=== PATIENT | female | born 1935 | race Caucasian/White ===

== ENCOUNTER 2019-12-19 12:15 | Inpatient (IN) | payer OTHER ==
[2019-12-19 13:22] LABS: Absolute Lymphocytes (CBC) 2.1 K/uL (0.7-4.9); Basophils % 5.4 % (0-1.3); Hematocrit 37.8 % (36.0-45.0); Lymphocytes % 11.9 % (15.3-44.8); MPV 9.2 fL (7.6-11.3); RBC Red Blood Cell Count 3.99 M/uL (3.86-4.86)
[2019-12-19 13:37] LABS: Protime INR 1.03
[2019-12-19 13:48] LABS: Albumin 3.8 g/dL (3.4-5.0); Bilirubin Direct 0.1 mg/dL (0-0.2); Bilirubin Total 0.4 mg/dL (0.2-1.0); Magnesium 1.8 mg/dL (1.8-2.4); Potassium 3.6 mmol/L (3.5-5.1); Protein, Total 7.7 g/dL (6.4-8.2); Troponin (Emerg Dept Use Only) 0.14 ng/mL (0.0-0.045)
--- NOTE | 2019-12-19 14:02 | EDPHYS ---
Physician Documentation [facility] Name: Monique German Age: 84 yrs Sex: Female : 1935 Arrival Date: 12/19/2019 Time: 12:35 Bed 19 Private MD: ED Physician Darryl Apodaca HPI: 12/18 13:29 This 84 yrs old Female presents to ER via EMS with complaints of Chest Pain. jr8 13:29 The patient or guardian reports chest pain that is located primarily in the substernal jr8 area. Onset: acutely, today. The pain does not radiate. Associated signs and symptoms: Pertinent positives: None. The chest pain is described as a heaviness, a pressure. Duration: The patient or guardian reports a single episode, that lasted 15 minute(s). Modifying factors: The symptoms are alleviated by nothing. the symptoms are aggravated by nothing. Severity of pain: At its worst the pain was moderate in the emergency department the pain has resolved and did so just prior to arrival. The patient has not experienced similar symptoms in the past. The patient has not recently seen a physician. Patient stated that she was outside [employer]. Came in to rest. Started to have heavy chest tightness that lasted about 15 minutes. Denied radiation of pain. Stated that she feels fine now. Denies having this in past. No heart history that she is aware of . Historical: - Allergies: 12:55 Demerol; jl7 - Home Meds: 12:55 simvastatin 20 mg Oral tab 1 tab once daily [Active]; Zanaflex 4 mg Oral tab 1 tab jl7 daily [Active]; torsemide 20 mg Oral tab 1 tab once daily [Active]; Detrol LA 4 mg Oral cp24 1 cap once daily [Active]; levothyroxine 100 mcg tab 1 tab once daily [Active]; metformin 500 mg Oral tr24 2 tabs [Active]; Lotrel 5-10 mg Oral cap 1 cap once daily [Active]; PreserVision AREDS oral oral [Active]; Potassium Chloride Oral [Active]; - PMHx: 12:55 Hyperlipidemia; Hypertension; Hypothyroidism; Pulmonary Embolism; jl7 - Immunization history:: Adult Immunizations up to date. - Social history:: Smoking status: Patient denies any tobacco usage or history of. ROS: 13:29 Eyes: Negative for injury, pain, redness, and discharge, ENT: Negative for injury, jr8 pain, and discharge, Neck: Negative for injury, pain, and swelling, Respiratory: Negative for shortness of breath, cough, wheezing, and pleuritic chest pain, Abdomen/GI: Negative for abdominal pain, nausea, vomiting, diarrhea, and constipation, Back: Negative for injury and pain, MS/Extremity: Negative for injury and deformity, Skin: Negative for injury, rash, and discoloration, Neuro: Negative for headache, weakness, numbness, tingling, and seizure. 13:29 Cardiovascular: Positive for chest pain, Negative for edema, orthopnea, palpitations, paroxysmal nocturnal dyspnea. Exam: 13:29 Eyes: Pupils equal round and reactive to light, extra-ocular motions intact. Lids and jr8 lashes normal. Conjunctiva and sclera are non-icteric and not injected. Cornea within normal limits. Periorbital areas with no swelling, redness, or edema. ENT: Nares patent. No nasal discharge, no septal abnormalities noted. Tympanic membranes are normal and external auditory canals are clear. Oropharynx with no redness, swelling, or masses, exudates, or evidence of obstruction, uvula midline. Mucous membranes moist. Neck: Trachea midline, no thyromegaly or masses palpated, and no cervical lymphadenopathy. Supple, full range of motion without nuchal rigidity, or vertebral point tenderness. No Meningismus. Chest/axilla: Normal chest wall appearance and motion. Nontender with no deformity. No lesions are appreciated. Cardiovascular: Regular rate and rhythm with a normal S1 and S2. No gallops, murmurs, or rubs. Normal PMI, no JVD. No pulse deficits. Respiratory: Lungs have equal breath sounds bilaterally, clear to auscultation and percussion. No rales, rhonchi or wheezes noted. No increased work of breathing, no retractions or nasal flaring. Abdomen/GI: Soft, non-tender, with normal bowel sounds. No distension or tympany. No guarding or rebound. No evidence of tenderness throughout. Back: No spinal tenderness. No costovertebral tenderness. Full range of motion. Skin: Warm, dry with normal turgor. Normal color with no rashes, no lesions, and no evidence of cellulitis. MS/ Extremity: Pulses equal, no cyanosis. Neurovascular intact. Full, normal range of motion. Neuro: Awake and alert, GCS 15, oriented to person, place, time, and situation. Cranial nerves II-XII grossly intact. Motor strength 5/5 in all extremities. Sensory grossly intact. Cerebellar exam normal. Normal gait. 13:31 ECG was reviewed by the Attending Physician. jr8 Vital Signs: 12:35 BP 131 / 75; Pulse 103; Resp 17 S; Temp 97.6(O); Pulse Ox 100% on R/A; Weight 65.77 kg jl7 (R); Height 5 ft. 2 in. (157.48 cm) (R); Pain 0/10; 12:35 Body Mass Index 26.52 (65.77 kg, 157.48 cm) jl7 MDM: 12:56 Patient medically screened. jr8 13:53 The patient was not given aspirin in the Emergency Department. Administered by EMS. jr8 Data reviewed: vital signs, nurses notes, lab test result(s), EKG, radiologic studies, plain films. Data interpreted: Pulse oximetry: on room air is 100 %. Interpretation: normal. Counseling: I had a detailed discussion with the patient and/or guardian regarding: the historical points, exam findings, and any diagnostic results supporting the discharge/admit diagnosis, lab results, radiology results, the need for further work-up and treatment in the hospital. 12/18 12:56 Order name: Basic Metabolic Panel; Complete Time: 13:51 12/18 12:56 Order name: CBC with Diff 12/18 12:56 Order name: LFT's; Complete Time: 13:51 12/18 12:56 Order name: Magnesium; Complete Time: 13:51 12/18 12:56 Order name: NT PRO-BNP; Complete Time: 13:51 12/18 12:56 Order name: PT-INR; Complete Time: 13:42 12/18 12:56 Order name: Troponin (emerg Dept Use Only); Complete Time: 13:51 12/18 12:56 Order name: XRAY Chest (1 view); Complete Time: 14:20 12/18 12:56 Order name: EKG; Complete Time: 12:57 12/18 12:56 Order name: Cardiac monitoring; Complete Time: 14:39 12/18 12:56 Order name: EKG - Nurse/Tech; Complete Time: 14:39 jr8 12/18 12:56 Order name: IV Saline Lock; Complete Time: 14:39 jr8 12/18 12:56 Order name: Labs collected and sent; Complete Time: 14:39 jr8 12/18 12:56 Order name: O2 Per Protocol; Complete Time: 14:39 jr8 12/18 12:56 Order name: O2 Sat Monitoring; Complete Time: 14:39 jr8 EC:31 Rate is 88 beats/min. Rhythm is regular, Sinus Rhythm. QRS [place] is Normal. PA interval jr8 is normal at 186 msec. QRS interval is normal at 90 msec. QT interval is normal at 372 msec. Q waves are Present in leads III, aVF. T waves are Inverted in lead III. No ST changes noted. Clinical impression: Inferior WA - age indeterminate. Interpreted by me. Reviewed by me. Administered Medications: 14:00 Drug: Lovenox 1 mg/kg Route: Sub-Q; Site: abdomen; [facility] 14:39 Follow up: Response: No adverse reaction jl7 Disposition: 12/19 08:21 Co-signature as Attending Physician, Darryl Apodaca MD I agree with the assessment and [facility] plan of care. Disposition: 12/19/19 14:02 Hospitalization ordered by Ramesh Martell for Observation. Preliminary diagnosis is Non-ST elevation (NSTEMI) myocardial infarction. - Bed requested for Telemetry/MedSurg (Inpatient). - Status is Observation. jl7 - Condition is Stable. - Problem is new. - Symptoms have improved. Signatures: Dispatcher [employer] [facility] Darryl Apodaca MD MD cha Roszak, Josh, PA PA jr8 Lawrence Arellano RN RN jl7 Kesha Lowery Corrections: (The following items were deleted from the chart) 12/18 14:48 14:02 Hospitalization Ordered by Ramesh Martell DO for Observation. Preliminary eb diagnosis is Non-ST elevation (NSTEMI) myocardial infarction. Bed requested for Telemetry/MedSurg (Inpatient). Status is Observation. Condition is Stable. Problem is new. Symptoms have improved. jr8 14:54 14:48 12/19/2019 14:02 Hospitalization Ordered by Ramesh Martell DO for Observation. eb Preliminary diagnosis is Non-ST elevation (NSTEMI) myocardial infarction. Bed requested for Telemetry/MedSurg (Inpatient). Status is Observation. Condition is Stable. Problem is new. Symptoms have improved. eb 15:49 14:54 12/19/2019 14:02 Hospitalization Ordered by Ramesh Martell DO for Observation. jl7 Preliminary diagnosis is Non-ST elevation (NSTEMI) myocardial infarction. Bed requested for Telemetry/MedSurg (Inpatient). Status is Observation. Condition is Stable. Problem is new. Symptoms have improved. eb
--- NOTE | 2019-12-19 14:02 | ER ---
Nurse's Notes [facility] Name: Monique German Age: 84 yrs Sex: Female : 1935 Arrival Date: 12/19/2019 Time: 12:35 Bed 19 Private MD: Diagnosis: Non-ST elevation (NSTEMI) myocardial infarction Presentation: 12/18 12:35 Chief complaint: EMS states: CP while working in the yard, last 15 minutes, resolved jl7 now. Pt reports CP was severe, felt like an elephant on her chest. Coronavirus screen: Client denies travel out of the [place] in the last 14 days. At this time, the client does not indicate any symptoms associated with coronavirus-19. Ebola Screen: No symptoms or risks identified at this time. Initial Sepsis Screen: Does the patient meet any 2 criteria? No. Patient's initial sepsis screen is negative. Does the patient have a suspected source of infection? No. Patient's initial sepsis screen is negative. Risk Assessment: Do you want to hurt yourself or someone else? Patient reports no desire to harm self or others. Onset of symptoms was December 19, 2019 at 11:30. Care prior to arrival: IV initiated. 20 GA, in the right forearm. Transition of care: patient was not received from another setting of care. 12:35 Method Of Arrival: EMS: [facility] jl7 12:35 Acuity: NBA 2 jl7 Triage Assessment: 12:55 General: Appears in no apparent distress. uncomfortable, Behavior is calm, cooperative, jl7 appropriate for age. Pain: Complains of pain in anterior aspect of left upper chest Pain does not radiate. Pain currently is 0 out of 10 on a pain scale. at worst was 10 out of 10 on a pain scale. Quality of pain is described as pressure, Pain began 1 hour ago. Is lasting a few minutes. Neuro: Level of Consciousness is awake, alert, obeys commands, Oriented to person, place, time, situation. Cardiovascular: Patient's skin is warm and dry. Respiratory: Airway is patent Respiratory effort is even, unlabored, Respiratory pattern is regular, symmetrical. Derm: Skin is pink, warm \T\ dry. Historical: - Allergies: 12:55 Demerol; jl7 - Home Meds: 12:55 simvastatin 20 mg Oral tab 1 tab once daily [Active]; Zanaflex 4 mg Oral tab 1 tab jl7 daily [Active]; torsemide 20 mg Oral tab 1 tab once daily [Active]; Detrol LA 4 mg Oral cp24 1 cap once daily [Active]; levothyroxine 100 mcg tab 1 tab once daily [Active]; metformin 500 mg Oral tr24 2 tabs [Active]; Lotrel 5-10 mg Oral cap 1 cap once daily [Active]; PreserVision AREDS oral oral [Active]; Potassium Chloride Oral [Active]; - PMHx: 12:55 Hyperlipidemia; Hypertension; Hypothyroidism; Pulmonary Embolism; jl7 - Immunization history:: Adult Immunizations up to date. - Social history:: Smoking status: Patient denies any tobacco usage or history of. Screenin:57 Abuse screen: Denies threats or abuse. Denies injuries from another. Nutritional jl7 screening: No deficits noted. Tuberculosis screening: No symptoms or risk factors identified. Fall Risk IV access (20 points). Total [place] Fall Scale indicates No Risk (0-24 pts). Assessment: 12:57 General: See triage assessment. jl7 Vital Signs: 12:35 BP 131 / 75; Pulse 103; Resp 17 S; Temp 97.6(O); Pulse Ox 100% on R/A; Weight 65.77 kg jl7 (R); Height 5 ft. 2 in. (157.48 cm) (R); Pain 0/10; 12:35 Body Mass Index 26.52 (65.77 kg, 157.48 cm) jl7 ED Course: 12:35 Patient arrived in ED. jl7 12:52 Triage completed. jl7 12:55 Zack Villa PA is PHCP. jr8 12:55 Darryl Apodaca MD is Attending Physician. jr8 12:55 Arm band placed on right wrist. EKG completed in triage. Results shown to . jl7 12:57 Patient has correct armband on for positive identification. Placed in gown. Bed in low jl7 position. Call light in reach. Side rails up X 1. ekg monitor tech on. Pulse ox on. NIBP on. Warm blanket given. 12:57 Initial lab(s) drawn, by me, sent to lab. Maintain EMS IV. Dressing intact. Good blood jl7 return noted. Site clean \T\ dry. Gauge \T\ site: 20 right FA. Patient maintains SpO2 saturation greater than 95% on room air. 13:53 XRAY Chest (1 view) In Process Unspecified. EDMS 13:55 Lawrence Arellano, RN is Primary Nurse. jl7 14:01 Ramesh Martell DO is Hospitalizing Provider. jr8 15:35 No provider procedures requiring assistance completed. Patient admitted, IV remains in jl7 place. intact, No redness/swelling at site. Administered Medications: 14:00 Drug: Lovenox 1 mg/kg Route: Sub-Q; Site: abdomen; jl7 14:39 Follow up: Response: No adverse reaction jl7 Outcome: 14:02 Decision to Hospitalize by Provider. jr8 15:35 Admitted to Tele accompanied by tech, via wheelchair, room 402, with chart, Report jl7 called to HYACINTH Ahuja 15:35 Condition: stable 15:35 Discharge instructions given to patient, Instructed on the need for admit, Demonstrated understanding of instructions. 15:49 Patient left the ED. jl7 Signatures: Dispatcher [employer] EDMS Zack Villa PA PA jr8 Lawrence Arellano, RN RN jl7
--- NOTE | 2019-12-19 14:08 | RAD REPORT ---
EXAM DESCRIPTION: RAD - Chest Single View - 12/19/2019 1:53 pm CLINICAL HISTORY: CHEST PAIN COMPARISON: Two view chest September 2017 TECHNIQUE: AP portable chest image was obtained 12/19/2019 1:53 pm . FINDINGS: Lung volumes are reduced compared to the prior study. This accentuates the baseline inters titial pattern. No significant change evident. No failure or volume overload suspected. Heart and vas culature are normal. No measurable pleural effusion and no pneumothorax. No acute bony abnormality se en. No acute aortic findings suspected. IMPRESSION: No acute cardiopulmonary process. No significant change from comparison study.
[2019-12-19] MEDS ORDERED: ENOXAPARIN 60 MG/0.6 ML SQ ONE (14:27)
--- NOTE | 2019-12-19 14:29 | P.HP ---
Certification for Inpatient Patient admitted to: Observation With expected LOS: <2 Midnights Patient will require the following post-hospital care: None Practitioner: I am a practitioner with admitting privileges, knowledge of patient current condition, hospital course, and medical plan of care. Services: Services provided to patient in accordance with Admission requirements found in Title 42 Section 412.3 of the Code of Federal Regulations Patient History Date of Service: 12/19/19 Primary Care Provider: Dr. Bailon Reason for admission: Chest pain History of Present Illness: 84-year-old female with history of diabetes mellitus type 2 non- insulin dependent, hypertension, hyperlipidemia, hypothyroidism, and chronic renal disease. Patient reports chest pain today. It was substernal in area. The pain was persistent for about 15-30 min. She denied any fever, chills, shortness of breath, nausea vomiting. Due to her risk factor she was brought in by EMS. In the ER patient was evaluated. Vital signs stable. EKG shows no significant ST changes. White count 17.8, hemoglobin 12. Sodium 139, potassium 3.6. BUN of 19, creatinine 1.38 with a GFR 36. Glucose 162. Troponin 0.14. Chest x-ray unremarkable. Patient admitted for further observation. When I saw the patient ER, she was without any chest pain. She reported chest pain occurred while she was picking up pecans. Allergies meperidine [From Demerol] Allergy (Unverified 07/14/16 16:35) Unknown Home medications list reviewed: Yes - Past Medical/Surgical History Diabetic: Yes -: Diabetes mellitus type 2 [id number] -: Hypertension -: Hyperlipidemia -: Chronic renal disease stage III -: Hypothyroidism -: Urinary incontinence -: Bilateral knee replacement -: Bilateral shoulder repair -: Appendectomy -: Hysterectomy Psychosocial/ Personal History: Patient lives at home. Takes care of . - Family History Father -: Heart disease Mother -: Heart disease - Social History Smoking Status: Never smoker Alcohol use: No CD- Drugs: No Caffeine use: Yes Place of Residence: Home Review of Systems General: Unremarkable Eyes: Unremarkable ENT: Unremarkable Respiratory: Unremarkable Cardiovascular: Chest Pain, As per HPI Gastrointestinal: Unremarkable Genitourinary: Unremarkable Musculoskeletal: Unremarkable Integumentary: Unremarkable Neurological: Unremarkable Lymphatics: Unremarkable Physical Examination - Physical Exam General: Alert, In no apparent distress, Oriented x3, Cooperative HEENT: Atraumatic, Normocephalic, PERRLA, Mucous membr. moist/pink Neck: Supple Respiratory: Clear to auscultation bilaterally, Normal air movement Cardiovascular: Normal pulses, Regular rate/rhythm Gastrointestinal: Normal bowel sounds, Soft and benign, Non-distended, No tenderness, No masses, No rebound, No guarding Musculoskeletal: No erythema, No tenderness, No warmth Integumentary: No tenderness/swelling, No erythema, No warmth, No cyanosis Neurological: Normal speech, Normal strength at 5/5 x4 extr, Normal tone, Normal affect - Studies Laboratory Data (last 24 hrs) 12/19/19 12:57: PT 12.2, INR 1.03 12/19/19 12:57: WBC 17.9 H, Hgb 12.4, Hct 37.8, Plt Count 319 12/19/19 12:57: Sodium 139, Potassium 3.6, BUN 19 H, Creatinine 1.38 H, Glucose 162 H, Magnesium 1.8, Total Bilirubin 0.4, AST 15, ALT 20, Alkaline Phosphatase 37 L Assessment and Plan - Plan Impression: Chest pain, atypical Hypertension Hyperlipidemia Acute on chronic renal disease stage III Diabetes mellitus type 2 [id number] Hypothyroidism Urinary continence Plan: Chest pain, atypical: Patient will be admitted for further evaluation and observation. Will consult cardiology for further recommendation. Will obtain echocardiogram. Will monitor telemetry and cardiac enzymes. Will provide DVT prophylaxis-Lovenox. Continue aspirin, blood pressure medication and statin medication. Will obtain lab to further evaluate. Await further recommendations from cardiology. Anticipate likely discharge if workup unremarkable. Hypertension: Continue with home medication of Norvasc, benazepril. Hyperlipidemia: Continue with Zocor. Recheck fasting lipid panel in the morning. Acute on chronic renal disease stage III: Will provide IV fluids up to 1 L. may need to make adjustments to her medication. Will benefit with nephrology evaluation as an outpatient. Diabetes mellitus type 2 ear-njphtmc-qgfugkpfn: Will monitor Accu-Cheks. Provide sliding scale. Hold metformin. Will check A1c Hypothyroidism: Will check tsh and free T4. Continue medication. Urinary continence: Provide medication. Discharge Plan: Home Plan to discharge in: 24 Hours - Advance Directives Does patient have a Living Will: No Does patient have a Durable POA for Healthcare: No - Code Status/Comfort Care Code Status Assessed: Yes (Patient is full code) Time Spent Managing Pts Care (In Minutes): 55
[2019-12-19] MEDS ORDERED: TIZANIDINE 4 MG TABLET PO PRN (15:33)
[2019-12-19] MEDS ORDERED: ONDANSETRON 4 MG/2 ML VIAL IV PRN (15:33)
[2019-12-19 15:54] VITALS: BMI 26.5
[2019-12-19] MEDS ORDERED: ENOXAPARIN 40 MG/0.4 ML SQ SCH (16:00)
[2019-12-19] MEDS ORDERED: POTASSIUM CL SA 10 MEQ TAB PO ONE (16:00)
[2019-12-19] MEDS ORDERED: MAGNESIUM SULFATE 1 gm IVPB 1 GM/100 ML BAG IV ONE (16:00)
[2019-12-19] MEDS: NA CHLORIDE 0.9% 1,000 ML IV SCH (16:28)
[2019-12-19] MEDS: INSULIN -REGULAR HUMAN 50 UNIT/0.5 ML ML SQ SCH ×2 (16:30→19:53)
[2019-12-19 18:02] LABS: Urine Appearance CLEAR; Urine Bilirubin NEGATIVE (NEG); Urine Blood NEGATIVE (NEG); Urine Color YELLOW; Urine Glucose NEGATIVE (NEG); Urine Protein NEGATIVE (NEG); Urine Specific Gravity <=1.005 (1.005-1.030); Urine Urobilinogen 0.2 mg/dL (0.2-1.0)
[2019-12-19 18:03] LABS: Urine Microscopic Reflex NO UMIC
[2019-12-19] MEDS: ATORVASTATIN 10 MG TAB PO SCH (19:52)
[2019-12-19 20:09] LABS: CKMB Creatine Kinase MB 2.4 ng/mL (0.3-3.6)
[2019-12-19 20:13] LABS: Troponin I 0.7 ng/mL (0.0-0.045)
[2019-12-19] MEDS ORDERED: TOLTERODINE LA 4 MG CAP PO SCH (21:00)
[2019-12-19] MEDS ORDERED: ENOXAPARIN 80 MG/0.8 ML SQ SCH (21:00)
[2019-12-19 22:00] LABS: Blood Morphology Comment NOT SEEN (NOT SEEN); Platelet Estimate ADEQ
[2019-12-20] MEDS: ACETAMINOPHEN 500 MG TAB PO PRN (00:07)
[2019-12-20 03:37] LABS: Absolute Lymphocytes (CBC) 3.2 K/uL (0.7-4.9); Basophils % 0.5 % (0-1.3); Hematocrit 37.4 % (36.0-45.0); Lymphocytes % 18.2 % (15.3-44.8); MPV 8.8 fL (7.6-11.3); RBC Red Blood Cell Count 3.99 M/uL (3.86-4.86)
[2019-12-20 03:57] LABS: Magnesium 2.2 mg/dL (1.8-2.4); Potassium 4.1 mmol/L (3.5-5.1); Thyroid Stimulating Hormone 0.236 uIU/mL (0.360-3.740)
[2019-12-20 03:58] LABS: CKMB Creatine Kinase MB 3.1 ng/mL (0.3-3.6)
[2019-12-20 03:59] LABS: Troponin I 0.76 ng/mL (0.0-0.045)
[2019-12-20] MEDS: INSULIN -REGULAR HUMAN 50 UNIT/0.5 ML ML SQ SCH ×4 (07:30→20:35)
[2019-12-20] MEDS: ASPIRIN EC 81 MG TAB PO SCH (08:21)
[2019-12-20] MEDS: CYANOCOBALAMIN 1,000 MCG TAB PO SCH (08:21)
[2019-12-20] MEDS: AMLODIPINE 5 MG TAB PO SCH (08:21)
[2019-12-20] MEDS: TORSEMIDE 20 MG TAB PO SCH (08:22)
[2019-12-20] MEDS: TOLTERODINE LA 4 MG CAP PO SCH (08:22)
[2019-12-20] MEDS ORDERED: ENOXAPARIN 40 MG/0.4 ML SQ SCH (09:00)
[2019-12-20] MEDS ORDERED: BENAZEPRIL 10 MG TAB PO SCH (09:00)
--- NOTE | 2019-12-20 09:57 | P.PN ---
Subjective Date of Service: 12/20/19 Primary Care Provider: Dr. Bailon Chief Complaint: Chest pain Subjective: Other (Patient without chest pain or shortness of breath pre) Physical Examination - Vital Signs Temperature: 97.5 F Blood Pressure: 153/71 Pulse: 78 Respirations: 16 Pulse Ox (%): 95 - Physical Exam General: Alert, In no apparent distress, Oriented x3, Cooperative HEENT: Atraumatic Neck: Supple Respiratory: Clear to auscultation bilaterally, Normal air movement Cardiovascular: Normal pulses, Regular rate/rhythm Gastrointestinal: Normal bowel sounds, Soft and benign, Non-distended, No masses, No rebound, No guarding Neurological: Normal speech, Normal strength at 5/5 x4 extr, Normal tone, Normal affect - Studies Laboratory Data (last 24 hrs) 12/19/19 12:57: PT 12.2, INR 1.03 12/19/19 12:57: WBC 17.9 H, Hgb 12.4, Hct 37.8, Plt Count 319 12/19/19 12:57: Sodium 139, Potassium 3.6, BUN 19 H, Creatinine 1.38 H, Glucose 162 H, Magnesium 1.8, Total Bilirubin 0.4, AST 15, ALT 20, Alkaline Phosphatase 37 L Medications List Reviewed: Yes Assessment & Plan Discharge Plan: Home Plan to discharge in: 48 Hours Physician Review Additional Text: Impression: Chest pain, with noted elevation in troponin secondary to NSTEMI Hypertension Hyperlipidemia Acute on chronic renal disease stage III Diabetes mellitus type 2 [id number]-poddsztri Hypothyroidism Urinary continence Plan: Chest pain, with noted elevation in troponin secondary to NSTEMI: Lovenox was increased to 1 milligram/kilograms subcu twice daily. Patient without chest pain at this time. Continue aspirin, blood pressure medication and statin. Await recommendations by Cardiology. Anticipate need for heart catheterization. Will discuss further with cardiology. Hypertension: Continue with home medication of Norvasc, benazepril. Will monitor and adjust appropriately. Hyperlipidemia: Continue with Zocor. LDL 65 Acute on chronic renal disease stage III: Continue with IV fluids up to 1 L. may need to make adjustments to her medication. Will benefit with nephrology evaluation as an outpatient. Diabetes mellitus type 2 [id number]-dvzwkxpcg: A1c 6.0. Continue sliding scale. Hold metformin in anticipation for possible need for heart catheterization. Hypothyroidism: Continue medication. Urinary continence: Continue medication. Time Spent Managing Pts Care (In Minutes): 55
[2019-12-20] MEDS: NA CHLORIDE 0.9% 1,000 ML IV SCH (11:33)
[2019-12-20] MEDS: ENOXAPARIN 80 MG/0.8 ML SQ SCH (13:31)
[2019-12-20] MEDS: METOPROLOL TAR 25 MG TAB PO SCH (17:08)
--- NOTE | 2019-12-20 19:33 | CON ---
Date of Consultation: 12/20/2019 History Of Present Illness: [id number]-[id number] myocardial infarction. History Of Present Illness: Ms. German is an 84-year-old woman, who has a history of hypertension, d iabetes, dyslipidemia, but no coronary artery disease that is known. She has had negative cardiac wo rkup many years ago in [place] by Dr. Cardenas, all of which has been negative, but she came in with cohen bsternal chest pressure radiating to the arm with shortness of breath, nausea, and diaphoresis, and w as found to have a troponin of 0.76. EKG showed nonspecific changes. Her chest x-ray was negative. Her creatinine is 1.03. She had a triglyceride of 386 and a TSH of 0.2. She continues to have inte rmittent chest pain with minimal exertion. She denied PND, orthopnea, pedal edema, palpitation, or s yncope. She denied any fever or chills. Past Medical History: As stated above. Allergies: SHE IS ALLERGIC TO DEMEROL. Review of Systems: Negative. Social History: Negative. Family History: Positive for heart disease. Medications: At home include aspirin, Lipitor, benazepril, Lasix, metformin, and Synthroid. Physical Examination: Vital Signs: Stable. She is afebrile. HEENT: Negative. Neck: Supple with no bruit. Chest: Clear to auscultation and percussion. Cardiac: Regular rhythm and rate. No murmurs, gallops, or rubs. Abdomen: Benign. Extremities: No clubbing, cyanosis, or edema. Skin: Dry and intact. Extremities: Her pulses were present in the femoral and distal areas. Neurologic: She was nonfocal. Impression And Plan: Bwc-MC-rfjhntroo myocardial infarction. She is presently on aspirin, Lipitor, and Lasix as well as benazepril, metformin, and Synthroid. I think she is also on Lovenox, which we will hold after tomorrow's dose. We will add metoprolol 25 mg b.i.d. We will plan a heart catheteri zation on Sunday next week. She may require TriCor. She may need her thyroid dose adjusted. Her bl ood pressure, diabetes, and dyslipidemia are fairly stable at this point except for the triglyceride. We will continue to follow her. NB/MODL Voice ID: [id number] Report ID: [id number]
[2019-12-20] MEDS ORDERED: NITROGLYCERIN 0.4 MG/TAB SL PRN (20:17)
[2019-12-20] MEDS: BENAZEPRIL 10 MG TAB PO SCH (20:34)
[2019-12-20] MEDS: ATORVASTATIN 10 MG TAB PO SCH (20:34)
[2019-12-20] MEDS ORDERED: NITROGLYCERIN 0.4 MG/TAB SL ONE (20:36)
[2019-12-21] MEDS: METOPROLOL TAR 25 MG TAB PO SCH ×2 (06:09→18:07)
[2019-12-21] MEDS: LEVOTHYROXINE SOD 0.1 MG TAB PO SCH (06:09)
[2019-12-21] MEDS: INSULIN -REGULAR HUMAN 50 UNIT/0.5 ML ML SQ SCH ×4 (07:30→20:56)
--- NOTE | 2019-12-21 07:46 | EKG ---
Test Date: 2019-12-19 Test Time: 12:42:57 Folder And Notcher: KATHLEEN MEASUREMENT RESULTS: Intervals: Rate: 88 VT: 186 QRSD: 90 QT: 372 QTc: 450 [place]: P: 27 VT: 186 QRS: 2 T: 19 INTERPRETIVE STATEMENTS: Normal sinus rhythm with sinus arrhythmia Inferior infarct, age undetermined Anterior infarct, age undetermined Abnormal ECG Compared to ECG 09/22/2009 12:23:32 Myocardial infarct finding now present Electronically Signed On 12-21-19 07:41:18 DIRECTOR OF DEVELOPMENT AND MARKETING by Gregory Jarrett
[2019-12-21] MEDS: TOLTERODINE LA 4 MG CAP PO SCH (08:58)
[2019-12-21] MEDS: BENAZEPRIL 10 MG TAB PO SCH (08:58)
[2019-12-21] MEDS: TORSEMIDE 20 MG TAB PO SCH (08:58)
[2019-12-21] MEDS: ASPIRIN EC 81 MG TAB PO SCH (08:58)
[2019-12-21] MEDS: OCUVITE (VIT A,C & E/LUTEIN/MINERAL) TABLET PO SCH (08:58)
[2019-12-21] MEDS: AMLODIPINE 5 MG TAB PO SCH (08:59)
[2019-12-21] MEDS: CYANOCOBALAMIN 1,000 MCG TAB PO SCH ×2 (08:59→09:00)
[2019-12-21] MEDS: NA CHLORIDE 0.9% 1,000 ML IV SCH (09:00)
--- NOTE | 2019-12-21 10:01 | P.PN ---
Subjective Date of Service: 12/21/19 Primary Care Provider: Dr. Bailon Chief Complaint: Chest pain Subjective: Doing well Physical Examination - Vital Signs Temperature: 97.6 F Blood Pressure: 125/68 Pulse: 68 Respirations: 18 Pulse Ox (%): 94 - Physical Exam General: Alert, In no apparent distress, Oriented x3, Cooperative HEENT: Atraumatic Neck: Supple Respiratory: Clear to auscultation bilaterally, Normal air movement Cardiovascular: Normal pulses, Regular rate/rhythm Gastrointestinal: Normal bowel sounds, Soft and benign, Non-distended, No tenderness, No masses, No rebound, No guarding Musculoskeletal: No tenderness, No warmth Neurological: Normal speech, Normal strength at 5/5 x4 extr, Normal tone, Normal affect - Studies Microbiology Data (last 24 hrs): 12/19/19 16:25 Nasopharnyx Coronavirus COVID-19 PCR - Final Medications List Reviewed: Yes Assessment & Plan Discharge Plan: Home Plan to discharge in: 48 Hours Physician Review Additional Text: Impression: Chest pain, with noted elevation in troponin secondary to NSTEMI Hypertension Hyperlipidemia Acute on chronic renal disease stage III Diabetes mellitus type 2 [id number] Hypothyroidism Urinary continence Plan: Chest pain, with noted elevation in troponin secondary to NSTEMI: Continue current medication. Patient on aspirin, BP meds, beta lesley, statin medication and Lovenox. Case discussed with cardiology. Patient will have heart catheterization tomorrow. Await findings. Anticipate improvement over the next 24-48 hr with possible discharge pending heart catheterization results. I will turn the service over to Dr. Bailon tomorrow. I will go over plan of care with him. Hypertension: Continue with home medication of Norvasc, benazepril, metoprolol. Will monitor and adjust appropriately. Hyperlipidemia: Continue with Zocor, fish oil. LDL 65, TG 386 Acute on chronic renal disease stage III: Will benefit with nephrology evaluation as an outpatient. Diabetes mellitus type 2 [id number]: A1c 6.0. Continue sliding scale. Hold metformin in anticipation for possible need for heart catheterization. Hypothyroidism: Continue medication. Urinary continence: Continue medication. Time Spent Managing Pts Care (In Minutes): 55
[2019-12-21] MEDS: MORPHINE 2 MG/ML SYR IV PRN (13:57)
[2019-12-21] MEDS: ENOXAPARIN 80 MG/0.8 ML SQ SCH (14:03)
[2019-12-21] MEDS: ATORVASTATIN 10 MG TAB PO SCH (20:56)
[2019-12-21] MEDS: DOCOSAHEXANOIC AC/EPA 1000 MG PO SCH (20:56)
[2019-12-21] MEDS ORDERED: NITROGLYCERIN 0.4 MG/TAB SL ONE (20:57)
[2019-12-22] MEDS: METOPROLOL TAR 25 MG TAB PO SCH ×2 (06:09→17:43)
[2019-12-22] MEDS: LEVOTHYROXINE SOD 0.1 MG TAB PO SCH (06:09)
[2019-12-22] MEDS ORDERED: NA CHLORIDE 0.9% 1,000 ML ONE (06:21)
[2019-12-22] MEDS: INSULIN -REGULAR HUMAN 50 UNIT/0.5 ML ML SQ SCH ×4 (07:30→19:55)
[2019-12-22] MEDS: ASPIRIN EC 81 MG TAB PO SCH (08:29)
[2019-12-22] MEDS: AMLODIPINE 5 MG TAB PO SCH (08:29)
[2019-12-22] MEDS: CYANOCOBALAMIN 1,000 MCG TAB PO SCH ×2 (08:30→12:46)
[2019-12-22] MEDS: DOCOSAHEXANOIC AC/EPA 1000 MG PO SCH ×2 (08:42→19:48)
--- NOTE | 2019-12-22 09:23 | PN ---
Date of Progress Note: 12/21/2019 Ms. German has came in with non-ST elevation myocardial infarction. Continues to have intermittent c hest pressure. Yesterday, she had 1 episode that was resolved with 1 nitroglycerin and 2 mg of morph ine IV. She did not have any further chest pain since. Her troponin peaked at 0.76. Her vital sign s remained stable. She is afebrile. She is in sinus rhythm. Her exam did not reveal any congestive heart failure. There were no rales or edema. The plan is to continue her present regimen including aspirin, Lipitor, benazepril, Lasix, metformin, Synthroid, metoprolol. We will hold Lovenox the day before the catheterization. Catheterization is planned for 12/22/2019. ZEHRA Voice ID: [id number] Report ID: [id number]
[2019-12-22] MEDS ORDERED: HEPA 1000U/500MLS 1,000 UNIT/500 ML BAG IV ONE ×2 (10:29→11:41)
[2019-12-22] MEDS ORDERED: LIDOCAINE 1% 20 ML MDV ONE (10:29)
[2019-12-22] MEDS ORDERED: HEPARIN 5000 UNIT/ML 1 ML VIAL ONE (10:30)
[2019-12-22] MEDS ORDERED: MIDAZOLAM HCL 2 MG/2 ML INJ ONE (10:30)
[2019-12-22] MEDS ORDERED: ATROPINE SULF 1 MG/10 ML SYR IV ONE (10:30)
[2019-12-22] MEDS ORDERED: FENTANYL CITR 100 MCG/2 ML ONE (10:30)
[2019-12-22] MEDS ORDERED: VERAPAMIL HCL 10 MG/4 ML VIAL IV ONE (10:30)
[2019-12-22] MEDS ORDERED: TICAGRELOR 90 MG TABLET PO ONE (11:44)
[2019-12-22] MEDS: OCUVITE (VIT A,C & E/LUTEIN/MINERAL) TABLET PO SCH (12:46)
[2019-12-22] MEDS: TORSEMIDE 20 MG TAB PO SCH (12:47)
[2019-12-22] MEDS: TOLTERODINE LA 4 MG CAP PO SCH (12:51)
[2019-12-22] MEDS: ENOXAPARIN 80 MG/0.8 ML SQ SCH (13:32)
[2019-12-22] MEDS: ATORVASTATIN 10 MG TAB PO SCH (19:48)
[2019-12-23] MEDS: MORPHINE 2 MG/ML SYR IV PRN (00:36)
--- NOTE | 2019-12-23 01:33 | OP ---
Date of Procedure: 12/22/2019 Surgeon: PHYLLIS LAROSE Procedure Performed: 1.Selective coronary angiogram. 2.Percutaneous coronary intervention of the mid left anterior descending, 99% stenosis. This is the culprit for the acute myocardial infarction. Indication: Acute non-ST elevation myocardial infarction. Access: Right radial artery 6-Maldivian closed with TR band. Complications: None. Anesthesia: Total sedation time was 55 minutes. Description Of Procedure: After risks, benefits, and alternatives were explained, the patient agreed to the procedure and signed informed consent. The patient was brought into the cardiac catheterizat ion laboratory and prepped and draped in the usual sterile fashion. We accessed the right radial art autumn using pediatric micropuncture kit after achieving adequate moderate sedation using fentanyl and V ersed. Then, we put a 6-Maldivian slender sheath and took a 5-Maldivian Excello catheter into the aortic nicolette t, engaged left main and right coronary artery, and took standard views, and then decided to proceed with the intervention. Intervention Details: We gave heparin to assure ACT level above 250 throughout the procedure and the n we loaded the patient with 180 mg of Brilinta and we took a 6-Maldivian EBU 3.5 guide into the aortic root, engaged the left main, and then we took a short Runthrough wire into the left main and LAD acro ss the stenotic area and then we used a 2.5 x 50 mm NC balloon. Lesion was not expanded fully. Then , we used a 3.5 x 50 mm NC balloon and did the IVUS and the affected luminal area was 3.2 sq mm and t here was a large burden of calcium. We tried to get a Emelle balloon, however, due to the calcium burden could not pass it through, but using a 3.5 x 50 mm NC balloon, the lesion opened and dilated very well. Then, we took a 3.0 x 60 mm Synergy drug-eluting stent across the stenosis successfully. The stent was deployed with 0% residual restenosis. Then, we removed all catheters and wires, and p laced TR band after removal of the sheath with good hemostasis. Findings: 1.Left main distal has 60% stenosis and the proximal LAD has about 60% stenosis. 2.LAD proximal 60% stenosis and mid LAD 99% stenosis status post successful PCI as above, which is a culprit for the AL. 3.Left circumflex is moderate sized with OM. First OM has 90% stenosis in the midportion long lesio n. 4.RCA is large, dominant, with no significant coronary artery disease, has in the midportion at 10% to 20% with this large vessel. Impression: Severe multivessel coronary artery disease involving the distal left main and proximal L AD and mid LAD as well as the mid OM. Plan: Status post successful PCI of the very tight lesion of the mid LAD. It was 99%. I had discus cassie with the patient before sedation and she absolutely refuses an open-heart surgeries at this poin t. We will continue Brilinta, aspirin, and high dose statin, and we will plan on intervention of the first OM and distal left main and proximal LAD is to be done at a higher level of care facility and will probably need some form of atherectomy prior to undergoing a stent. Discussed this with the finesse linton. She agreed to the plan. At this point, she is hemodynamically stable. She will be observed o vernight. If no complications, the patient can be released and will arrange for PCI distal left main and proximal LAD as well as OM at a later time with the use of atherectomy. SR/MODL Voice ID: [id number] Report ID: [id number]
[2019-12-23] MEDS: METOPROLOL TAR 25 MG TAB PO SCH (05:10)
[2019-12-23] MEDS: LEVOTHYROXINE SOD 0.1 MG TAB PO SCH (05:10)
--- NOTE | 2019-12-23 07:28 | ECHO ---
HEIGHT: 5 ft 2 in WEIGHT: 145 lb 0 oz DATE OF STUDY: 12/22/[address]: Ramesh Martell DO 2-DIMENSIONAL: YES M.MODE: YES DOPPLER: YES COLOR FLOW: YES TDS: PORTABLE: DEFINITY: BUBBLE STUDY: DIAGNOSIS: CHEST PAIN CARDIAC HISTORY: CATHERIZATION: NO SURGERY: NO PROSTHETIC VALVE: NO PACEMAKER: NO MEASUREMENTS (cm) DIASTOLIC (NORMALS) SYSTOLIC (NORMALS) IVSd 1.0 (0.6-1.2) LA Diam 2.7 (1.9-4.0) LVEF 63% LVIDd 3.5 (3.5-5.7) LVIDs 2.3 (2.0-3.5) %FS 33% LVPWd 1.0 (0.6-1.2) Ao Diam 3.1 (2.0-3.7) 2 DIMENSIONAL ASSESSMENT: RIGHT ATRIUM: NORMAL LEFT ATRIUM: NORMAL RIGHT VENTRICLE: NORMAL LEFT VENTRICLE: NORMAL TRICUSPID VALVE: NORMAL MITRAL VALVE: MILD MITRAL REGURGITATION PULMONIC VALVE: NORMAL AORTIC VALVE: MILD AORTIC INSUFFIENCY PERICARDIAL EFFUSION: NONE AORTIC ROOT: NORMAL LEFT VENTRICULAR WALL MOTION: NORMAL DOPPLER/COLOR FLOW: SEE BELOW COMMENTS: NORMAL LEFT VENTRICULAR EJECTION FRACTION 55-60% WITH NORMAL WALL MOTION. MILD MITRAL REGURGITATION, TRICUSPID REGURGITATION, MILD AORTIC INSUFFIENCY. TECHNOLOGIST: DORCAS SAHRAF
[2019-12-23] MEDS: INSULIN -REGULAR HUMAN 50 UNIT/0.5 ML ML SQ SCH ×2 (07:30→11:30)
[2019-12-23] MEDS: CYANOCOBALAMIN 1,000 MCG TAB PO SCH ×2 (09:00→09:05)
[2019-12-23] MEDS: TORSEMIDE 20 MG TAB PO SCH (09:00)
--- NOTE | 2019-12-23 09:00 | PN ---
Date of Progress Note: 12/23/2019 Ms. German had come in with non-ST elevation myocardial infarction. Heart catheterization yesterday revealed distal left main disease, severe LAD disease, severe circumflex disease, normal RCA. Appare ntly at the time of the catheterization, the patient had refused to have a coronary artery bypass ashutosh natalio. Dr. Davidson performed a stent on the LAD, which was the tightest lesion she had. There is a pl an for staged left main and circumflex stent. Overnight, she continues to have some chest pain, reli eved with nitroglycerin and aspirin. I will bring up the issue again with the patient and Dr. Abdi huff and see if she is willing to still go to bypass surgery if possible, which is really the best cours e of therapy. If she continues to refuse, we will continue the plan as far as the left main stent an d the OM stent. We will continue her present regimen. We could certainly go up on her with beta blo cker dose and maybe put her on Imdur 30 mg daily. Also, we should resume Lovenox. CODI/PRINCESS Voice ID: [id number] Report ID: [id number]
[2019-12-23] MEDS: DOCOSAHEXANOIC AC/EPA 1000 MG PO SCH (09:04)
[2019-12-23 09:05] VITALS: O2SAT 98
[2019-12-23] MEDS: OCUVITE (VIT A,C & E/LUTEIN/MINERAL) TABLET PO SCH (09:06)
[2019-12-23] MEDS: ASPIRIN EC 81 MG TAB PO SCH (09:06)
[2019-12-23] MEDS: TOLTERODINE LA 4 MG CAP PO SCH (09:06)
[2019-12-23] MEDS: AMLODIPINE 5 MG TAB PO SCH (09:06)
[2019-12-23] MEDS: ACETAMINOPHEN 500 MG TAB PO PRN (10:47)
[2019-12-23 12:58] VITALS: BP 141/68; TEMP 97
--- NOTE | 2019-12-24 07:19 | EKG ---
Test Date: 2019-12-23 Test Time: 00:54:02 [employer]ician [employer]: BOGDAN MEASUREMENT RESULTS: Intervals: Rate: 88 ID: [id number] QRSD: 80 QT: 344 QTc: 416 [place]: P: 80 ID: [id number] QRS: 8 T: 39 INTERPRETIVE STATEMENTS: Normal sinus rhythm Normal ECG Compared to ECG 12/21/2019 21:17:06 Sinus arrhythmia no longer present Myocardial infarct finding no longer present Electronically Signed On 12-24-19 07:17:47 TETRYL [employer]ING T[employer] OPERATOR by Gregory Jarrett
--- NOTE | 2019-12-25 11:35 | PN ---
Date of Progress Note: 12/23/2019 Subjective: The patient had 1 episode of chest pain during the night, relieved by morphine. She is presently asymptomatic, awaiting transfer to [place] for stent placement of the LAD. When bed availa ble, we will transfer. HR/MODL Voice ID: [id number] Report ID: [id number]
== END 2019-12-23 15:21 | disposition short-term general hospital (02) | DRG 247 ==
LOC: ER 12:15 → ERHOLD 14:13 → 4TH 15:34 → OBSVTOIN 12-20 10:45 → 2ND 12-22 15:23
PROVIDERS: ADMIT Family Medicine; ATTEND Family Medicine
PROC: 027034Z Dilation of Coronary Artery, One Artery with Drug-eluting Intraluminal Device, Percutaneous Approach (ICD-10-PCS; principal; 2019-12-22)
PROC: 4A023N7 Measurement of Cardiac Sampling and Pressure, Left Heart, Percutaneous Approach (ICD-10-PCS; 2019-12-22)
PROC: B2111ZZ Fluoroscopy of Multiple Coronary Arteries using Low Osmolar Contrast (ICD-10-PCS; 2019-12-22)
DX: I21.4 Non-ST elevation (NSTEMI) myocardial infarction (principal); E03.9 Hypothyroidism, unspecified; I25.10 Atherosclerotic heart disease of native coronary artery without angina pectoris; E78.5 Hyperlipidemia, unspecified; I12.9 Hypertensive chronic kidney disease with stage 1 through stage 4 chronic kidney disease, or unspecified chronic kidney disease; N18.30 Chronic kidney disease, stage 3 unspecified; E11.22 Type 2 diabetes mellitus with diabetic chronic kidney disease; N28.9 Disorder of kidney and ureter, unspecified; Z88.5 Allergy status to narcotic agent; Z79.899 Other long term (current) drug therapy; Z86.711 Personal history of pulmonary embolism; Z79.890 Hormone replacement therapy; Z96.653 Presence of artificial knee joint, bilateral; Z90.49 Acquired absence of other specified parts of digestive tract; Z90.710 Acquired absence of both cervix and uterus; Z79.82 Long term (current) use of aspirin; Z79.84 Long term (current) use of oral hypoglycemic drugs; Z53.29 Procedure and treatment not carried out because of patient's decision for other reasons; Z20.828 Contact with and (suspected) exposure to other viral communicable diseases
CPT/HCPCS: 36415; 71045; 80048; 80061; 80076; 81003; 82550; 82553; 82947; 83036; 83735; 83880; 84439; 84443; 84484; 85025; 85347; 85610; 92978; 93005; 93306; 93458; 96372; 99285; C1725; C1893; C9600; J1644; J1650; J2250; J2270; J3010; J3475; J7030; U0002

== ENCOUNTER 2019-12-28 21:46 | Emergency (ER) | payer OTHER ==
--- OUTSIDE RECORDS SUMMARY | 2019-12-28 21:49 | XMS REPORT | Clinical Summary ---
:1935 Author Organization [facility] Address [address] [place] [address] Care Team Providers Name Role Phone Unavailable Primary Care Provider Unavailable Allergies Active Allergy Reactions Severity Noted Date Comments Meperidine (Pf) 12/23/2019 Medications Medication Sig Dispensed Refills Start End Date Status Date tiZANidine Take 4 mg by 0 Active (ZANAFLEX) 4 MG mouth daily. tablet torsemide Take 20 mg by 0 Active (DEMADEX) 20 MG mouth daily. tablet tolterodine Take 1 mg by 0 Activ e (DETROL) 1 MG mouth 2 (two) tablet times daily. tolterodine Take 4 mg by 0 Activ e (DETROL LA) 4 MG mouth daily. 24 hr capsule levothyroxine Take 10 mcg by 0 A ctive (SYNTHROID, mouth Every LEVOTHROID) 100 morning on an MCG tablet empty stomach. vit Take by mouth 0 Active C/E/Zn/coppr/lutei daily. n/zeaxan (PRESERVISION AREDS-2 ORAL) cyanocobalamin, Take 1,000 mcg 0 Active vitamin B-12, by mouth daily. (vitamin B-12) 1000 MCG tablet potassium chloride Take 10 mEq by 0 Active SA mouth daily. (K-DUR,KLOR-CON) 10 MEQ tablet atorvastatin Take 4 tablets 30 tablet 2 12/27/19 Ac tive (LIPITOR) 10 MG (40 mg total) 0 21 tablet by mouth nightly. aspirin 81 MG EC Take 1 tablet 30 tablet 2 12/28/19 Active tablet (81 mg total) 0 21 by mouth daily. clopidogreL Take 1 tablet 30 tablet 2 12/28/19 Acti ve (PLAVIX) 75 mg (75 mg total) 0 21 tablet by mouth daily. docusate sodium Take 1 capsule 10 capsule 0 01/06/20 Active (COLACE) 100 MG (100 mg total) 0 20 capsule by mouth 2 (two) times daily for 10 days. metoprolol Take 0.5 60 tablet 2 12/27/19 Active tartrate tablets (12.5 0 21 (LOPRESSOR) 25 MG mg total) by tablet mouth 2 (two) times daily. nitroglycerin Put 1 pill 20 tablet 0 12/27/19 Activ e (NITROSTAT) 0.4 MG under tongue 0 21 SL tablet every 5min as needed for chest pain.No more than 3 doses in 15min.Call 911 if pain unrelieved 5min after 1st dose. simvastatin Take 20 mg by 0 12/27/19 Disc ontinued (ZOCOR) 20 MG mouth nightly. 20 ( Stop Taking at tablet Discharge) amLODIPine-benazep Take 1 capsule 0 Discontinued ril (LOTREL 5-10) by mouth daily. 20 (Stop Taking at 5-10 mg per Discharg e) capsule metFORMIN Take 500 mg by 0 12/27/19 Disco ntinued (GLUCOPHAGE) 500 mouth 2 (two) 20 (Stop Taking at MG tablet times daily Discharg e) with breakfast and dinner. Active Problems Problem Noted Date CAD (coronary artery disease) 12/23/2019 Encounters Date Type Specialty Care Team Description 12/26/2019 Surgery Nga Ozuna PCI, MD 12/24/2019 Surgery Nga Ozuna L CATH & PRASHANTH Fowler MD 12/23/2019 - Hospital Encounter Shavonne Lopze, Coron jocelyn artery disease involving diomede coronary artery of diomede heart without angina pectoris; 12/27/2019 Lou Alan MD Essential hypertension; Agustina, [place] Hyperlipidemia , unspecified hyperlipidemia type; MD Jaylyn Hypothyroidism, unspecified type Kait Bonilla MD 12/23/2019 Travel 12/23/2019 Documentation Internal Medicine Shavonne Lopez, Lou Alan MD after 12/27/2018 Social History Tobacco Use Types Packs/Day Years Used Date Never Assessed Sex Assigned at Date Recorded Not on file COVID-19 Exposure Response Date Recorded In the last month, have you been in contact with No / Unsure 12/23/2019 5:49 PM MENTAL HEALTH CASE MANAGER someone who was confirmed or suspected to have Coronavirus / COVID-19? Last Filed Vital Signs Vital Sign Reading Time Taken Comments Blood Pressure 147/65 12/27/2019 3:30 PM MENTAL HEALTH CASE MANAGER Pulse 94 12/27/2019 3:30 PM MENTAL HEALTH CASE MANAGER Temperature 36.3 C (97.3 F) 12/27/2019 3:30 PM MENTAL HEALTH CASE MANAGER Respiratory Rate 18 12/27/2019 3:30 PM MENTAL HEALTH CASE MANAGER Oxygen Saturation 98% 12/27/2019 3:30 PM MENTAL HEALTH CASE MANAGER Inhaled Oxygen Concentration - - Weight 64.4 kg (141 lb 15.6 oz) 12/26/2019 4:00 AM MENTAL HEALTH CASE MANAGER Height 157.5 cm (5' 2") 12/23/2019 5:00 PM MENTAL HEALTH CASE MANAGER Body Mass Index 25.97 12/23/2019 5:00 PM MENTAL HEALTH CASE MANAGER Plan of Treatment Health Maintenance Due Date Last Done Comments PNEUMOCOCCAL 65+ YRS (1 of 1 - [id number]) 12/01/2000 MEDICARE ANNUAL WELLNESS (YEAR 2 or FIRST YEAR if no 11/06/2001 IPPE) INFLUENZA VACCINE (#1) 2019 Implants Implanted Type Area Snag Grinder Device Identifier Shelf Model / Expiration Serial / Date Lot Stent Synergy Mr [id number] - [id number] IMPLANTS [employer] [id number] 02/11/2021 [id number] / Implanted: Qty: 1 on 12/24/2019 by Nga Ceballos MD at [facility] SCI:INTERV / CARDIOLOGY [id number] Stent Synergy Mr [id number] - [id number] IMPLANT[employer] [id number] 04/07/2020 [id number] / Implanted: Qty: 1 on 12/26/2019 by Nga Ceballos MD at [facility] SCI:INTERV / CARDIOLOGY [id number] Description:Lt main [id number] [employer] [id number] / Implanted: Qty: 1 on 12/24/2019 by Nga Ceballos MD at [facility] / [id number] [employer] [id number] / Implanted: Qty: 1 on 12/26/2019 by Nga Ceballos MD at [facility] / Procedures Procedure Name Priority Date/Time Associated Diagnosis Comme nts POCT-GLUCOSE METER Routine 12/27/2019 11:32 Resul ts for this AM MENTAL HEALTH CASE MANAGER procedure are i n the results section. POCT-GLUCOSE METER Routine 12/27/2019 7:32 Resul ts for this AM MENTAL HEALTH CASE MANAGER procedure are i n the results section. CBC (HEMOGRAM ONLY) Routine 12/27/2019 5:25 Resu lts for this AM MENTAL HEALTH CASE MANAGER procedure are i n the results section. BASIC METABOLIC PANEL Routine 12/27/2019 5:25 Re sults for this (7) AM MENTAL HEALTH CASE MANAGER procedure are i n the results section. POCT-GLUCOSE METER Routine 12/26/2019 8:49 Resul ts for this PM MENTAL HEALTH CASE MANAGER procedure are i n the results section. POCT-ACT Routine 12/26/2019 2:38 Results for this PM MENTAL HEALTH CASE MANAGER procedure are i n the results section. POCT-ACT Routine 12/26/2019 1:51 Results for this PM MENTAL HEALTH CASE MANAGER procedure are i n the results section. POCT-ACT Routine 12/26/2019 9:01 Results for this AM MENTAL HEALTH CASE MANAGER procedure are i n the results section. POCT-ACT Routine 12/26/2019 8:50 Results for this AM MENTAL HEALTH CASE MANAGER procedure are i n the results section. POCT-ACT Routine 12/26/2019 8:10 Results for this AM MENTAL HEALTH CASE MANAGER procedure are i n the results section. POCT-ACT Routine 12/26/2019 7:57 Results for this AM MENTAL HEALTH CASE MANAGER procedure are i n the results section. (CELLAVISION MANUAL Routine 12/26/2019 3:53 Resu lts for this DIFF) AM MENTAL HEALTH CASE MANAGER procedure are i n the results section. CBC W/PLT COUNT & Routine 12/26/2019 3:53 Result s for this AUTO DIFFERENTIAL AM MENTAL HEALTH CASE MANAGER procedure are in the results section. CBC W/PLT COUNT & Routine 12/26/2019 3:53 Result s for this AUTO DIFFERENTIAL AM MENTAL HEALTH CASE MANAGER procedure are in the results section. MAGNESIUM Routine 12/26/2019 3:53 Results for this AM MENTAL HEALTH CASE MANAGER procedure are i n the results section. BASIC METABOLIC PANEL Routine 12/26/2019 3:53 Re sults for this (7) AM MENTAL HEALTH CASE MANAGER procedure are i n the results section. ECG 12-LEAD Routine 12/25/2019 11:45 Results for this PM MENTAL HEALTH CASE MANAGER procedure are i n the results section. POCT-GLUCOSE METER Routine 12/25/2019 10:03 Resul ts for this PM MENTAL HEALTH CASE MANAGER procedure are i n the results section. SARS-COV2/RT-PCR Routine 12/25/2019 4:46 Results for this ([facility] & REF LABS) PM MENTAL HEALTH CASE MANAGER procedure are in the results section. POCT-GLUCOSE METER Routine 12/25/2019 3:53 Resul ts for this PM MENTAL HEALTH CASE MANAGER procedure are i n the results section. POCT-GLUCOSE METER Routine 12/25/2019 10:53 Resul ts for this AM MENTAL HEALTH CASE MANAGER procedure are i n the results section. POCT-GLUCOSE METER Routine 12/25/2019 7:13 Resul ts for this AM MENTAL HEALTH CASE MANAGER procedure are i n the results section. CBC (HEMOGRAM ONLY) Routine 12/25/2019 5:31 Resu lts for this AM MENTAL HEALTH CASE MANAGER procedure are i n the results section. BASIC METABOLIC PANEL Routine 12/25/2019 5:31 Re sults for this (7) AM MENTAL HEALTH CASE MANAGER procedure are i n the results section. POCT-GLUCOSE METER Routine 12/25/2019 12:30 Resul ts for this AM MENTAL HEALTH CASE MANAGER procedure are i n the results section. POCT-GLUCOSE METER Routine 12/24/2019 5:30 Resul ts for this PM MENTAL HEALTH CASE MANAGER procedure are i n the results section. POCT-GLUCOSE METER Routine 12/24/2019 4:37 Resul ts for this PM MENTAL HEALTH CASE MANAGER procedure are i n the results section. POCT-GLUCOSE METER Routine 12/24/2019 1:49 Resul ts for this PM MENTAL HEALTH CASE MANAGER procedure are i n the results section. POCT-ACT Routine 12/24/2019 12:30 Results for this PM MENTAL HEALTH CASE MANAGER procedure are i n the results section. POCT-ACT Routine 12/24/2019 11:38 Results for this AM MENTAL HEALTH CASE MANAGER procedure are i n the results section. POCT-ACT Routine 12/24/2019 11:09 Results for this AM MENTAL HEALTH CASE MANAGER procedure are i n the results section. POCT-ACT Routine 12/24/2019 10:36 Results for this AM MENTAL HEALTH CASE MANAGER procedure are i n the results section. POCT-ACT Routine 12/24/2019 10:07 Results for this AM MENTAL HEALTH CASE MANAGER procedure are i n the results section. L CATH & PCI 12/24/2019 9:10 Coronary artery AM MENTAL HEALTH CASE MANAGER disease with angina pectoris, unspecified vessel or lesion type, unspecified whether diomede or transplanted heart (HCC) POCT-GLUCOSE METER Routine 12/24/2019 7:12 Resul ts for this AM MENTAL HEALTH CASE MANAGER procedure are i n the results section. PHOSPHORUS Routine 12/24/2019 6:07 Results for this AM MENTAL HEALTH CASE MANAGER procedure are i n the results section. MAGNESIUM Routine 12/24/2019 6:07 Results for this AM MENTAL HEALTH CASE MANAGER procedure are i n the results section. BASIC METABOLIC PANEL Routine 12/24/2019 6:07 Re sults for this (7) AM MENTAL HEALTH CASE MANAGER procedure are i n the results section. POCT-GLUCOSE METER Routine 12/23/2019 5:30 Resul ts for this PM MENTAL HEALTH CASE MANAGER procedure are i n the results section. VASCULAR DIAGRAM 12/23/2019 Results for this -SCAN procedure are i n the results section. after 12/27/2018 Results POC-Glucose meter (12/27/2019 11:32 AM MENTAL HEALTH CASE MANAGER)Only the most recent of13 results within the time period is included. POC-Glucose Meter 135 (H) 70 - 110 [facility] Comment: mg/dL [facility] : TESTED AT [address] CENTER : Workers' Compensation Magistrate/Machinist 2Nd Shift ID = [id number] for NICHELLE MCDOWELL Specimen Blood Performing Organization Address City/State/[place] [address] CENTER CBC (Hemogram only) (12/27/2019 5:25 AM MENTAL HEALTH CASE MANAGER)Only the most recent of2 results within the time period is included. Pathologist Sig nature WBC 18.5 (H) 3.5 - 10.5 K/L [facility] RBC 3.00 (L) 3.93 - 5.22 M/L [facility] Hemoglobin 9.6 (L) 11.2 - 15.7 GM/DL [facility] Hematocrit 28.6 (L) 34.1 - 44.9 % [facility] MCV 95.3 (H) 79.4 - 94.8 fL [facility] MCH 32.0 25.6 - 32.2 pg [facility] MCHC 33.6 32.2 - 35.5 GM/DL [facility] RDW 14.2 11.7 - 14.4 % [facility] Platelets 276 150 - 450 K/CU MM [facility] MPV 10.5 9.4 - 12.3 fL [facility] nRBC 0 0 - 0 /100 WBC [facility] Specimen Blood - Entire right upper arm (body str ucture) Performing Organization Address City/[facility]/Zipcode Phone Number [facility] [address] [place] [address] CENTER Basic metabolic panel (12/27/2019 5:25 AM MENTAL HEALTH CASE MANAGER)Only the most recent of4 results within the time period is included. Sodium 136 136 - 145 meq/L [facility] Potassium 4.3 3.5 - 5.1 meq/L [facility] Chloride 103 98 - 107 meq/L [facility] CO2 23 22 - 29 meq/L [facility] BUN 14 7 - 21 mg/dL [facility] Creatinine 0.85 0.57 - 1.25 [facility] mg/dL [facility] Glucose 130 (H) 70 - 105 mg/dL [facility] Calcium 9.3 8.4 - 10.2 [facility] mg/dL [facility] EGFR 64Comment: ESTIMATED mL/min/1.73 sq [facility] GFR IS NOT [facility] ACCURATE [facility] CREATININE CLEARANCE IN PREDICTING GLOMERULAR FILTRATION RATE. ESTIMATED GFR IS NOT APPLICABLE FOR DIALYSIS PATIENTS. Specimen Blood - Entire right upper arm (body str ucture) Narrative Performed At Workers' Compensation Magistrate ID - TERESA M [facility] Performing Organization Address City/[facility]/Zipcode Phone Number [facility] [address] [place] [phone] [facility] POC ACTIVATED CLOTTING TIME (12/26/2019 2:38 PM MENTAL HEALTH CASE MANAGER)Only the most recent of11 resultswithin the time period is included. Activated Clotting [address] [facility] Comment: [facility] : 74-137 seconds, Baseline CENTER : TESTED AT [address], [id number] : Workers' Compensation Magistrate/Machinist 2Nd Shift ID = [id number] for CALVIN SAUCEDO LDA Specimen Blood Performing Organization Address City/State/Zipcode Phone Number [address] [address] [facility] Manual Differential (12/26/2019 3:53 AM MENTAL HEALTH CASE MANAGER) % Neutros 71 % [facility] % Lymphs 19 % [facility] % Monos 1 % [facility] % Eos 2 % [facility] % Baso 5 % [facility] % Metamyelo 1 (H) 0 - 0 % [facility] # Neutros 15.19 (H) 1.56 - 6.13 [facility] # Lymphs 4.07 (H) 1.18 - 3.74 [facility] # Monos 0.21 (L) 0.24 - 0.36 [facility] # Eos 0.43 (H) 0.04 - 0.36 [facility] # Baso 1.07 (H) 0.01 - 0.08 [facility] # Metamyelo 0.21 (H) 0.00 - 0.00 [facility] Total Counted 100 [facility] nRBC (manual) 1 (H) 0 - 0 /100 WBC [facility] RBC Morphology Normal [facility] Large Platelet Present [facility] Hypersegmented Present [facility] Artifact Present [facility] Platelet Conc Adequate [facility] Specimen Blood Narrative Performed At Workers' Compensation Magistrate ID - Shy [facility] User comments: Slide comments: Performing Organization Address City/[facility]/Zipcode Phone Number [address] [address] CENTER CBC with platelet count + automated diff (12/26/2019 3:53 AM MENTAL HEALTH CASE MANAGER) Pathologist Sig nature WBC 21.4 (H) 3.5 - 10.5 K/L [facility] RBC 3.25 (L) 3.93 - 5.22 M/L [facility] Hemoglobin 10.4 (L) 11.2 - 15.7 GM/DL [facility] Hematocrit 31.4 (L) 34.1 - 44.9 % [facility] MCV 96.6 (H) 79.4 - 94.8 fL [facility] MCH 32.0 25.6 - 32.2 pg [facility] MCHC 33.1 32.2 - 35.5 GM/DL [facility] RDW 14.1 11.7 - 14.4 % [facility] Platelets 281 150 - 450 K/CU MM [facility] MPV 10.7 9.4 - 12.3 fL [facility] nRBC 0 0 - 0 /100 WBC [facility] Specimen Blood Performing Organization Address City/[facility]/Zipcode Phone Number [facility] [address] [place] [address] CENTER Magnesium (12/26/2019 3:53 AM MENTAL HEALTH CASE MANAGER)Only the most recent of2 resultswithin the time period is included. Pathologist Sig nature Magnesium 2.0 1.6 - 2.6 mg/dL [facility] Specimen Blood Narrative Performed At Workers' Compensation Magistrate ID - ALEXANDERSIRI [facility] Performing Organization Address City/[facility]/Zipcode Phone Number [facility] [address] [place] [address] CENTER ECG 12 lead (12/25/2019 11:45 PM MENTAL HEALTH CASE MANAGER) Specimen Narrative Performed At Ventricular Rate 81 BPM GE MUSE Atrial Rate 81 BPM P-R Interval 188 ms QRS Duration 78 ms Q-T Interval 354 ms QTC Calculation(Bazett) 411 ms P [place] 35 degrees R [place] 2 degrees T [place] 23 degrees Normal sinus rhythm Possible Anterior infarct , age undeterm ined Abnormal ECG No previous ECGs available Confirmed by MD SANCHEZ JOSEPH P ([id number]) on 12/26/19 2:02:09 PM Procedure Note Interface, External Ris In - 12/26/2019 2:02 PM MENTAL HEALTH CASE MANAGER Ventricular Rate 81 BPM Atrial Rate 81 BPM P-R Interval 188 ms QRS Duration 78 ms Q-T Interval 354 ms QTC Calculation(Bazett) 411 ms P [place] 35 degrees R [place] 2 degrees T [place] 23 degrees Normal sinus rhythm Possible Anterior infarct , age undeterm ined Abnormal ECG No previous ECGs available Confirmed by MD SANCHEZ JOSEPH P ([id number]) on 12/26/2019 2:02:09 PM Performing Organization Address City/[facility] Phone Number JODIE MUSE SARS-CoV2/RT-PCR (Asymptomatic ONLY) (12/25/2019 4:46 PM MENTAL HEALTH CASE MANAGER) SARS-COV2/RT-PCR Negative Not Detected, [facility] Negative, [facility] external report CENTER for linked test SARS-COV-2 [facility] PERFORMING LAB [facility] Specimen Other - Nasopharyngeal wall structure (b feliberto structure) Narrative Performed At Negative result for this test determines that [facility] SARS-CoV-2 RNA was not present in the specimen above the Limit of Detection (LOD). However, Negative results do not preclude SARS-CoV-2 infection and should not be used as the sole basis for treatment or patient management decisions. Negative results must be combined with clinical observations, patient history, and epidemiological information. A false negative result may occur if a specimen is improperly collected, transported or handled. A false negative result should be considered if patient's recent exposures or clinical presentation indicate that COVID-19 (SARS-CoV-2) is likely and diagnostic tests for other causes of illness are negative. Re-testing should be considered in cases of suspected false negatives. The limit of detection for this assay is 100 copies/mL. This SARS CoV-2 test is a real-time RT-PCR test intended for the qualitative detection of nucleic acid from SARS-CoV-2 in a nasopharyngeal swab specimen collected from individuals suspected of COVID-19 by their healthcare provider. This test has not been Food and Drug Administration (FDA) cleared or approved. This is a modified version of an approved Emergency Use Authorization (EUA) and is in the process of review by the FDA. Once authorized by the FDA, the issued EUA will be effective until the declaration that circumstances exist justifying the authorization of the emergency use of in vitro diagnostic tests for detection and/or diagnosis of COVID-19 is terminated under Section 564(b)(2) of the Act or the EUA is revoked under Section 564(g) of the Act. Testing was performed using the [employer] SARS-CoV-2 assay. Fact Sheet for Healthcare Providers: https://www.molecular.navarro/akosua/OD_AMCZ-EmS-1 _HCP_Fact_Sheet_51-345856.pdf Fact Sheet for Healthcare Patients: https://www.molecular.navarro/akosua/OL_LLET-DxB-2 _Patient_Fact_Sheet_EN_51-967992U5.pdf Performing Laboratory: [address] [place] [address] Performing Organization Address City/[facility] [place] [address] CENTER Phosphorus (12/24/2019 6:07 AM MENTAL HEALTH CASE MANAGER) Pathologist Sig nature Phosphorus 4.0 2.3 - 4.7 mg/dL [facility] Specimen Blood Narrative Performed At Workers' Compensation Magistrate USMAN Jaramillo [facility] Performing Organization Address City/State/Zipcode Phone Number [facility] [address] [place] [address] CENTER VASCULAR DIAGRAM -SCAN (12/23/2019) Narrative Performed At This result has an attachment that is no t available. Ordered by an unspecified provider. after 12/27/2018 Insurance Payer Benefit Plan / Subscriber ID Effective Dates Phone Addre ss Type Group MEDICARE MEDICARE A B [id number] 2000-Presen Medicare t AETNA - MGD CARE AETNA PPO OPEN [id number] 2013-Present PPO [facility] NAP Advance Directives For more information, please contact: [phone] Code Status Date Activated Date Inactivated Comments Full Code 12/23/2019 5:06 PM 12/27/2019 7:04 PM This code status was determined by: Patient
--- OUTSIDE RECORDS SUMMARY | 2019-12-28 21:50 | XMS REPORT | Continuity of Care Document ---
:1935 Author Organization [facility] t Address [facility] [place] [address] Care Team Providers Name Role Phone Waqas Wright MD Attending Clinician [phone] Jaylyn Berrios MD Attending Clinician Frederick Bonilla MD Attending Clinician Malcolm Ozuna MD Attending Clinician WAQAS WRIGHT Attending Clinician Unavailable JAYLYN BERRIOS Admitting Clinician Unavailable Payers Payer Name Policy Type Policy Effective Date Expiration Date Sour ce Number MEDICAREMEDICARE A [id number] MARICARMEN Cardenas [id number] 2000- 00:00:00 - Medical PresentMedicare Center AETNA - MGD CAREAETNA [id number] 2013 MARICARMEN Duggan PPO OPEN [facility] 00:00:00 - Medical [id number] 2013-P Ce nter resentPPO Problems Condition Condition Condition Status Onset Resolution Last Treating Co mments Source Name Details Category Date Date Treatment Clinician Date CAD CAD Disease Active 2019-[address] (coronary (coronary 02-21livan s - artery artery 00:00: Medical disease) disease) 00 Center Allergies, Adverse Reactions, Alerts Allergy Allergy Status Severity Reaction(s) Onset Inactive Treating Comm ents Source Name Type Date Date Clinician Meperidi Propensi Active 2019-[address] ne (Pf) ty to 02-21 [facility] - adverse 00:00: Medical reaction 00 Center s Social History Social Habit Start Date Stop Date Quantity Comments Source Sex Assigned At [facility] Exposure to SARS-CoV-[address] [facility] - Medical (event) Center Medications Ordered Filled Start Stop Current Ordering Indication Dosage Frequency Signature Comments Components Source Medication Medication Date Date Medication? Clinician (SIG) Name Name aspirin 81 2019-02- Yes 81mg QD Take [address] [facility] [address] MG EC 02-26 tablet (81 [facility] - tablet 00:00: 23:59 mg total) Medic al 00 :00 by mouth Center daily. clopidogreL 2019-02- Yes 75mg QD Take [address] [facility] [address] (PLAVIX) 75 02-26- tablet (75 L ukes - mg tablet 00:00: 23:59 mg total) Me dical 00 :00 by mouth Center daily. tiZANidine 2019-02 Yes 4mg QD Take [address] (ZANAFLEX) -21 by mouth [facility] - 4 MG tablet 17:04: daily. [facility] 55 [place] torsemide 2019-02 Yes 20mg QD Take [address] (DEMADEX) -21 by mouth [facility] - 20 MG 17:04: daily. Medical tablet 55 [place] tolterodine 2019-02 Yes 1mg Q.5D Take [address] (DETROL) 1 1-21 by mouth 2 Dre es - MG tablet 17:04: (two) Medical 55 times Center daily. tolterodine 2019-02 Yes 4mg QD Take [address] (DETROL LA) -21 by mouth Luke s - 4 MG 24 hr 17:04: daily. Medic al capsule 55 [place] levothyroxi 2019-02 Yes 10ug Take [address] ne 1-21 mcg by [facility]ukes - (SYNTHROID, 17:04: mouth Medic al LEVOTHROID) 55 Every Center 100 MCG morning on tablet an empty stomach. vit 2019-02 Yes QD Take by [facility] C/E/Zn/kamaljit 1-21 mouth [facility] - r/lutein/ze 17:04: daily. [facility] axan 55 Center (PRESERVISI ON AREDS-2 ORAL) cyanocobala 2019-02 Yes 1000ug QD Take 1,[address] min, 1-21 mcg by [facility]ukes - vitamin 17:04: mouth Medical B-12, 55 daily. Sach[place] (vitamin B-12) 1000 MCG tablet potassium 2019-02 Yes 10meq QD Take [address] chloride SA 02-25 mEq by Ronald - (K-DUR,KLOR 17:04: mouth Medic al -CON) 10 55 daily. [place] MEQ tablet simvastatin 2019-02- No 20mg QD Take [address] (ZOCOR) 20 02-25 by mouth Luke s - MG tablet 13:48: 00:00 nightly. Med ical 48 :00 [place] amLODIPine- 2019-02- No 1{capsu QD Take [address] benazepril 02-25 le} capsule by Maria Teresa stoll - (LOTREL 13:48: 00:00 mouth Medical 5-10) 5-10 48 :00 daily. Sach[place] mg per capsule metFORMIN 2019-02- No 500mg Take [address] (GLUCOPHAGE 02-25 mg by Ronald - ) 500 MG 13:48: 00:00 mouth 2 Medic al tablet 48 :00 (two) Center times daily with breakfast and dinner. atorvastati 2019-02- Yes 40mg QD Take [address] n (LIPITOR) 02-25 tablets Luke s - 10 MG 00:00: 23:59 (40 mg Medical tablet 00 :00 total) by Center mouth nightly. metoprolol 2019-02- Yes 12.5mg Q.5D Take 0.[address] tartrate 02-25 tablets [facility]ukes - (LOPRESSOR) 00:00: 23:59 (12.5 mg M edical 25 MG 00 :00 total) by Center tablet mouth 2 (two) times daily. nitroglycer 2019-02- Yes Put [address] in 02-25 under Lukes - (NITROSTAT) 00:00: 23:59 tongue Med ical 0.4 MG SL 00 :00 every 5min Cent er tablet as needed for chest pain.No more than 3 doses in 15min.Call 911 if pain unrelieved 5min after 1st dose. docusate 2019-02- Yes 100mg Q.5D Take 1 [facility] t sodium 02-25 capsule [facility]ukes - (COLACE) 00:00: 23:59 (100 mg Medic al 100 MG 00 :00 total) by Center capsule mouth 2 (two) times daily for 10 days. Vital Signs Vital Name Observation Time Observation Value Comments Source Systolic blood 2019-12-27 15:30:00 147 mm[Hg] [facility] Diastolic blood 2019-12-27 15:30:00 65 mm[Hg] [facility] Heart rate 2019-12-27 15:30:00 94 /min [facility] Body temperature 2019-12-27 15:30:00 36.28 Lorena [facility] Respiratory rate 2019-12-27 15:30:00 18 /min [facility] Oxygen saturation in 2019-12-27 15:30:00 98 /min [facility] Arterial blood by Medical Ce nter Pulse oximetry Body weight 2019-12-26 04:00:00 64.4 kg [facility] BMI 2019-12-26 04:00:00 25.97 kg/m2 [facility] Body height 2019-12-23 17:00:00 157.5 cm [facility] Procedures Procedure Date / Time Performed Performing Clinician [facility] e POCT-GLUCOSE METER 2019-12-27 11:[facility] 2019-12-27 07:32:00 Chad [facility] BASIC METABOLIC PANEL 2019-12-27 05:25:00 Juanjo Ashford [facility] ([address] [place] [address] CBC (HEMOGRAM ONLY) 2019-12-27 05:25:00 Juanjo Ashford [facility] POCT-GLUCOSE METER 2019-12-26 20:49:00 Chad [facility] POCT-ACT 2019-12-26 14:38:[facility] 2019-12-26 13:51:00 Chad [facility] POCT-ACT 2019-12-26 09:01:[facility] 2019-12-26 08:50:00 [facility] 2019-12-26 08:10:00 Chad [facility] POCT-ACT 2019-12-26 07:57:00 Chad [facility] BASIC METABOLIC PANEL 2019-12-26 03:53:[address] [facility] - (7) [facility] MAGNESIUM 2019-12-26 03:53:[address] [facility] CBC W/PLT COUNT & AUTO 2019-12-26 03:53:00 Radha Dean [facility] - DIFFERENTIAL [facility] (CELLAVISION MANUAL 2019-12-26 03:53:00 Radha Dean [facility] - DIFF) [facility] ECG 12-LEAD 2019-12-25 23:45:11 Unknown, Hl7 Doctor [facility] POCT-GLUCOSE METER 2019-12-25 22:03:00 Chad [facility] SARS-COV2/RT-PCR ([facility] & 2019-12-25 16:46:00 Juanjo [facility]ford [facility] PO[facility]SE METER 2019-12-25 15:53:00 Agustina [facility] POCT-GLUCOSE METER 2019-12-25 10:53:00 Agustina, [facility] POCT-GLUCOSE METER 2019-12-25 07:13:00 Agustina, [facility] BASIC METABOLIC PANEL 2019-12-25 05:31:00 Nga Ozuna [facility] CBC (HEMOGRAM ONLY) 2019-12-25 05:31:00 Nga Ozuna [facility] POCT-GLUCOSE METER 2019-12-25 00:30:00 Agustina, [facility] POCT-GLUCOSE METER 2019-12-24 17:30:00 Agustina, [facility] POCT-GLUCOSE METER 2019-12-24 16:37:00 Agustina, [facility] POCT-GLUCOSE METER 2019-12-24 13:49:00 Agustina, [facility] POCT-ACT 2019-12-24 12:30:00 Agustina, [facility] 2019-12-24 11:38:00 Agustina, [facility] POCT-ACT 2019-12-24 11:09:00 Agustina, [facility] POCT-ACT 2019-12-24 10:36:00 Agustina, [facility] POCT-ACT 2019-12-24 10:07:00 Agustina, [facility] L CATH & PCI 2019-12-24 09:10:00 Nga Ozuna [facility] POCT-GLUCOSE METER 2019-12-24 07:12:00 Agustina, [facility] BASIC METABOLIC PANEL 2019-12-24 06:07:00 Agustina, [facility] ([address] [place] [address] MAGNESIUM 2019-12-24 06:07:00 Agustina, [facility] PHOSPHORUS 2019-12-24 06:07:00 Agustina, [facility] POCT-GLUCOSE METER 2019-12-23 17:30:00 Lou Wright [facility] VASCULAR DIAGRAM -SCAN 2019-12-23 00:00:00 Provider, Timothy [facility] Plan of Care Planned Activity Planned Date Details Comments Source Future Scheduled 2019-10-07 INFLUENZA VACCINE (#1) [facility] Test 00:00:00 [code = INFLUENZA Medical Ce nter VACCINE (#1)] Future Scheduled 2001-11-[address] [facility] - Test 00:00:00 WELLNESS (YEAR 2 or Medical Center FIRST YEAR if no IPPE) [code = MEDICARE ANNUAL WELLNESS (YEAR 2 or FIRST YEAR if no IPPE)] Future Scheduled 2000-12-01 PNEUMOCOCCAL 65+ YRS [facility] (1 of 1 - Medical Center [id number] PCV13) [code = PNEUMOCOCCAL 65+ YRS (1 of 1 - [id number] PCV13)] Results Test Description Test Time Test Comments Results Result Comments Source POC-Glucose meter 2019-12-27 11:44:00 Test Item Value Reference Range Interpretation Comme [facility] POC-Glucose Meter (test code = 135 mg/dL 70-110 H : TESTED AT [facility] [address]) [place], [address]: Wire Drawing Machine Tender/Techni guadalupe ID = [id number] for NIHCELLE MCDOWELL Lab Interpretation (test code = Abnormal 96203-6) [facility] [id number] 11:44:00 Test Item Value Reference Range Interpretation Comments POC-GLUCOSE METER 135 mg/dL 70-110 H : TESTED A T [facility] [address] (BEAKER) ([place], [address]: code = 1538) Wire Drawing Machine Tender/Techni guadalupe ID = [id number] for AMINATA MAJANO IN POCT-GLUCOSE [id number] 07:43:00 Test Item Value Reference Range Interpretation Comments POC-GLUCOSE METER 113 mg/dL 70-110 H : TESTED A T [facility] [address] (BEAKER) (test [address] [facility] [place], [address]: code = 1538) Wire Drawing Machine Tender/Techni guadalupe ID = [id number] for AMINATA MAJANO IN Basic metabolic [id number] 05:55:00 Test Item Value Reference Range Interpretation Comments Sodium (test code = 136 meq/L 782-656 2765-2) Potassium (test code = 4.3 meq/L 3.5-5.1 2823-3) Chloride (test code = 103 meq/L 98-107 2075-0) CO2 (test code = 23 meq/L 22-29 2028-9) BUN (test code = 14 mg/dL 7- 3094-0) Creatinine (test code 0.85 mg/dL 0.57-1.25 = 2160-0) Glucose (test code = 130 mg/dL 70-105 H 2345-7) Calcium (test code = 9.3 mg/dL 8.4-10.2 95298-5) EGFR (test code = 64 mL/min/1.73 [place] [address]-5) NOT ACCURATE CREATININE CLEARANCE IN PREDICTING GLOMERULAR FILTRATION RATE . ESTIMATED GFR I S NOT APPLICABLE FOR DIALYSIS PATIENTS. ZARA (test code = ZARA) Wire Drawing Machine Tender USMAN Jaramillo Lab Interpretation Abnormal (test code = 66885-0) [facility] METABOLIC [id number] 05:55:00 Test Item Value Reference Range Interpretation Comments SODIUM (BEAKER) 136 meq/L 136-145 (test code = 381) POTASSIUM (BEAKER) 4.3 meq/L 3.5-5.1 (test code = 379) CHLORIDE (BEAKER) 103 meq/L 98-107 (test code = 382) CO2 (BEAKER) (test 23 meq/L - code = 355) BLOOD UREA NITROGEN 14 mg/dL - (BEAKER) (test code = 354) CREATININE (BEAKER) 0.85 mg/dL 0.57-1.25 (test code = 358) GLUCOSE RANDOM 130 mg/dL 70-105 H (BEAKER) (test code = 652) CALCIUM (BEAKER) 9.3 mg/dL 8.4-10.2 (test code = 697) EGFR (BEAKER) (test 64 mL/min/1.73 ESTIMA JANETTE GFR IS code = 1092) sq m NOT ACCURATE CREATININE CLEARANCE IN PREDICTING GLOMERULAR FILTRATION RATE . ESTIMATED GFR I S NOT APPLICABLE FOR DIALYSIS PATIEN TS. Wire Drawing Machine Tender USMAN - TERESA [facility] (Hemogram only)2019-12-27 05:38:00 Test Item Value Reference Range Interpretation Comments WBC (test code = 6690-2) 18.5 3.5- 10.5 K/L H RBC (test code = 789-8) 3.00 3.93- 5.22 M/L L MCHC (test code = 786-4) 33.6 32.2- 35.5 GM/DL L Hematocrit (test code = 4544-3) 28.6 % 34.1-44.9 L MCV (test code = 787-2) 95.3 fL 79.4-94.8 H MCH (test code = 785-6) 32.0 pg 25.6-32.2 RDW (test code = 788-0) 14.2 % 11.7-14.4 Platelets (test code = 777-3) 276 150- 450 K/CU MM MPV (test code = 93234-0) 10.5 fL 9.4-12.3 nRBC (test code = 413) 0 0- 0 /100 WBC Lab Interpretation (test code = Abnormal 12829-1) [facility] (HEMOGRAM ONLY)2019-12-27 05:38:00 Test Item Value Reference Range Interpretation Comments WHITE BLOOD CELL COUNT (BEAKER) 18.5 K/ L 3.5-10.5 H (test code = 775) RED BLOOD CELL COUNT (BEAKER) 3.00 M/ L 3.93-5.22 L (test code = 761) HEMOGLOBIN (BEAKER) (test code = 9.6 GM/DL 11.2-15.7 L 410) HEMATOCRIT (BEAKER) (test code = 28.6 % 34.1-44.9 L 411) MEAN CORPUSCULAR VOLUME (BEAKER) 95.3 fL 79.4-94.8 H (test code = 753) MEAN CORPUSCULAR HEMOGLOBIN 32.0 pg 25.6-32.2 (BEAKER) (test code = 751) MEAN CORPUSCULAR HEMOGLOBIN CONC 33.6 GM/DL 32.2-35.5 (BEAKER) (test code = 752) RED CELL DISTRIBUTION WIDTH 14.2 % 11.7-14.4 (BEAKER) (test code = 412) PLATELET COUNT (BEAKER) (test 276 K/CU MM 150-450 code = 756) MEAN PLATELET VOLUME (BEAKER) 10.5 fL 9.4-12.3 (test code = 754) NUCLEATED RED BLOOD CELLS 0 /100 WBC 0-0 (BEAKER) (test code = 413) POCT-GLUCOSE [id number] 21:02:00 Test Item Value Reference Range Interpretation Comments POC-GLUCOSE METER 206 mg/dL 70-110 H : Notified RN/MD: (ZOYA) (test code = TESTED AT [place] [address]) [facility], [address]: Wire Drawing Machine Tender/Techni guadalupe ID = [id number] for ALICE FAM POC ACTIVATED CLOTTING [id number] 14:59:00 Test Item Value Reference Range Interpretation Comments Activated Clotting Time 147 sec : 74 -137 seconds, (test code = 441) Baseline: TESTED AT [address], [address]: Wire Drawing Machine Tender/Techni guadalupe ID = [id number] for AGA COLLAZO, MIK [facility][id number] 14:59:00 Test Item Value Reference Range Interpretation Comments ACTIVATED CLOTTING TIME 147 sec : 74 -137 seconds, (TREYMAI) (test code = Baseli ne: TESTED AT 441) [address], [address]: Wire Drawing Machine Tender/Techni guadalupe ID = [id number] for MAXIMILIANO SOLOMONALEZ, MIK [id number] 14:12:00 Test Item Value Reference Range Interpretation Comments ACTIVATED CLOTTING TIME 158 sec : 74 -137 seconds, (ZOYA) (test code = Baseli ne: TESTED AT 441) [address], [address]: Wire Drawing Machine Tender/Techni guadalupe ID = [id number] for MAXIMILIANO NZALEZ, MIK ECG 12 [id number] 14:02:10Interface, External Ris In - 12/26/2019 2:02 PM CSTVentricular Rate 81 BPMAtrial Rate 81 BPMP-R Interval 188 msQRS Duration 78 msQ-T Interval 354 msQTC Calculation(Bazett) 411 msP [place] 35 degreesR [place] 2 degreesT [place] 23 degreesNormal sinus rhythmPossible Anterior infarct , age undeterminedAbnormal ECGNo previous ECGs availableConfirmed by MD LAURA, RICK Weinberg ([id number]) on 12/26/2019 2:02:09 [facility] -[id number] 11:20:13Ordered by an unspecified provider.[facility][id number] 09:18:00 Test Item Value Reference Range Interpretation Comments ACTIVATED CLOTTING TIME 362 sec : 74 -137 seconds, (BEAKER) (test code = Baseli ne: TESTED AT 441) [facility] [address] [facility], [address]: Wire Drawing Machine Tender/Techni guadalupe ID = [id number] for CO NDE, KASSY [id number] 09:18:00 Test Item Value Reference Range Interpretation Comments ACTIVATED CLOTTING TIME 246 sec : 74 -137 seconds, (BEAKER) (test code = Baseli ne: TESTED AT 441) [facility] [address] [facility], [address]: Wire Drawing Machine Tender/Techni guadalupe ID = [id number] for CO NDE, KASSY SARS-CoV2/RT-PCR (Asymptomatic ONLY)2019-12-26 08:30:00 Test Item Value Reference Range Interpretation Comments SARS-COV2/RT-PCR Negative Not Detected, (test code = Negative, See 97572-0) external report for linked test SARS-COV-2 [facility] PERFORMING LAB (test code = 72942-9) ZARA (test code = Negative result for this ZARA) test determines that SARS-CoV-2 RNA was not present in the [...] the Act. Testing was performed using the [employer] SARS-CoV-2 assay. Fact Sheet for Healthcare Providers:https://www.[employer]/akosua/RT_SA NS-RgE-7_VEN_Cdnl_Bgfmk_ 51-645371.pdf Fact Sheet for Healthcare Patients:https://www.Walk-in Appointment Scheduler/akosua/RT_SAR B-EvU-4_Zdwtcnv_Uqnc_Uci et_EN_51-906449M8.pdf Performing Laboratory:[facility] [place], [place] [address], [place] [address] [place], [place] [address]ARS-COV2/RT-PCR ([facility] & REF LABS)2019-12-26 08:30:00 Test Item Value Reference Range Interpretation Comments SARS-COV2/RT-PCR (test Negative Not Detected, Negative, code = 2670521) See external report for linked test SARS-COV-2 PERFORMING LAB [facility] (test code = 0018625) Negative result for this test determines that SARS-CoV-2 RNA was not present in the specimen above the Limit of Detection (LOD). However, Negative results do not preclude SARS-CoV-2 infection and should not be used as the sole basis for treatment or patient management decisions. Negative results mustbe combined with clinical observations, patient history, and epidemiological information. A false negative result may occur if a specimen is improperly collected, transported or handled. A false negative result should be considered if patient's recent exposures or clinical presentation indicate that COVID-19 (SARS-CoV-2) is likely and diagnostic tests for other causes of illness are negative. Re-testing should be considered in cases of suspected false negatives.The limit of detection for this assay is 100 copies/mL.This SARS CoV-2 test is a real-time RT-PCR test intended for the qualitative detection of nucleic acid from SARS-CoV-2 in a nasopharyngeal swab specimen collected from individuals susp ected of COVID-19 by their healthcare provider.This test has not been Food and Drug [...] is revoked under Section 564(g) of the Act.Testing was performed using the [employer]k SARS-CoV-2 assay.Fact Sheet for Healthcare Providers:https://www.[employer].virk/akosua/ IX_DTJW-KrU-3_WAO_Ryjk_Wxlai_45-408069.pdfFact Sheet for Healthcare Patients:https://www.[employer] tanmay/akosua/OY_KTAX-LwI-2_Brjfzwj_Aykb_Lnbjf_SF_15-801151F6.pdfPerforming Laboratory:[address] [address] [id number] 08:27:00 Test Item Value Reference Range Interpretation Comments ACTIVATED CLOTTING TIME 312 sec : 74 -137 seconds, (BEAKER) (test code = Baseli ne: TESTED AT 441) [place] [address]: Wire Drawing Machine Tender/Techni guadalupe ID = [id number] for CO NDE, KASSY [id number] 08:26:00 Test Item Value Reference Range Interpretation Comments ACTIVATED CLOTTING TIME 235 sec : 74 -137 seconds, (BEAKER) (test code = Baseli ne: TESTED AT 441) [place] [address]: Wire Drawing Machine Tender/Techni guadalupe ID = [id number] for CO NDE, KASSY CBC with platelet count + automated [id number] 05:54:00 Test Item Value Reference Range Interpretation Comments WBC (test code = 6690-2) 21.4 3.5- 10.5 K/L H RBC (test code = 789-8) 3.25 3.93- 5.22 M/L L MCHC (test code = 786-4) 33.1 32.2- 35.5 GM/DL L Hematocrit (test code = 4544-3) 31.4 % 34.1-44.9 L MCV (test code = 787-2) 96.6 fL 79.4-94.8 H MCH (test code = 785-6) 32.0 pg 25.6-32.2 RDW (test code = 788-0) 14.1 % 11.7-14.4 Platelets (test code = 777-3) 281 150- 450 K/CU MM MPV (test code = 99832-2) 10.7 fL 9.4-12.3 nRBC (test code = 413) 0 0- 0 /100 WBC Lab Interpretation (test code = Abnormal 20823-0) [facility] Center[facility]ual [id number] 05:54:00 Test Item Value Reference Range Interpretation Comments % Neutros (test code = 71 % 2816) % Lymphs (test code = 19 % 2817) % Monos (test code = 2818) 1 % % Eos (test code = 2819) 2 % % Baso (test code = 2820) 5 % % Metamyelo (test code = 1 % 0-0 H 2821) # Neutros (test code = 15.19 K/ul 1.56-6.13 H 2830) # Lymphs (test code = 4.07 K/ul 1.18-3.74 H 2831) # Monos (test code = 2832) 0.21 K/uL 0.24-0.36 L # Eos (test code = 2834) 0.43 K/uL 0.04-0.36 H # Baso (test code = 2835) 1.07 K/uL 0.01-0.08 H # Metamyelo (test code = 0.21 K/uL 0-0 H 2836) Total Counted (test code = 100 1351) nRBC (manual) (test code = 1 0- 0 /100 WBC H 1353) RBC Morphology (test code Normal = 762) Large Platelet (test code Present = 2156) Hypersegmented Neutrophils Present (test code = 3445) Artifact (test code = Present 3432) Platelet Conc (test code = Adequate 3438) ZARA (test code = ZARA) Wire Drawing Machine Tender ID - AstoniUser comments: Slide comments: Lab Interpretation (test Abnormal code = 07415-2) [facility] W/PLT COUNT & AUTO [id number] 05:54:00 Test Item Value Reference Range Interpretation Comments WHITE BLOOD CELL COUNT (BEAKER) 21.4 K/ L 3.5-10.5 H (test code = 775) RED BLOOD CELL COUNT (BEAKER) 3.25 M/ L 3.93-5.22 L (test code = 761) HEMOGLOBIN (BEAKER) (test code = 10.4 GM/DL 11.2-15.7 L 410) HEMATOCRIT (BEAKER) (test code = 31.4 % 34.1-44.9 L 411) MEAN CORPUSCULAR VOLUME (BEAKER) 96.6 fL 79.4-94.8 H (test code = 753) MEAN CORPUSCULAR HEMOGLOBIN 32.0 pg 25.6-32.2 (BEAKER) (test code = 751) MEAN CORPUSCULAR HEMOGLOBIN CONC 33.1 GM/DL 32.2-35.5 (BEAKER) (test code = 752) RED CELL DISTRIBUTION WIDTH 14.1 % 11.7-14.4 (BEAKER) (test code = 412) PLATELET COUNT (BEAKER) (test 281 K/CU MM 150-450 code = 756) MEAN PLATELET VOLUME (BEAKER) 10.7 fL 9.4-12.3 (test code = 754) NUCLEATED RED BLOOD CELLS 0 /100 WBC 0-0 (BEAKER) (test code = 413) (CELLAVISION MANUAL DIFF)2019-12-26 05:54:00 Test Item Value Reference Range Interpretation Comments NEUTROPHILS - REL 71 % (CELLAVISION)(BEAKER) (test code = 2816) LYMPHOCYTES - REL 19 % (CELLAVISION)(BEAKER) (test code = 2817) MONOCYTES - REL 1 % (CELLAVISION)(BEAKER) (test code = 2818) EOSINOPHILS - REL 2 % (CELLAVISION)(BEAKER) (test code = 2819) BASOPHILS - REL 5 % (CELLAVISION)(BEAKER) (test code = 2820) METAMYELOCYTES - REL 1 % 0-0 H (CELLAVISION)(BEAKER) (test code = 2821) NEUTROPHILS - ABS 15.19 K/ul 1.56-6.13 H (CELLAVISION)(BEAKER) (test code = 2830) LYMPHOCYTES - ABS 4.07 K/ul 1.18-3.74 H (CELLAVISION)(BEAKER) (test code = 2831) MONOCYTES - ABS 0.21 K/uL 0.24-0.36 L (CELLAVISION)(BEAKER) (test code = 2832) EOSINOPHILS - ABS 0.43 K/uL 0.04-0.36 H (CELLAVISION)(BEAKER) (test code = 2834) BASOPHILS - ABS 1.07 K/uL 0.01-0.08 H (CELLAVISION)(BEAKER) (test code = 2835) METAMYELOCYTES - ABS 0.21 K/uL 0.00-0.00 H (CELLAVISION)(BEAKER) (test code = 2836) TOTAL COUNTED (BEAKER) (test code 100 = 1351) MANUAL NRBC PER 100 CELLS (BEAKER) 1 /100 WBC 0-0 H (test code = 1353) RBC MORPHOLOGY (BEAKER) (test code Normal = 762) LARGE PLT(BEAKER) (test code = Present 2156) HYPERSEGMENTATION Present (CELLAVISION)(BEAKER) (test code = 3445) ARTIFACT (CELLAVISION)(BEAKER) Present (test code = 3432) PLATELET CONCENTRATION Adequate (CELLAVISION)(BEAKER) (test code = 3438) Wire Drawing Machine Tender ID - Blake comments: Slide comments:[id number] 04:52:00 Test Item Value Reference Range Interpretation Comments Magnesium (test code = 2.0 mg/dL 1.6-2.6 01185-2) ZARA (test code = ZARA) Wire Drawing Machine Tender ID - EDASI Lab Interpretation (test Normal code = 85765-0) [id number] 04:52:00 Test Item Value Reference Range Interpretation Comments SODIUM (BEAKER) 140 meq/L 136-145 (test code = 381) POTASSIUM (BEAKER) 4.4 meq/L 3.5-5.1 (test code = 379) CHLORIDE (BEAKER) 106 meq/L 98-107 (test code = 382) CO2 (BEAKER) (test 26 meq/L 22-29 code = 355) BLOOD UREA NITROGEN 16 mg/dL 7-21 (BEAKER) (test code = 354) CREATININE (BEAKER) 0.91 mg/dL 0.57-1.25 (test code = 358) GLUCOSE RANDOM 121 mg/dL 70-105 H (BEAKER) (test code = 652) CALCIUM (BEAKER) 9.4 mg/dL 8.4-10.2 (test code = 697) EGFR (BEAKER) (test 59 mL/min/1.73 ESTIMA JANETTE GFR IS code = 1092) sq m NOT ACCURATE CREATININE CLEARANCE IN PREDICTING GLOMERULAR FILTRATION RATE . ESTIMATED GFR I S NOT APPLICABLE FOR DIALYSIS PATIEN TS. Wire Drawing Machine Tender ID - [id number] 04:52:00 Test Item Value Reference Range Interpretation Comments MAGNESIUM (BEAKER) (test code = 2.0 mg/dL 1.6-2.6 627) Wire Drawing Machine Tender ID - EDASIPOCT-GLUCOSE [id number] 22:16:00 Test Item Value Reference Range Interpretation Comments POC-GLUCOSE METER 131 mg/dL 70-110 H : TESTED A T [facility] 6720 (BEAKER) (test code = [facility], 153) 84192: Wire Drawing Machine Tender/Techni guadalupe ID = [id number] for MARY ELLEN CRAIN, TEGAN POCT-GLUCOSE [id number] 16:05:00 Test Item Value Reference Range Interpretation Comments POC-GLUCOSE METER 133 mg/dL 70-110 H : TESTED A T [facility] 6720 (BEAKER) (test code = [facility], 1538) 15591: Wire Drawing Machine Tender/Techni guadalupe ID = [id number] for HE RNANDEZ, FRANCIS POCT-GLUCOSE [id number] 11:05:00 Test Item Value Reference Range Interpretation Comments POC-GLUCOSE METER 127 mg/dL 70-110 H : TESTED A T [facility] 6720 (BEAKER) (test code = [facility], 153) 02573: Wire Drawing Machine Tender/Techni guadalupe ID = [id number] for HE RNANDEZ, FRANCIS POCT-GLUCOSE [id number] 07:26:00 Test Item Value Reference Range Interpretation Comments POC-GLUCOSE METER 121 mg/dL 70-110 H : TESTED A T [facility] 6720 (BEAKER) (test code = [facility] [place], 1538) 14152: Wire Drawing Machine Tender/Techni guadalupe ID = [id number] for FRANCIS SIMMONS BASIC METABOLIC [id number] 06:38:00 Test Item Value Reference Range Interpretation Comments SODIUM (BEAKER) 136 meq/L 136-145 (test code = 381) POTASSIUM (BEAKER) 4.2 meq/L 3.5-5.1 (test code = 379) CHLORIDE (BEAKER) 104 meq/L 98-107 (test code = 382) CO2 (BEAKER) (test 24 meq/L 22-29 code = 355) BLOOD UREA NITROGEN 16 mg/dL 7-21 (BEAKER) (test code = 354) CREATININE (BEAKER) 0.84 mg/dL 0.57-1.25 (test code = 358) GLUCOSE RANDOM 127 mg/dL 70-105 H (BEAKER) (test code = 652) CALCIUM (BEAKER) 9.1 mg/dL 8.4-10.2 (test code = 697) EGFR (BEAKER) (test 65 mL/min/1.73 ESTIMA JANETTE GFR IS code = 1092) sq m NOT ACCURATE CREATININE CLEARANCE IN PREDICTING GLOMERULAR FILTRATION RATE . ESTIMATED GFR I S NOT APPLICABLE FOR DIALYSIS PATIEN TS. Wire Drawing Machine Tender ID - PIAYA [id number] (HEMOGRAM ONLY)2019-12-25 05:51:00 Test Item Value Reference Range Interpretation Comments WHITE BLOOD CELL COUNT (BEAKER) 19.9 K/ L 3.5-10.5 H (test code = 775) RED BLOOD CELL COUNT (BEAKER) 3.49 M/ L 3.93-5.22 L (test code = 761) HEMOGLOBIN (BEAKER) (test code = 10.9 GM/DL 11.2-15.7 L 410) HEMATOCRIT (BEAKER) (test code = 33.6 % 34.1-44.9 L 411) MEAN CORPUSCULAR VOLUME (BEAKER) 96.3 fL 79.4-94.8 H (test code = 753) MEAN CORPUSCULAR HEMOGLOBIN 31.2 pg 25.6-32.2 (BEAKER) (test code = 751) MEAN CORPUSCULAR HEMOGLOBIN CONC 32.4 GM/DL 32.2-35.5 (BEAKER) (test code = 752) RED CELL DISTRIBUTION WIDTH 14.3 % 11.7-14.4 (AKER) (test code = 412) PLATELET COUNT (AKER) (test 305 K/CU MM 150-450 code = 756) MEAN PLATELET VOLUME (BEAKER) 10.4 fL 9.4-12.3 (test code = 754) NUCLEATED RED BLOOD CELLS 0 /100 WBC 0-0 (AKER) (test code = 413) POCT-GLUCOSE [id number] 00:43:00 Test Item Value Reference Range Interpretation Comments POC-GLUCOSE METER 136 mg/dL 70-110 H : TESTED A T [facility] 6720 ([facility]) (test code = [facility], 153) 23179: Wire Drawing Machine Tender/Techni guadalupe ID = [id number] for AR BREANN, TEGAN POCT-GLUCOSE [id number] 17:42:00 Test Item Value Reference Range Interpretation Comments POC-GLUCOSE METER 122 mg/dL 70-110 H : TESTED A T [facility] 6720 ([facility]) (test code = [facility], 153) 62503: Wire Drawing Machine Tender/Techni guadalupe ID = [id number] for AC COS, AKYLEY POCT-GLUCOSE [id number] 16:49:00 Test Item Value Reference Range Interpretation Comments POC-GLUCOSE METER 117 mg/dL 70-110 H : TESTED A T [facility] 6720 ([facility]) (test code = [facility], 1538) 25133: Wire Drawing Machine Tender/Techni guadalupe ID = [id number] for BA TTAD, KELSI POCT-GLUCOSE [id number] 14:00:00 Test Item Value Reference Range Interpretation Comments POC-GLUCOSE METER 122 mg/dL 70-110 H : TESTED A T [facility] 6720 (AKER) (test code = [facility], 1538) 31455: Wire Drawing Machine Tender/Techni guadalupe ID = [id number] for CI SNEROS, SHARON [id number] 12:50:00 Test Item Value Reference Range Interpretation Comments ACTIVATED CLOTTING TIME 279 sec : 74 -137 seconds, (AKER) (test code = Baseli ne: TESTED AT 441) [facility] 6720 [facility], 770 30: Wire Drawing Machine Tender/Techni guadalupe ID = [id number] for TOBI ASHBY [id number] 11:55:00 Test Item Value Reference Range Interpretation Comments ACTIVATED CLOTTING TIME 285 sec : 74 -137 seconds, (BEAKER) (test code = Baseli ne: TESTED AT 441) [address], 770 [address]: Wire Drawing Machine Tender/Techni guadalupe ID = [id number] for TOBI ASHBY [id number] 11:27:00 Test Item Value Reference Range Interpretation Comments ACTIVATED CLOTTING TIME 318 sec : 74 -137 seconds, (BEAKER) (test code = Baseli ne: TESTED AT 441) [address], [address]: Wire Drawing Machine Tender/Techni guadalupe ID = [id number] for TOBI ASHBY [id number] 10:52:00 Test Item Value Reference Range Interpretation Comments ACTIVATED CLOTTING TIME 268 sec : 74 -137 seconds, (BEAKER) (test code = Baseli ne: TESTED AT 441) [address], [address]: Wire Drawing Machine Tender/Techni guadalupe ID = [id number] for TOBI ASHBY [id number] 10:27:00 Test Item Value Reference Range Interpretation Comments ACTIVATED CLOTTING TIME 263 sec : 74 -137 seconds, (BEAKER) (test code = Baseli ne: TESTED AT 441) [address], 770 30: Wire Drawing Machine Tender/Techni guadalupe ID = [id number] for TOBI ASHBY POCT-GLUCOSE [id number] 07:33:00 Test Item Value Reference Range Interpretation Comments POC-GLUCOSE METER 101 mg/dL 70-110 : TESTED A T [place] [address] (BEAKER) (test code = [facility], 1538) 35945: Wire Drawing Machine Tender/Techni guadalupe ID = [id number] for LATKrishna NALYSHA [id number] 07:27:00 Test Item Value Reference Range Interpretation Comments Phosphorus (test code = 4.0 mg/dL 2.3-4.7 2777-1) ZARA (test code = ZARA) Wire Drawing Machine Tender ID - TERESA M Lab Interpretation (test Normal code = 95015-1) [facility] [id number] 07:27:00 Test Item Value Reference Range Interpretation Comments SODIUM (BEAKER) 138 meq/L 136-145 (test code = 381) POTASSIUM (BEAKER) 4.5 meq/L 3.5-5.1 (test code = 379) CHLORIDE (BEAKER) 102 meq/L 98-107 (test code = 382) CO2 (BEAKER) (test 28 meq/L 22-29 code = 355) BLOOD UREA NITROGEN 23 mg/dL 7-21 H (BEAKER) (test code = 354) CREATININE (BEAKER) 1.11 mg/dL 0.57-1.25 (test code = 358) GLUCOSE RANDOM 109 mg/dL 70-105 H (BEAKER) (test code = 652) CALCIUM (BEAKER) 9.6 mg/dL 8.4-10.2 (test code = 697) EGFR (BEAKER) (test 47 mL/min/1.73 ESTIMA JANETTE GFR IS code = 1092) sq m NOT ACCURATE CREATININE CLEARANCE IN PREDICTING GLOMERULAR FILTRATION RATE . ESTIMATED GFR I S NOT APPLICABLE FOR DIALYSIS PATIEN TS. Wire Drawing Machine Tender ID - TERESA [id number] 07:27:00 Test Item Value Reference Range Interpretation Comments MAGNESIUM (BEAKER) (test code = 2.0 mg/dL 1.6-2.6 627) Wire Drawing Machine Tender ID - TERESA [id number] 07:27:00 Test Item Value Reference Range Interpretation Comments PHOSPHORUS (BEAKER) (test code = 4.0 mg/dL 2.3-4.7 604) Wire Drawing Machine Tender ID - TERESA MPOCT-GLUCOSE [id number] 17:44:00 Test Item Value Reference Range Interpretation Comments POC-GLUCOSE METER 130 mg/dL 70-110 H : TESTED A T [facility] 6720 (BEAKER) (test code = [facility] [place], 1538) [address]: Wire Drawing Machine Tender/Techni guadalupe ID = [id number] for ALYSHA DUMONT
[2019-12-28 23:00] LABS: Absolute Lymphocytes (CBC) 3.2 K/uL (0.7-4.9); Basophils % 1.5 % (0-1.3); Hematocrit 27.1 % (36.0-45.0); MPV 9.3 fL (7.6-11.3); RBC Red Blood Cell Count 2.88 M/uL (3.86-4.86)
[2019-12-28 23:01] LABS: Protime INR 1.1
[2019-12-28 23:17] LABS: Albumin 3.4 g/dL (3.4-5.0); Bilirubin Direct 0.1 mg/dL (0-0.2); Bilirubin Total 0.5 mg/dL (0.2-1.0); Magnesium 2.2 mg/dL (1.8-2.4); Protein, Total 7.2 g/dL (6.4-8.2); Troponin (Emerg Dept Use Only) 0.16 ng/mL (0.0-0.045)
[2019-12-29 00:11] LABS: Blood Morphology Comment NOTED (NOT SEEN); Platelet Estimate ADEQ; Polychromasia 1+
--- NOTE | 2019-12-29 00:59 | ER ---
Nurse's Notes [facility] Name: Monique German Age: 84 yrs Sex: Female : 1935 Arrival Date: 12/28/2019 Time: 22:03 Bed 20 Private MD: Diagnosis: Chest pain, unspecified Presentation: 12/27 21:50 Chief complaint: EMS states: complaint of chest pain started around 2049 H tonight rr5 aspirin 324 mg at home. she was released yesterday in [facility] for 3 cardiac stent. BP 167/83 mmHg rechecked 136/77. 21:50 Coronavirus screen: Client denies travel out of the [place] in the last 14 days. At this rr5 time, the client does not indicate any symptoms associated with coronavirus-19. Ebola Screen: Patient negative for fever greater than or equal to 101.5 degrees Fahrenheit, and additional compatible Ebola Virus Disease symptoms Patient denies exposure to infectious person. Patient denies travel to an Ebola-affected area in the 21 days before illness onset. Initial Sepsis Screen: Does the patient meet any 2 criteria? No. Patient's initial sepsis screen is negative. Does the patient have a suspected source of infection? No. Patient's initial sepsis screen is negative. Risk Assessment: Do you want to hurt yourself or someone else? Patient reports no desire to harm self or others. Onset of symptoms was December 28, 2019. 21:50 Method Of Arrival: EMS: Accident EMS rr5 21:50 Acuity: NBA 3 rr5 Historical: - Allergies: 22:07 Demerol; rr5 - PMHx: 22:07 Hyperlipidemia; Hypertension; Hypothyroidism; Pulmonary Embolism; ADD/ADHD; rr5 - PSHx: 22:07 Heart stents; Hysterectomy; Knee surgery; shoulder surgery; Tonsillectomy; rr5 - Immunization history:: Adult Immunizations up to date. - Social history:: Smoking status: unknown. Screenin:15 Abuse screen: Denies threats or abuse. Nutritional screening: No deficits noted. jb4 Tuberculosis screening: No symptoms or risk factors identified. Fall Risk None identified. Assessment: 22:15 General: Appears in no apparent distress. comfortable, Behavior is calm, cooperative, jb4 appropriate for age. Pain: Complains of pain in anterior aspect of left upper chest Pain does not radiate. Pain currently is 0 out of 10 on a pain scale. at worst was 6 out of 10 on a pain scale. Quality of pain is described as sharp, Pain began 30 min ago. Neuro: Level of Consciousness is awake, alert, obeys commands, Oriented to person, place, time, situation. Cardiovascular: Patient's skin is warm and dry. Respiratory: Airway is patent Respiratory effort is even, unlabored, Respiratory pattern is regular, symmetrical. GI: No signs and/or symptoms were reported involving the gastrointestinal system. : No signs and/or symptoms were reported regarding the genitourinary system. EENT: No signs and/or symptoms were reported regarding the EENT system. Derm: Skin is intact, Skin is pink, warm \T\ dry. Musculoskeletal: Circulation, motion, and sensation intact. Range of motion: intact in all extremities. 23:00 Reassessment: Patient appears in no apparent distress at this time. Patient and/or jb4 family updated on plan of care and expected duration. Pain level reassessed. Patient is alert, oriented x 3, equal unlabored respirations, skin warm/dry/pink. 12/28 00:00 Reassessment: Patient appears in no apparent distress at this time. Patient and/or jb4 family updated on plan of care and expected duration. Pain level reassessed. Patient is alert, oriented x 3, equal unlabored respirations, skin warm/dry/pink. 01:10 Reassessment: Patient appears in no apparent distress at this time. Patient and/or jb4 family updated on plan of care and expected duration. Pain level reassessed. Patient is alert, oriented x 3, equal unlabored respirations, skin warm/dry/pink. Pt verbalized understanding that the physician wants to transfer them to [place], Pt refused transfer stating she wants to go home. Informed patient that symptoms could return and condition could worsen, pt verbalized understanding of instructions and signed AMA form. Vital Signs: 12/27 21:50 BP 137 / 68; Pulse 88; Resp 16; Temp 98.2; Pulse Ox 100% ; Weight 64.86 kg; Height 5 rr5 ft. 2 in. (157.48 cm); Pain 0/10; 23:00 BP 138 / 61; Pulse 73; Resp 16; Pulse Ox 100% on R/A; Pain 0/10; jb4 12/28 00:00 BP 144 / 73; Pulse 82; Resp 16; Pulse Ox 100% on R/A; jb4 00:30 BP 134 / 68; Pulse 78; Resp 16; Pulse Ox 99% on R/A; jb4 12/27 21:50 Body Mass Index 26.15 (64.86 kg, 157.48 cm) rr5 ED Course: 12/27 21:55 EKG done, by ED staff, reviewed by Chevy Cifuentes MD. rr5 22:03 Patient arrived in ED. rr5 22:06 Triage completed. rr5 22:07 Arm band placed on right wrist. rr5 22:12 Estiven Phan, RN is Primary Nurse. jb4 22:15 Patient has correct armband on for positive identification. Placed in gown. Bed in low jb4 position. Call light in reach. Side rails up X 1. Pulse ox on. NIBP on. 22:19 Paul Flores NP is PHCP. pm1 22:19 Chevy Cifuentes MD is Attending Physician. pm1 22:45 Missed attempt(s): 20 gauge in right antecubital area. Bleeding controlled, band aid jp3 applied, catheter tip intact. 22:50 Initial lab(s) drawn, by ak, sent to lab. Inserted saline lock: 22 gauge in left wrist, jp3 using aseptic technique. Blood collected. 22:55 X-ray(s) taken. jp3 22:55 Patient maintains SpO2 saturation greater than 95% on room air. jp3 22:56 XRAY Chest (1 view) In Process Unspecified. EDMS 12/28 01:31 No provider procedures requiring assistance completed. IV discontinued, intact, jb4 bleeding controlled, No redness/swelling at site. Pressure dressing applied. Administered Medications: No medications were administered Outcome: 01:30 Patient left the ED. mw2 01:30 AMA jb4 01:30 Condition: stable 01:30 Discharge instructions given to patient, Instructed on follow up and referral plans. the need for transfer, Demonstrated understanding of instructions. Signatures: Dispatcher [employer] EDVA Paul Flores, ELIAS MARBLE CUTTER OPERATOR pm1 Estiven Phan, RN RN jb4 Jo Ann Woods mw2 Wil Linares jp3 Joseph White, RN RN rr5 Corrections: (The following items were deleted from the chart) 12/27 22:08 22:07 EKG done, by ED staff, reviewed by Chevy Cifuentes MD rr5 rr5 12/28 01:32 01:31 Patient has correct armband on for positive identification. Placed in gown. Bed jb4 in low position. Call light in reach. Side rails up X 1. jb4 01:31 Pulse ox on. NIBP on. jb4 jb4
--- NOTE | 2019-12-29 00:59 | EDPHYS ---
Physician Documentation [facility] Name: Monique German Age: 84 yrs Sex: Female : 1935 Arrival Date: 12/28/2019 Time: 22:03 Bed 20 Private MD: ED Physician Chevy Cifuentes HPI: 12/27 23:06 This 84 yrs old Female presents to ER via EMS with complaints of Chest Pain. pm1 23:06 The patient or guardian reports chest pain that is located primarily in the anterior pm1 aspect of left upper chest. Onset: just prior to arrival. The pain does not radiate. Associated signs and symptoms: The patient has no apparent associated signs or symptoms. The chest pain is described as skipping sensation and pressure. Duration: The patient or guardian reports a single episode, that lasted 3 minute(s). Modifying factors: The symptoms are alleviated by nothing. the symptoms are aggravated by nothing. Severity of pain: At its worst the pain was a 3 / 10 in the emergency department the pain is actually worse. The patient has been recently seen by a physician: Patient admitted here for NSTEMI on 12/19/2019 and then transferred to [facility] for stent placement. Patient was discharged from the hospital yesterday. Patient with stent placement on Sunday. 3 total stents placed. . Historical: - Allergies: 22:07 Demerol; rr5 - PMHx: 22:07 Hyperlipidemia; Hypertension; Hypothyroidism; Pulmonary Embolism; ADD/ADHD; rr5 - PSHx: 22:07 Heart stents; Hysterectomy; Knee surgery; shoulder surgery; Tonsillectomy; rr5 - Immunization history:: Adult Immunizations up to date. - Social history:: Smoking status: unknown. ROS: 23:06 Constitutional: Negative for fever, chills, and weight loss. pm1 23:06 Respiratory: Negative for shortness of breath, cough, wheezing, and pleuritic chest pain, Abdomen/GI: Negative for abdominal pain, nausea, vomiting, diarrhea, and constipation, Back: Negative for injury and pain, MS/Extremity: Negative for injury and deformity, Skin: Negative for injury, rash, and discoloration. 23:06 Neuro: Negative for headache, weakness, numbness, tingling, and seizure. 23:06 Cardiovascular: Positive for chest pain, Negative for edema, palpitations. Exam: 23:06 ECG was reviewed by the Attending Physician. pm1 23:06 Constitutional: This is a well developed, well nourished patient who is awake, alert, pm1 and in no acute distress. Head/Face: Normocephalic, atraumatic. Chest/axilla: Normal chest wall appearance and motion. Nontender with no deformity. No lesions are appreciated. 23:06 Back: No spinal tenderness. No costovertebral tenderness. Full range of motion. Skin: Warm, dry with normal turgor. Normal color with no rashes, no lesions, and no evidence of cellulitis. MS/ Extremity: Pulses equal, no cyanosis. Neurovascular intact. Full, normal range of motion. 23:06 Cardiovascular: Exam negative for acute changes, Rate: normal, Rhythm: regular, Pulses: no pulse deficits are appreciated. 23:06 Respiratory: Exam negative for acute changes, respiratory distress, shortness of breath, Breath sounds: are clear throughout. 23:06 Abdomen/GI: Inspection: abdomen appears normal, Palpation: abdomen is soft and non-tender, in all quadrants. 23:06 Neuro: Exam negative for acute changes, Orientation: is normal, Mentation: is normal, Motor: is normal, moves all fours. Vital Signs: 21:50 BP 137 / 68; Pulse 88; Resp 16; Temp 98.2; Pulse Ox 100% ; Weight 64.86 kg; Height 5 rr5 ft. 2 in. (157.48 cm); Pain 0/10; 23:00 BP 138 / 61; Pulse 73; Resp 16; Pulse Ox 100% on R/A; Pain 0/10; jb4 12/28 00:00 BP 144 / 73; Pulse 82; Resp 16; Pulse Ox 100% on R/A; jb4 00:30 BP 134 / 68; Pulse 78; Resp 16; Pulse Ox 99% on R/A; jb4 12/27 21:50 Body Mass Index 26.15 (64.86 kg, 157.48 cm) rr5 MDM: 12/27 22:19 Patient medically screened. pm1 23:39 Data reviewed: vital signs. Data interpreted: Pulse oximetry: on room air is 100 %. pm1 Interpretation: normal. 23:42 Counseling: I had a detailed discussion with the patient and/or guardian regarding: the pm1 historical points, exam findings, and any diagnostic results supporting the discharge/admit diagnosis, lab results, radiology results, the need for further work-up and treatment in the hospital. 23:42 ED course: Patient did not want to stay in the hospital but after repeated explanations pm1 why she needed admission she agreed to stay. 23:49 Physician consultation: Mike FISHER regarding admission, patient's condition, pm1 Would like consultation with cardiology prior to admitting patient. 12/28 00:00 ED course: Software Database Architect environmental service aide paged by answering service. pm1 00:28 ED course: Cardiology paged again by answering service. pm1 00:59 Refusal of service: The patient/guardian displays adequate decision making capability pm1 and despite a detailed discussion of alternatives, benefits, risks, and consequences refuses: Admission to the hospital for further work-up and treatment, Informed patient that I would not be able to keep the patient in the hospital here because cardiology is unavailable to approve admission here. My attending recommended [facility] from our hospital for stent placement when she refused by pass surgery. The patient does not want to stay in the hospital or be transferred because she just got out the hospital yesterday. She said that she wants to follow up with cardiology on an outpatient basis because he chest pain resolved prior to arrival to the ER and she continues to be chest pain free. 12/27 22:20 Order name: Basic Metabolic Panel; Complete Time: 23:28 pm1 12/27 22:20 Order name: CBC with Diff; Complete Time: 00:16 pm1 12/27 22:20 Order name: LFT's; Complete Time: 23:28 pm1 12/27 22:20 Order name: Magnesium; Complete Time: 23:28 pm1 12/27 22:20 Order name: NT PRO-BNP; Complete Time: 23:28 pm1 12/27 22:20 Order name: PT-INR; Complete Time: 23:10 pm1 12/27 22:20 Order name: Troponin (emerg Dept Use Only); Complete Time: 23:28 pm1 12/27 22:20 Order name: XRAY Chest (1 view) pm1 12/27 22:20 Order name: EKG; Complete Time: 22:21 pm1 12/27 22:20 Order name: Cardiac monitoring; Complete Time: 22:25 pm1 12/27 21:20 Order name: EKG - Nurse/Tech; Complete Time: 22:25 pm1 12/27 21:20 Order name: IV Saline Lock; Complete Time: 22:56 pm1 12/27 21: Order name: Labs collected and sent; Complete Time: 22:56 pm1 12/27 23:03 Order name: Manual Differential; Complete Time: 00:16 EDMS 12/27 21: Order name: O2 Per Protocol; Complete Time: 22:25 pm1 12/27 21: Order name: O2 Sat Monitoring; Complete Time: 22: pm1 EC/22 23:06 Rate is 84 beats/min. Rhythm is regular, Normal Sinus Rhythm with No ectopy. No Q pm1 waves. T waves are Normal. No ST changes noted. Clinical impression: Normal ECG. Administered Medications: No medications were administered Disposition: 12/28 06:06 Co-signature as Attending Physician, Chevy Cifuentes MD. mh7 Disposition: 12/29/19 00:59 Patient has left against medical advice. Impression: Chest pain, unspecified. - Patients states they are going to Home. - Condition is Undetermined. - Discharge Instructions: Nonspecific Chest Pain. Follow up: Emergency Department; When: As needed; Reason: Worsening of condition. Follow up: Private Physician; When: Upon discharge from the Emergency Department; Reason: Recheck today's complaints, Continuance of care, Re-evaluation by your physician. - Problem is new. - Symptoms have improved. Signatures: Dispatcher [employer] EDMT Paul Flores NP BUSINESS DEVELOPMENT RECRUITER pm1 Jo Ann Woods mw2 Joseph White, RN RN rr5 Chevy Cifuentes MD MD mh7 Corrections: (The following items were deleted from the chart) 01:30 00:59 12/29/2019 00:59 Patients has left against medical advice. Impression: Chest mw2 pain, unspecified. Patient states they are going to Home. Condition is Undetermined. Follow up: Emergency Department; When: As needed; Reason: Worsening of condition. Follow up: Private Physician; When: Upon discharge from the Emergency Department; Reason: Recheck today's complaints, Continuance of care, Re-evaluation by your physician. Problem is new. Symptoms have improved. pm1
[2019-12-29 06:44] VITALS: TEMP 98.2
[2019-12-29 06:49] VITALS: BP 134/68; O2SAT 99
--- NOTE | 2019-12-29 08:56 | RAD REPORT ---
EXAM DESCRIPTION: RAD - Chest Single View - 12/28/2019 10:56 pm CLINICAL HISTORY: CHEST PAIN Chest pain. COMPARISON: Chest Single View dated 12/19/2019; Chest Pa And Lat (2 Views) dated 09/07/2017; CHEST PA AND LAT 2 VIEW dated 10/22/2013; CHEST PA AND LAT 2 VIEW dated 09/22/2009 FINDINGS: Portable technique limits examination quality. The lungs are grossly clear. The heart is normal in size. Tortuous thoracic aorta noted.Postsurgical changes right rotator cuff repair. IMPRESSION: No acute intrathoracic process suspected.
== END 2019-12-29 01:30 | disposition left against medical advice (07) ==
LOC: ER 21:46
DX: R07.9 Chest pain, unspecified (principal); I25.2 Old myocardial infarction; I10 Essential (primary) hypertension; Z95.818 Presence of other cardiac implants and grafts; Z88.5 Allergy status to narcotic agent
CPT/HCPCS: 36415; 71045; 80048; 80076; 83735; 83880; 84484; 85025; 85610; 93005; 99284

== ENCOUNTER 2020-09-22 07:02 | Day surgery (SDC) | payer OTHER ==
--- NOTE | 2020-09-13 15:26 | RAD REPORT ---
EXAM DESCRIPTION: RAD - Chest Pa And Lat (2 Views) - 09/13/2020 3:22 pm CLINICAL HISTORY: preop COMPARISON: <Comparisons> FINDINGS: No evidence of edema or pneumonia. The heart size is within normal limits.No acute osseous abnormality. No significant pleural effusions or pneumothorax. IMPRESSION: No acute cardiopulmonary disease.
[2020-09-13 15:47] LABS: Potassium 4.5 mmol/L (3.5-5.1)
[2020-09-13 17:11] LABS: Absolute Lymphocytes (CBC) 2.4 K/uL (0.7-4.9); Basophils % 7.2 % (0-1.3); Hematocrit 39.9 % (36.0-45.0); Lymphocytes % 11.5 % (15.3-44.8); MPV 9.1 fL (7.6-11.3); RBC Red Blood Cell Count 4.28 M/uL (3.86-4.86)
[2020-09-13 20:12] LABS: Platelet Estimate ADEQ
[2020-09-13 20:13] LABS: Anisocytosis 1+; Blood Morphology Comment NOTED (NOT SEEN); Poikilocytosis 2+
--- NOTE | 2020-09-14 13:05 | EKG ---
Test Date: 2020-09-13 Test Time: 14:05:34 Plant Attendant: MIGUEL A MEASUREMENT RESULTS: Intervals: Rate: 83 GA: 182 QRSD: 84 QT: 352 QTc: 413 [place]: P: 51 GA: 182 QRS: 35 T: 35 INTERPRETIVE STATEMENTS: Normal sinus rhythm Normal ECG Compared to ECG 12/28/2019 21:57:00 No significant changes Electronically Signed On 09-14-20 13:04:43 CDT by Gregory Jarrett
[2020-09-22] MEDS ORDERED: Ringers Lactate 1,000 ML IV ONE (07:53)
[2020-09-22] MEDS ORDERED: CEFAZOLIN/SWI 1gm 1 GM/10 ML SYR ONE (08:35)
[2020-09-22] MEDS ORDERED: BUPIVACAINE 0.5% PF 10 ML VIAL ONE (08:50)
[2020-09-22] MEDS ORDERED: FENTANYL CITR 100 MCG/2 ML ONE (09:05)
[2020-09-22] MEDS ORDERED: LIDOCAINE 1% MPF 5 ML VIAL ONE (09:06)
[2020-09-22] MEDS ORDERED: propofoL 200 MG/20 ML VIAL IV ONE ×2 (09:06→09:21)
--- NOTE | 2020-09-22 09:15 | P.BOP ---
Preoperative diagnosis: chest wall ulcerated mass 3x3 cm Postoperative diagnosis: basal cell carcinoma Primary procedure: Wide excision chest wall ulcerated basal cell carcinoma with frozen section Estimated blood loss: <5cc Specimen: mass Findings: basal cell carcinoma, margins free by Dr Adler Anesthesia: General Complications: None Transferred to: Recovery Room Condition: Good
[2020-09-22] MEDS ORDERED: ONDANSETRON 4 MG/2 ML VIAL ONE (09:40)
[2020-09-22] MEDS ORDERED: KETOROLAC 30 MG/ML INJ ONE (09:40)
[2020-09-22 11:07] VITALS: BP 167/77; TEMP 96.4; O2SAT 98
--- NOTE | 2020-09-22 12:51 | DS ---
Date of Discharge: 09/22/2020 Diagnosis: Chest wall ulcerated basal cell carcinoma. Procedure: Wide excision with frozen section of chest wall ulcerated basal cell carcinoma. Disposition: Home. Activity: As tolerated. No heavy lifting. Plan: Follow up in my office in 1 week. Keep area dry until she sees me again in my office. Medications: See orders. SARA/PRINCESS Voice ID: [id number] Report ID: [id number]
--- NOTE | 2020-09-22 12:57 | OP ---
Date of Procedure: 09/22/2020 Surgeon: Mik Georges MD Preoperative Diagnosis: Chest wall ulcerated mass 3 x 3 cm. Postoperative Diagnosis: Basal cell carcinoma. Procedures: Wide excision of chest wall ulcerated basal cell carcinoma. Anesthesia: Local plus general. Findings: Basal cell carcinoma, margins free of tumor by Dr. Adler. Indication: This is the case of an 84-year-old patient, comes to us with an ulcerated mass in the [facility] chest wall. The benefits, alternatives, and risks of wide excision were fully explained, which i nclude, but not limited to infection, bleeding, damage to adjacent structures, anesthesia complicatio n, recurrence, TN, and even . She also understands this may not relieve any symptoms. She migh t need more than one surgical intervention. She understood, signed a consent. Procedure In Detail: The patient was brought to the operating room and placed in supine position. A nesthesia was done without complication. The right chest wall was prepped and draped in usual steril e fashion. Marcaine 0.5% was injected for local anesthetic followed by sharp incision of the skin in a wedge fashion making sure we have at least 1-2 cm margins free. The mass was completely excised, marked for orientation, and sent to the frozen section and came back as basal cell carcinoma, margins free of tumor. Where it was closed, the area was irrigated. Hemostasis was obtained and the area w as closed with 3-0 chromic and 3-0 nylon. The patient tolerated the procedure well. The patient was sent to recovery in stable condition. SARA/PRINCESS Voice ID: [id number] Report ID: [id number]
== END 2020-09-22 11:10 | disposition home or self-care (01) ==
LOC: OR 07:02
PROVIDERS: ATTEND Surgery
PROC: 0JB60ZZ Excision of Chest Subcutaneous Tissue and Fascia, Open Approach (ICD-10-PCS; principal; 2020-09-22 08:45)
DX: C44.519 Basal cell carcinoma of skin of other part of trunk (principal); Z20.822 Contact with and (suspected) exposure to COVID-19
CPT/HCPCS: 93005; 85025; 80048; 36415; 88331; 88332; 88305; 71046; 11606; U0003; J2704 ×2; J3010; J0690; J7120; J2405

== ENCOUNTER 2021-03-17 06:26 | Day surgery (SDC) | payer OTHER ==
[2021-03-17 07:32] LABS: Absolute Lymphocytes (CBC) 2.6 K/uL (0.7-4.9); Lymphocytes % 9.9 % (15.3-44.8); MPV 8.6 fL (7.6-11.3); RBC Red Blood Cell Count 4.17 M/uL (3.86-4.86)
[2021-03-17 07:34] LABS: Protime INR 1.05
[2021-03-17] MEDS ORDERED: NA CHLORIDE 0.9% 1,000 ML ONE (07:34)
[2021-03-17] MEDS ORDERED: MIDAZOLAM HCL 2 MG/2 ML INJ ONE (07:53)
[2021-03-17] MEDS ORDERED: NALOXONE 0.4 MG/ML VIAL ONE (07:53)
[2021-03-17] MEDS ORDERED: FENTANYL CITR 100 MCG/2 ML ONE (07:54)
[2021-03-17 07:55] VITALS: BMI 27.4
[2021-03-17 10:35] LABS: Blood Morphology Comment NOT SEEN (NOT SEEN); Platelet Estimate ADEQ
[2021-03-17 11:00] VITALS: O2SAT 97
[2021-03-17 11:01] VITALS: BP 155/71; TEMP 97.3
--- NOTE | 2021-03-17 12:19 | RAD REPORT ---
EXAM DESCRIPTION: CT - Bone Biopsy Deep - 03/17/2021 9:49 am CLINICAL HISTORY: Bone Marrow Biopsy COMPARISON: No comparisons FINDINGS: Preoperative diagnosis: AML Post operative diagnosis: Same Conscious Sedation: 1 milligram Versed, 50 microgram fentanyl Patient was continuously monitored by nursing staff. Contrast used: NONE Estimated blood loss: less than 5 mL Specimens: 1 core sample, bone marrow aspirate The patient was placed prone on the table and the flank area was prepped and draped in the usual ster ile fashion. 1% lidocaine was infiltrated into the subcutaneous tissues for local anesthesia. Under c omputed tomographic guidance, a a 14 gauge bone biopsy needle was advanced into the right iliac bone. Postprocedure imaging demonstrated no complications. Samples were given to pathology for analysis. Th e patient tolerated the procedure without immediate complication and transferred to the recovery room in stable condition. IMPRESSION: Technically successful CT-guided bone marrow aspiration and core biopsy. All CT scans are performed using dose optimization technique as appropriate and may include automated exposure control or mA/KV adjustment according to patient size.
[2021-03-17 13:16] LABS: Cytogenetics, Bone Marrow SENT
== END 2021-03-17 10:45 | disposition home or self-care (01) ==
LOC: DS 06:26
PROVIDERS: ATTEND Internal Medicine Hematology & Oncology
PROC: 07DR3ZX Extraction of Iliac Bone Marrow, Percutaneous Approach, Diagnostic (ICD-10-PCS; principal; 2021-03-17)
PROC: 079T3ZX Drainage of Bone Marrow, Percutaneous Approach, Diagnostic (ICD-10-PCS; 2021-03-17)
PROC: BQ20ZZZ Computerized Tomography (CT Scan) of Right Hip (ICD-10-PCS; 2021-03-17)
DX: C92.10 Chronic myeloid leukemia, BCR/ABL-positive, not having achieved remission (principal); D47.3 Essential (hemorrhagic) thrombocythemia; D63.8 Anemia in other chronic diseases classified elsewhere; Z71.89 Other specified counseling
CPT/HCPCS: 38222; 77012; 85025; 36415; 88313; 85610; 85044; 88305; 88311; 85730; 20225; J2250; J3010; J7030; J2310

== ENCOUNTER 2022-03-25 10:57 | Emergency (ER) | payer OTHER ==
--- OUTSIDE RECORDS SUMMARY | 2022-03-25 11:01 | XMS REPORT | Clinical Summary ---
:1935 Author Organization [facility] MD Gee [facility] Center Address [address] [place] [address] Care Team Providers Name Role Phone Raulito Hankins MD Primary Care Provider Mar Oglesby MD Unavailable [phone] Allergies Active Allergy Reactions Severity Noted Date Comments Meperidine (Pf) 12/23/2019 Medications Medication Sig Dispensed Refills Start Date End Date Status atorvastatin (LIPITOR) Take 40 mg by 0 Active 10 mg tablet mouth at bedtime. clopidogrel (PLAVIX) 75 Take 75 mg by 0 Active mg tablet mouth daily. metoprolol tartrate Take 12.5 mg by 0 Active (LOPRESSOR) 25 mg tablet mouth twice daily. torsemide (DEMADEX) 20 Take 20 mg by 0 Active mg tablet mouth daily. tolterodine (DETROL LA) Take 4 mg by 0 Active 4 mg 24 hr capsule mouth daily. levothyroxine Take 100 mcg by 0 Active (SYNTHROID, LEVOTHROID) mouth daily. 100 mcg tablet aspirin 81 mg EC tablet Take 81 mg by 0 Active mouth once. cyanocobalamin (VITAMIN Take 1,000 mcg 0 Active B-12) 1000 mcg tablet by mouth daily. potassium 99 mg tab Take 99 mg by 0 Active mouth daily. vit Take 1 tablet by 0 Act keith C/E/Zn/coppr/lutein/zeax mouth daily. an (PRESERVISION AREDS-2 ORAL) multivit-min/iron/folic/ Take 1 tablet by 0 Active lutein (CENTRUM SILVER mouth daily. WOMEN ORAL) co-enzyme Q-10 30 mg Take 30 mg by 0 Active capsule mouth daily. IMATinib (Gleevec) 400 Take 1 tablet 30 tablet 5 04/14/2021 Active mg tabletIndications: (400 mg) by Chronic myeloid leukemia mouth daily. BCR/ABL-positive Additional Information Patient taking differently: 200 mg oral Daily, Reason: Other, Reported on 10/27/2021 Active Problems Patient Care Coordination Note Formatting of this note might be differe nt from the original. Gleevec 200 mg daily started 04/22/2021. Problem Noted Date Chronic myeloid leukemia BCR/ABL-positive 04/14/2021 Hyperlipidemia 04/14/2021 Hypertension 04/14/2021 Deep venous thrombosis 04/14/2021 Osteoarthritis 04/14/2021 Coronary arteriosclerosis 12/23/2019 Encounters Date Type Specialty Care Team Description 01/19/2022 Follow-Up Leukemia Sridhar Hankins MD leukemia BCR/ABL-positiv e not having achieved remission 01/19/2022 Hospital Encounter Lab Kesha Pineda Chro keith myeloid [employer] leukemia BCR/ABL-positiv e not having achieved remission 01/19/2022 Orders Only Leukemia Kesha Pineda, Chronic my eloid [employer] leukemia BCR/ABL-positiv e not having achieved remission (Prim jocelyn Dx) 01/19/2022 Travel 10/27/2021 Office Visit Sridhar Carr MD leukemia BCR/ABL-positiv e not having achieved remission 10/27/2021 Hospital Encounter Lab Sridhar Hankins m venancio Cabezas MD leukemia BCR/ABL-positiv e not having achieved remission 10/27/2021 Orders Only Kesha Bowman Chronic my eloid [employer] leukemia BCR/ABL-positiv e not having achieved remission (Prim jocelyn Dx) 10/27/2021 Travel 09/01/2021 Orders Only Leukemia Kesha Pineda APN 08/02/2021 Office Visit Sridhar Carr MD leukemia BCR/ABL-positiv e 08/02/2021 Hospital Encounter Lab Kesha Pineda Chro keith myeloid [employer] leukemia BCR/ABL-positiv e 08/02/2021 Orders Only Leukemia Kesha Pineda Chronic my eloid [employer] leukemia BCR/ABL-positiv e not having achieved remission (Prim jocelyn Dx) 08/02/2021 Orders Only Leukemia MiriamKesha APN 08/02/2021 Travel 05/10/2021 Office Visit Leukemia Nhi, Chronic myeloid leukemia BCR/ABL-positive; MD Raulito 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 05/10/2021 Hospital Encounter Lab Kesha Pineda, Adjuster keith myeloid leukemia BCR/ABL-positive; [employer] 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 05/10/2021 Orders Only Leukemia Kesha Pineda, Chronic my eloid [employer] leukemia BCR/ABL-positiv e (Primary Dx) 05/10/2021 Travel 04/28/2021 Office Visit Leukemia WilnershelbyKesha, Chronic my eloid leukemia BCR/ABL-positive; [employer] Chronic myeloid leukemia BCR/ABL-positiv e not having achieved remission Kb Goyal PA 04/28/2021 Hospital Encounter Lab Kesha Pineda, Adjuster keith myeloid leukemia BCR/ABL-positive; [employer] 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 04/28/2021 Travel 04/14/2021 Hospital Encounter Lab Kesha Pineda, Adjuster keith myeloid [employer] leukemia BCR/ABL-positiv e not having achieved remission 04/14/2021 Office Visit Leukemia Nhi, Chronic myeloid MD Raulito leukemia BCR/ABL-positiv e (Primary Dx) 04/14/2021 NPR Patient Access Jose Carlos Hankins MD 04/14/2021 Documentation Leukemia Tegannma Guanakito U 04/14/2021 Orders Only Leukemia Radha Meléndez Chronic myel oid R, PharmD leukemia BCR/ABL-positiv e (Primary Dx) 04/14/2021 Orders Only Leukemia Priscila Pinedazabeth, Chronic my eloid leukemia BCR/ABL-positive (Primary Dx); [employer] 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 04/14/2021 Travel 04/11/2021 Travel 04/05/2021 Travel after 03/25/2021 Surgical History Surgery Date Site/Laterality Comments TOTAL KNEE ARTHROPLASTY 02/05/2003 - 02/05/2004 Bilateral SHOULDER ARTHROSCOPY 02/05/2011 - 02/05/2012 Bilateral HYSTERECTOMY 02/05/1997 - 02/04/1998 Medical History Medical History Date Comments Hypertension Coronary artery disease due to calcified coronary lesion 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 in R leg Myocardial infarction 12/2019 Hyperlipidemia Skin cancer 2020 unsure of type Family History Medical History Relation Name Comments Heart disease Brother 1 Heart disease Brother 2 Gout Daughter 1 Kidney failure Daughter 1 Osteoporosis Daughter 1 Wilm's tumor Daughter 1 Heart attack Father Relation Name Status Comments Brother 1 Alive Brother 2 Alive Daughter 1 Alive Daughter 2 Alive Father Mother Alive Social History Tobacco Use Types Packs/Day Years Used Date Smoking Tobacco: Never Smokeless Tobacco: Never Alcohol Use Standard Drinks/Week Comments Never 0 (1 standard drink = 0.6 oz pure alcoho l) Alcohol Habits Answer Date Recorded How often do you have a drink containing alcohol? Never 04/14/2021 How many drinks containing alcohol do you have on a typical Not asked day when you are drinking? How often do you have six or more drinks on one occasion? No t asked Sex Assigned at Date Recorded Not on file Job Start Date Occupation Industry Not on file Not on file Not on file Obstetrics History Last Filed Vital Signs Vital Sign Reading Time Taken Comments Blood Pressure 171/70 01/19/2022 10:06 AM [employer] Pulse 72 01/19/2022 10:06 AM [employer] Temperature 36.9 C (98.4 F) 01/19/2022 10:06 AM [employer] Respiratory Rate 17 01/19/2022 10:06 AM [employer] AND [employer] Oxygen Saturation 98% 01/19/2022 10:06 AM [employer] AND [employer] Inhaled Oxygen Concentration - - Weight 72.2 kg (159 lb 2.8 oz) 01/19/2022 10:06 AM [employer] AND [employer] Height 153.5 cm (5' 0.43") 04/14/2021 8:10 AM [employer] AND [employer] Body Mass Index 30.64 04/14/2021 8:10 AM [employer] Plan of Treatment Date Type Specialty Care Team Description 07/20/2022 Appointment Lab Kesha Pineda APN [address] [place], [place] [address] (Wo rk) 07/20/2022 Follow-Up Leukemia Keron Hankins MD [address] [place], [place] [address] (Wo rk) Health Maintenance Due Date Last Done Comments COVID-19 Vaccination (#1) 06/01/1936 Procedures Procedure Name Priority Date/Time Associated Comments Diagnosis HP T(9;22) BCR/ABL1 Routine 01/19/2022 9:08 QUANTITATIVE PCR AM [employer] INTERPRETATION AND REPORT .GLOMERULAR FILTRATION Routine 01/19/2022 9:08 Chronic myeloid Results for this RATE AM [employer] leukemia procedure are i n BCR/ABL-positive the results not having section. achieved remission SERUM CREATININE Routine 01/19/2022 9:08 Chronic myeloid Resul ts for this AM [employer] leukemia procedure are i n BCR/ABL-positive the results not having section. achieved remission ASPARTATE Routine 01/19/2022 9:08 Chronic myeloid Results f or this AMINOTRANSFERASE AM [employer] leukemia procedure a re in BCR/ABL-positive the results not having section. achieved remission MAGNESIUM LEVEL Routine 01/19/2022 9:08 Chronic myeloid Result s for this AM [employer] leukemia procedure are i n BCR/ABL-positive the results not having section. achieved remission ELECTROLYTE PANEL Routine 01/19/2022 9:08 Chronic myeloid Resu lts for this AM [employer] leukemia procedure are i n BCR/ABL-positive the results not having section. achieved remission ALANINE AMINOTRANSFERASE Routine 01/19/2022 9:08 Chronic myelo id Results for this AM [employer] leukemia procedure are i n BCR/ABL-positive the results not having section. achieved remission LACTATE DEHYDROGENASE Routine 01/19/2022 9:08 Chronic myeloid Results for this AM [employer] leukemia procedure are i n BCR/ABL-positive the results not having section. achieved remission ALKALINE PHOSPHATASE Routine 01/19/2022 9:08 Chronic myeloid R esults for this AM [employer] leukemia procedure are i n BCR/ABL-positive the results not having section. achieved remission FRACTIONATED BILIRUBIN Routine 01/19/2022 9:08 Chronic myeloid Results for this AM [employer] leukemia procedure are i n BCR/ABL-positive the results not having section. achieved remission URIC ACID Routine 01/19/2022 9:08 Chronic myeloid Results f or this AM [employer] leukemia procedure are i n BCR/ABL-positive the results not having section. achieved remission SERUM CREATININE Routine 01/19/2022 9:08 Chronic myeloid AM [employer] AND [employer] leukemia BCR/ABL-positive not having achieved remission BLOOD UREA NITROGEN Routine 01/19/2022 9:08 Chronic myeloid Re sults for this AM [employer] leukemia procedure are i n BCR/ABL-positive the results not having section. achieved remission GLUCOSE, RANDOM Routine 01/19/2022 9:08 Chronic myeloid Result s for this AM [employer] leukemia procedure are i n BCR/ABL-positive the results not having section. achieved remission PHOSPHORUS LEVEL Routine 01/19/2022 9:08 Chronic myeloid Resul ts for this AM [employer] leukemia procedure are i n BCR/ABL-positive the results not having section. achieved remission CALCIUM LEVEL TOTAL Routine 01/19/2022 9:08 Chronic myeloid Re sults for this AM [employer] leukemia procedure are i n BCR/ABL-positive the results not having section. achieved remission ALBUMIN LEVEL Routine 01/19/2022 9:08 Chronic myeloid Results for this AM [employer] leukemia procedure are i n BCR/ABL-positive the results not having section. achieved remission TOTAL PROTEIN Routine 01/19/2022 9:08 Chronic myeloid Results for this AM [employer] leukemia procedure are i n BCR/ABL-positive the results not having section. achieved remission HP T(9;22) BCR/ABL1 Routine 01/19/2022 9:08 Chronic myeloid Results for this QUANTITATIVE PCR AM [employer] leukemia procedure a re in COLLECTION, BLOOD BCR/ABL-positive the re sults not having section. achieved remission HP T(9;22) BCR/ABL1 Routine 10/27/2021 8:52 QUANTITATIVE PCR AM CDT INTERPRETATION AND REPORT MANUAL DIFFERENTIAL STAT 10/27/2021 8:52 Chronic myeloid Re sults for this AM CDT leukemia procedure are i n BCR/ABL-positive the results not having section. achieved remission Results CBC STAT 10/27/2021 8:52 Chronic myeloid Results f or this AM CDT leukemia procedure are i n BCR/ABL-positive the results not having section. achieved remission .GLOMERULAR FILTRATION Routine 10/27/2021 8:52 Chronic myeloid Results for this RATE AM CDT leukemia procedure are i n BCR/ABL-positive the results not having section. achieved remission SERUM CREATININE Routine 10/27/2021 8:52 Chronic myeloid Resul ts for this AM CDT leukemia procedure are i n BCR/ABL-positive the results not having section. achieved remission COMPLETE BLOOD COUNT W/ Routine 10/27/2021 8:52 Chronic myeloi d DIFFERENTIAL AM CDT leukemia BCR/ABL-positive not having achieved remission MAGNESIUM LEVEL Routine 10/27/2021 8:52 Chronic myeloid Result s for this AM CDT leukemia procedure are i n BCR/ABL-positive the results not having section. achieved remission ELECTROLYTE PANEL Routine 10/27/2021 8:52 Chronic myeloid Resu lts for this AM CDT leukemia procedure are i n BCR/ABL-positive the results not having section. achieved remission ALANINE AMINOTRANSFERASE Routine 10/27/2021 8:52 Chronic myelo id Results for this AM CDT leukemia procedure are i n BCR/ABL-positive the results not having section. achieved remission LACTATE DEHYDROGENASE Routine 10/27/2021 8:52 Chronic myeloid Results for this AM CDT leukemia procedure are i n BCR/ABL-positive the results not having section. achieved remission ALKALINE PHOSPHATASE Routine 10/27/2021 8:52 Chronic myeloid R esults for this AM CDT leukemia procedure are i n BCR/ABL-positive the results not having section. achieved remission FRACTIONATED BILIRUBIN Routine 10/27/2021 8:52 Chronic myeloid Results for this AM CDT leukemia procedure are i n BCR/ABL-positive the results not having section. achieved remission URIC ACID Routine 10/27/2021 8:52 Chronic myeloid Results f or this AM CDT leukemia procedure are i n BCR/ABL-positive the results not having section. achieved remission SERUM CREATININE Routine 10/27/2021 8:52 Chronic myeloid AM CDT leukemia BCR/ABL-positive not having achieved remission BLOOD UREA NITROGEN Routine 10/27/2021 8:52 Chronic myeloid Re sults for this AM CDT leukemia procedure are i n BCR/ABL-positive the results not having section. achieved remission GLUCOSE, RANDOM Routine 10/27/2021 8:52 Chronic myeloid Result s for this AM CDT leukemia procedure are i n BCR/ABL-positive the results not having section. achieved remission PHOSPHORUS LEVEL Routine 10/27/2021 8:52 Chronic myeloid Resul ts for this AM CDT leukemia procedure are i n BCR/ABL-positive the results not having section. achieved remission CALCIUM LEVEL TOTAL Routine 10/27/2021 8:52 Chronic myeloid Re sults for this AM CDT leukemia procedure are i n BCR/ABL-positive the results not having section. achieved remission ALBUMIN LEVEL Routine 10/27/2021 8:52 Chronic myeloid Results for this AM CDT leukemia procedure are i n BCR/ABL-positive the results not having section. achieved remission TOTAL PROTEIN Routine 10/27/2021 8:52 Chronic myeloid Results for this AM CDT leukemia procedure are i n BCR/ABL-positive the results not having section. achieved remission HP T(9;22) BCR/ABL1 Routine 10/27/2021 8:52 Chronic myeloid Results for this QUANTITATIVE PCR AM CDT leukemia procedure a re in COLLECTION, BLOOD BCR/ABL-positive the re sults not having section. achieved remission CLOT EXPIRATION DATE Routine 08/02/2021 8:42 Resu lts for this AM CDT procedure are i n the results section. TMP INTERPRETATION Routine 08/02/2021 8:42 Result s for this ANTIBODY SCREEN NEGATIVE AM CDT pro cedure are in the results section. HP T(9;22) BCR/ABL1 Routine 08/02/2021 8:42 QUANTITATIVE PCR AM CDT INTERPRETATION AND REPORT ANTIBODY SCREEN Routine 08/02/2021 8:42 Chronic myeloid Result s for this AM CDT leukemia procedure are i n BCR/ABL-positive the results section. ABORH Routine 08/02/2021 8:42 Chronic myeloid Results f or this AM CDT leukemia procedure are i n BCR/ABL-positive the results section. MANUAL DIFFERENTIAL STAT 08/02/2021 8:42 Chronic myeloid Re sults for this AM CDT leukemia procedure are i n BCR/ABL-positive the results section. Results CBC STAT 08/02/2021 8:42 Chronic myeloid Results f or this AM CDT leukemia procedure are i n BCR/ABL-positive the results section. .GLOMERULAR FILTRATION Routine 08/02/2021 8:42 Chronic myeloid Results for this RATE AM CDT leukemia procedure are i n BCR/ABL-positive the results section. SERUM CREATININE Routine 08/02/2021 8:42 Chronic myeloid Resul ts for this AM CDT leukemia procedure are i n BCR/ABL-positive the results section. COMPLETE BLOOD COUNT W/ Routine 08/02/2021 8:42 Chronic myeloi d DIFFERENTIAL AM CDT leukemia BCR/ABL-positive TYPE AND SCREEN Routine 08/02/2021 8:42 Chronic myeloid AM CDT leukemia BCR/ABL-positive ASPARTATE Routine 08/02/2021 8:42 Chronic myeloid Results f or this AMINOTRANSFERASE AM CDT leukemia procedure a re in BCR/ABL-positive the results section. MAGNESIUM LEVEL Routine 08/02/2021 8:42 Chronic myeloid Result s for this AM CDT leukemia procedure are i n BCR/ABL-positive the results section. ELECTROLYTE PANEL Routine 08/02/2021 8:42 Chronic myeloid Resu lts for this AM CDT leukemia procedure are i n BCR/ABL-positive the results section. ALANINE AMINOTRANSFERASE Routine 08/02/2021 8:42 Chronic myelo id Results for this AM CDT leukemia procedure are i n BCR/ABL-positive the results section. LACTATE DEHYDROGENASE Routine 08/02/2021 8:42 Chronic myeloid Results for this AM CDT leukemia procedure are i n BCR/ABL-positive the results section. ALKALINE PHOSPHATASE Routine 08/02/2021 8:42 Chronic myeloid R esults for this AM CDT leukemia procedure are i n BCR/ABL-positive the results section. FRACTIONATED BILIRUBIN Routine 08/02/2021 8:42 Chronic myeloid Results for this AM CDT leukemia procedure are i n BCR/ABL-positive the results section. URIC ACID Routine 08/02/2021 8:42 Chronic myeloid Results f or this AM CDT leukemia procedure are i n BCR/ABL-positive the results section. SERUM CREATININE Routine 08/02/2021 8:42 Chronic myeloid AM CDT leukemia BCR/ABL-positive BLOOD UREA NITROGEN Routine 08/02/2021 8:42 Chronic myeloid Re sults for this AM CDT leukemia procedure are i n BCR/ABL-positive the results section. GLUCOSE, RANDOM Routine 08/02/2021 8:42 Chronic myeloid Result s for this AM CDT leukemia procedure are i n BCR/ABL-positive the results section. PHOSPHORUS LEVEL Routine 08/02/2021 8:42 Chronic myeloid Resul ts for this AM CDT leukemia procedure are i n BCR/ABL-positive the results section. CALCIUM LEVEL TOTAL Routine 08/02/2021 8:42 Chronic myeloid Re sults for this AM CDT leukemia procedure are i n BCR/ABL-positive the results section. ALBUMIN LEVEL Routine 08/02/2021 8:42 Chronic myeloid Results for this AM CDT leukemia procedure are i n BCR/ABL-positive the results section. TOTAL PROTEIN Routine 08/02/2021 8:42 Chronic myeloid Results for this AM CDT leukemia procedure are i n BCR/ABL-positive the results section. HP T(9;22) BCR/ABL1 Routine 08/02/2021 8:42 Chronic myeloid Results for this QUANTITATIVE PCR AM CDT leukemia procedure a re in COLLECTION, BLOOD BCR/ABL-positive the re sults section. MANUAL DIFFERENTIAL Routine 05/10/2021 9:12 Chronic myeloid Re sults for this AM CDT leukemia procedure are i n BCR/ABL-positive the results Chronic myeloid section. leukemia BCR/ABL-positive not having achieved remission Results CBC STAT 05/10/2021 9:12 Chronic myeloid Results f or this AM CDT leukemia procedure are i n BCR/ABL-positive the results Chronic myeloid section. leukemia BCR/ABL-positive not having achieved remission .GLOMERULAR FILTRATION Routine 05/10/2021 9:12 Chronic myeloid Results for this RATE AM CDT leukemia procedure are i n BCR/ABL-positive the results Chronic myeloid section. leukemia BCR/ABL-positive not having achieved remission SERUM CREATININE Routine 05/10/2021 9:12 Chronic myeloid Resul ts for this AM CDT leukemia procedure are i n BCR/ABL-positive the results Chronic myeloid section. leukemia BCR/ABL-positive not having achieved remission COMPLETE BLOOD COUNT W/ Routine 05/10/2021 9:12 Chronic myeloi d DIFFERENTIAL AM CDT leukemia BCR/ABL-positive 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 ASPARTATE Routine 05/10/2021 9:12 Chronic myeloid Results f or this AMINOTRANSFERASE AM CDT leukemia procedure a re in BCR/ABL-positive the results Chronic myeloid section. leukemia BCR/ABL-positive not having achieved remission MAGNESIUM LEVEL Routine 05/10/2021 9:12 Chronic myeloid Result s for this AM CDT leukemia procedure are i n BCR/ABL-positive the results Chronic myeloid section. leukemia BCR/ABL-positive not having achieved remission ELECTROLYTE PANEL Routine 05/10/2021 9:12 Chronic myeloid Resu lts for this AM CDT leukemia procedure are i n BCR/ABL-positive the results Chronic myeloid section. leukemia BCR/ABL-positive not having achieved remission ALANINE AMINOTRANSFERASE Routine 05/10/2021 9:12 Chronic myelo id Results for this AM CDT leukemia procedure are i n BCR/ABL-positive the results Chronic myeloid section. leukemia BCR/ABL-positive not having achieved remission LACTATE DEHYDROGENASE Routine 05/10/2021 9:12 Chronic myeloid Results for this AM CDT leukemia procedure are i n BCR/ABL-positive the results Chronic myeloid section. leukemia BCR/ABL-positive not having achieved remission ALKALINE PHOSPHATASE Routine 05/10/2021 9:12 Chronic myeloid R esults for this AM CDT leukemia procedure are i n BCR/ABL-positive the results Chronic myeloid section. leukemia BCR/ABL-positive not having achieved remission FRACTIONATED BILIRUBIN Routine 05/10/2021 9:12 Chronic myeloid Results for this AM CDT leukemia procedure are i n BCR/ABL-positive the results Chronic myeloid section. leukemia BCR/ABL-positive not having achieved remission URIC ACID Routine 05/10/2021 9:12 Chronic myeloid Results f or this AM CDT leukemia procedure are i n BCR/ABL-positive the results Chronic myeloid section. leukemia BCR/ABL-positive not having achieved remission SERUM CREATININE Routine 05/10/2021 9:12 Chronic myeloid AM CDT leukemia BCR/ABL-positive 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 BLOOD UREA NITROGEN Routine 05/10/2021 9:12 Chronic myeloid Re sults for this AM CDT leukemia procedure are i n BCR/ABL-positive the results Chronic myeloid section. leukemia BCR/ABL-positive not having achieved remission GLUCOSE, RANDOM Routine 05/10/2021 9:12 Chronic myeloid Result s for this AM CDT leukemia procedure are i n BCR/ABL-positive the results Chronic myeloid section. leukemia BCR/ABL-positive not having achieved remission PHOSPHORUS LEVEL Routine 05/10/2021 9:12 Chronic myeloid Resul ts for this AM CDT leukemia procedure are i n BCR/ABL-positive the results Chronic myeloid section. leukemia BCR/ABL-positive not having achieved remission CALCIUM LEVEL TOTAL Routine 05/10/2021 9:12 Chronic myeloid Re sults for this AM CDT leukemia procedure are i n BCR/ABL-positive the results Chronic myeloid section. leukemia BCR/ABL-positive not having achieved remission ALBUMIN LEVEL Routine 05/10/2021 9:12 Chronic myeloid Results for this AM CDT leukemia procedure are i n BCR/ABL-positive the results Chronic myeloid section. leukemia BCR/ABL-positive not having achieved remission TOTAL PROTEIN Routine 05/10/2021 9:12 Chronic myeloid Results for this AM CDT leukemia procedure are i n BCR/ABL-positive the results Chronic myeloid section. leukemia BCR/ABL-positive not having achieved remission TMP INTERPRETATION Routine 04/28/2021 8:45 Result s for this ANTIBODY SCREEN NEGATIVE AM CDT pro cedure are in the results section. CLOT EXPIRATION DATE Routine 04/28/2021 8:45 Resu lts for this AM CDT procedure are i n the results section. .GLOMERULAR FILTRATION Routine 04/28/2021 8:45 Chronic myeloid Results for this RATE AM CDT leukemia procedure are i n BCR/ABL-positive the results Chronic myeloid section. leukemia BCR/ABL-positive not having achieved remission SERUM CREATININE Routine 04/28/2021 8:45 Chronic myeloid Resul ts for this AM CDT leukemia procedure are i n BCR/ABL-positive the results Chronic myeloid section. leukemia BCR/ABL-positive not having achieved remission MANUAL DIFFERENTIAL STAT 04/28/2021 8:45 Chronic myeloid Re sults for this AM CDT leukemia procedure are i n BCR/ABL-positive the results Chronic myeloid section. leukemia BCR/ABL-positive not having achieved remission Results CBC STAT 04/28/2021 8:45 Chronic myeloid Results f or this AM CDT leukemia procedure are i n BCR/ABL-positive the results Chronic myeloid section. leukemia BCR/ABL-positive not having achieved remission ANTIBODY SCREEN Routine 04/28/2021 8:45 Chronic myeloid Result s for this AM CDT leukemia procedure are i n BCR/ABL-positive the results Chronic myeloid section. leukemia BCR/ABL-positive not having achieved remission ABORH Routine 04/28/2021 8:45 Chronic myeloid Results f or this AM CDT leukemia procedure are i n BCR/ABL-positive the results Chronic myeloid section. 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 HP T(9;22) BCR/ABL1 Routine 04/14/2021 10:04 QUANTITATIVE PCR AM REPAIRER AND CHECKER INTERPRETATION AND REPORT CLOT EXPIRATION DATE Routine 04/14/2021 10:04 Res ults for this AM REPAIRER AND CHECKER procedure are i n the results section. TMP INTERPRETATION Routine 04/14/2021 10:04 Resul ts for this ANTIBODY SCREEN NEGATIVE AM REPAIRER AND CHECKER pro cedure are in the results section. HEPATITIS B SURFACE AG Routine 04/14/2021 10:04 R esults for this W/CONFIRM AM REPAIRER AND CHECKER procedure are i n the results section. HEPATITIS B CORE TOTAL Routine 04/14/2021 10:04 R esults for this ANTIBODY AM REPAIRER AND CHECKER procedure are i n the results section. ANTIBODY SCREEN Routine 04/14/2021 10:04 Chronic myeloid Resul ts for this AM REPAIRER AND CHECKER leukemia procedure are i n BCR/ABL-positive the results not having section. achieved remission MANUAL DIFFERENTIAL Routine 04/14/2021 10:04 Chronic myeloid R esults for this AM REPAIRER AND CHECKER leukemia procedure are i n BCR/ABL-positive the results not having section. achieved remission Results CBC STAT 04/14/2021 10:04 Chronic myeloid Results for this AM REPAIRER AND CHECKER leukemia procedure are i n BCR/ABL-positive the results not having section. achieved remission ABORH Routine 04/14/2021 10:04 Chronic myeloid Results for this AM REPAIRER AND CHECKER leukemia procedure are i n BCR/ABL-positive the results not having section. achieved remission .GLOMERULAR FILTRATION Routine 04/14/2021 10:04 Chronic myeloi d Results for this RATE AM REPAIRER AND CHECKER leukemia procedure are i n BCR/ABL-positive the results not having section. achieved remission SERUM CREATININE Routine 04/14/2021 10:04 Chronic myeloid Resu lts for this AM REPAIRER AND CHECKER leukemia procedure are i n BCR/ABL-positive the results not having section. achieved remission HEPATITIS B CORE Routine 04/14/2021 10:04 Chronic myeloid Resu lts for this ANTIBODY AM REPAIRER AND CHECKER leukemia procedure are i n BCR/ABL-positive the results not having section. achieved remission RESEARCH PROTOCOL Routine 04/14/2021 10:04 Chronic myeloid Res ults for this [id number] AM REPAIRER AND CHECKER leukemia procedure are i n BCR/ABL-positive the results not having section. achieved remission COMPLETE BLOOD COUNT W/ Routine 04/14/2021 10:04 Chronic myelo id DIFFERENTIAL AM REPAIRER AND CHECKER leukemia BCR/ABL-positive not having achieved remission HEPATITIS C VIRUS Routine 04/14/2021 10:04 Chronic myeloid Res ults for this ANTIBODY AM REPAIRER AND CHECKER leukemia procedure are i n BCR/ABL-positive the results not having section. achieved remission HEPATITIS B SURFACE Routine 04/14/2021 10:04 Chronic myeloid R esults for this ANTIGEN, SERUM AM REPAIRER AND CHECKER leukemia procedure are in BCR/ABL-positive the results not having section. achieved remission TYPE AND SCREEN Routine 04/14/2021 10:04 Chronic myeloid AM REPAIRER AND CHECKER leukemia BCR/ABL-positive not having achieved remission FIBRINOGEN ACTIVITY Routine 04/14/2021 10:04 Chronic myeloid R esults for this AM REPAIRER AND CHECKER leukemia procedure are i n BCR/ABL-positive the results not having section. achieved remission BHCG Routine 04/14/2021 10:04 Chronic myeloid Result s for this AM REPAIRER AND CHECKER leukemia procedure are i n BCR/ABL-positive the results not having section. achieved remission IMMUNOGLOBULIN G SERUM Routine 04/14/2021 10:04 Chronic myeloi d Results for this AM REPAIRER AND CHECKER leukemia procedure are i n BCR/ABL-positive the results not having section. achieved remission IMMUNOGLOBULIN M SERUM Routine 04/14/2021 10:04 Chronic myeloi d Results for this AM REPAIRER AND CHECKER leukemia procedure are i n BCR/ABL-positive the results not having section. achieved remission IMMUNOGLOBULIN A SERUM Routine 04/14/2021 10:04 Chronic myeloi d Results for this AM REPAIRER AND CHECKER leukemia procedure are i n BCR/ABL-positive the results not having section. achieved remission ASPARTATE Routine 04/14/2021 10:04 Chronic myeloid Results for this AMINOTRANSFERASE AM REPAIRER AND CHECKER leukemia procedure a re in BCR/ABL-positive the results not having section. achieved remission MAGNESIUM LEVEL Routine 04/14/2021 10:04 Chronic myeloid Resul ts for this AM REPAIRER AND CHECKER leukemia procedure are i n BCR/ABL-positive the results not having section. achieved remission ELECTROLYTE PANEL Routine 04/14/2021 10:04 Chronic myeloid Res ults for this AM REPAIRER AND CHECKER leukemia procedure are i n BCR/ABL-positive the results not having section. achieved remission ALANINE AMINOTRANSFERASE Routine 04/14/2021 10:04 Chronic myel oid Results for this AM REPAIRER AND CHECKER leukemia procedure are i n BCR/ABL-positive the results not having section. achieved remission LACTATE DEHYDROGENASE Routine 04/14/2021 10:04 Chronic myeloid Results for this AM REPAIRER AND CHECKER leukemia procedure are i n BCR/ABL-positive the results not having section. achieved remission ALKALINE PHOSPHATASE Routine 04/14/2021 10:04 Chronic myeloid Results for this AM REPAIRER AND CHECKER leukemia procedure are i n BCR/ABL-positive the results not having section. achieved remission FRACTIONATED BILIRUBIN Routine 04/14/2021 10:04 Chronic myeloi d Results for this AM REPAIRER AND CHECKER leukemia procedure are i n BCR/ABL-positive the results not having section. achieved remission URIC ACID Routine 04/14/2021 10:04 Chronic myeloid Results for this AM REPAIRER AND CHECKER leukemia procedure are i n BCR/ABL-positive the results not having section. achieved remission SERUM CREATININE Routine 04/14/2021 10:04 Chronic myeloid AM REPAIRER AND CHECKER leukemia BCR/ABL-positive not having achieved remission BLOOD UREA NITROGEN Routine 04/14/2021 10:04 Chronic myeloid R esults for this AM REPAIRER AND CHECKER leukemia procedure are i n BCR/ABL-positive the results not having section. achieved remission GLUCOSE, RANDOM Routine 04/14/2021 10:04 Chronic myeloid Resul ts for this AM REPAIRER AND CHECKER leukemia procedure are i n BCR/ABL-positive the results not having section. achieved remission PHOSPHORUS LEVEL Routine 04/14/2021 10:04 Chronic myeloid Resu lts for this AM REPAIRER AND CHECKER leukemia procedure are i n BCR/ABL-positive the results not having section. achieved remission CALCIUM LEVEL TOTAL Routine 04/14/2021 10:04 Chronic myeloid R esults for this AM REPAIRER AND CHECKER leukemia procedure are i n BCR/ABL-positive the results not having section. achieved remission ALBUMIN LEVEL Routine 04/14/2021 10:04 Chronic myeloid Results for this AM REPAIRER AND CHECKER leukemia procedure are i n BCR/ABL-positive the results not having section. achieved remission TOTAL PROTEIN Routine 04/14/2021 10:04 Chronic myeloid Results for this AM REPAIRER AND CHECKER leukemia procedure are i n BCR/ABL-positive the results not having section. achieved remission HP MD T(9;22) BCR/ABL1 Routine 04/14/2021 10:04 Chronic myeloi d Results for this QUANTITATIVE PCR AM REPAIRER AND CHECKER leukemia procedure a re in COLLECTION, BLOOD BCR/ABL-positive the re sults not having section. achieved remission CONFIRM ABORH TYPE Routine 04/14/2021 9:40 Result s for this AM REPAIRER AND CHECKER procedure are i n the results section. after 03/25/2021 Results t(9;22) BCR/ABL1 Quantitative PCR Collection, Blood (01/19/2022 9:08 AM REPAIRER AND CHECKER) Only the most recent of4 resultswithin the time period is included. athologist [facility] Molecular Yes [facility] Diagnostics CANCER CENTER (Received) Specimen Anatomical Collection Method Collection Time Receive d Time (Source) Location / / Volume Laterality Blood 01/19/2022 9:08 AM 2 REPAIRER AND CHECKER 10:40 AM REPAIRER AND CHECKER Kesha Pineda APN [facility] MD BLOOD COLLECTIONS Performing Organization Address City/[facility] Phon e Number [facility] CANCER Unless otherwise noted, [place] [address] [place] all lab tests performed by: Division of Pathology and Laboratory Medicine [facility]5 SensibleSelfd Glucose, Random (01/19/2022 9:08 AM REPAIRER AND CHECKER)Only the most recent of6 resultswithin the time period is included. athologist [facility] Glucose Random 148 70 - 199 [facility] mg/dL DIAGNOSTIC CENTER Comment: Effective 09/01/15, the glucose reference intervals have been updated based on [place] [employer] guidelines (Standards of Medical Care in Diabetes 2016. Diabetes Care 2016; 39: S13-S22). Fasting blood glucose: Normal: 70-99 mg/dL Impaired fasting glucose (increased risk for diabetes or pre-diabetes): 100- 125 mg/dL Diabetes mellitus: >/=126 mg/dL Random blood glucose: Normal: 70-199 mg/dL Note: Random glucose >100 mg/dL is assoc iated with increased risk for diabetes Specimen Anatomical Collection Method Collection Time Receive d Time (Source) Location / / Volume Laterality Blood 01/19/2022 9:08 AM 2 REPAIRER AND CHECKER 10:00 AM REPAIRER AND CHECKER Kesha Pineda APN LAB BLOOD ORDERABLES Performing Organization Address City/[facility] Phon e Number [facility] DIAGNOSTIC Unless otherwise noted, [place], [place] [address] CENTER all lab tests performed by: Division of Pathology and Laboratory Medicine [address] (ABNORMAL) .Serum Creatinine (01/19/2022 9:08 AM REPAIRER AND CHECKER)Only the most recent of6 resultswithin the time period is included. athologist Signature Creatinine 1.15 (H) 0.51 - [facility] 0.95 mg/dL DIAGNOSTIC CENTER Specimen Anatomical Collection Method Collection Time Receive d Time (Source) Location / / Volume Laterality Blood 01/19/2022 9:08 AM 2 REPAIRER AND CHECKER 10:00 AM REPAIRER AND CHECKER Kesha Miriam JEROME LAB BLOOD ORDERABLES Performing Organization Address City/[facility] Phon e Number [facility] DIAGNOSTIC Unless otherwise noted, [address] all lab tests performed by: Division of Pathology and Laboratory Medicine [address] (ABNORMAL) Glomerular Filtration Rate (01/19/2022 9:08 AM REPAIRER AND CHECKER)Only the most recent of6 resultswithin the time period is included. athologist Signature eGFR 46 (L) >=60 [facility] mL/min/1.73 DIAGNOSTIC sq. m CENTER Comment: The eGFRcr is calculated with the 2020 KD-EPI creatinine equation using creatinine, patient's age, and sex for adults 18 years of age and older. Other factors, especially muscle mass, may affect accuracy and need to be considered. According to the Kidney Disease: Improvi ng Global Outcomes (KDIGO) CKD Work Group 2012 Clinical Practice Guideline, chronic kidney disease (CKD) is defined as the abnormalities of kidney structure or function, present for more than 3 months, with implications for health. CKD should be c lassified by cause, GFR category, and albuminuria category. KDIGO guidelines provide the following GFR categories Stage Description GFR mL/min/1.73 m2 G1* Normal or high >= 90 G2* Mildly decreased 60-89 G3a Mildly to moderately decreased 45-59 G3b Moderately to severely decreased 30- 44 G4 Severely decreased 15-29 G5 Kidney failure <15 *In the absence of evidence of kidney da mage, neither G1 nor G2 fulfill criteria for CKD. Specimen Anatomical Collection Method Collection Time Receive d Time (Source) Location / / Volume Laterality Blood 01/19/2022 9:08 AM 2 REPAIRER AND CHECKER 10:00 AM REPAIRER AND CHECKER Kesha Pindea APN LAB BLOOD ORDERABLES Performing Organization Address City/[facility] Phon e Number [facility] DIAGNOSTIC Unless otherwise noted, [place], [place] [address] CENTER all lab tests performed by: Division of Pathology and Laboratory Medicine [address] Fractionated Bilirubin (01/19/2022 9:08 AM REPAIRER AND CHECKER)Only the most recent of6 results within the time period is included. athologist Signature Bili Total 0.4 <=1.2 mg/dL [facility] DIAGNOSTIC [place] Comment: Indocyanine Green (ICG) may cause falsel y elevated bilirubin results. Total and direct bilirubin must not be measured from samples containing indocyanine green. False elevation of total bilirubin can b e seen in patients with IgG concentrations above 28 g/L. Bili Direct <0.2 <=0.3 mg/dL [facility] D IAGNOSTIC CENTER Comment: Indocyanine Green (ICG) may cau se falsely elevated bilirubin results. Total and direct bilirubin must not be measure d from samples containing indocyanine green. Bili Indirect See Note 0.0 - 0.9 mg/dL [facility] Comment: Unable to calculate Indirect Bi lirubin result due to some parameters are outside reportable range Specimen Anatomical Collection Method Collection Time Receive d Time (Source) Location / / Volume Laterality Blood 01/19/2022 9:08 AM REPAIRER AND CHECKER 10:00 AM REPAIRER AND CHECKER Kesha Pineda APN LAB BLOOD ORDERABLES Performing Organization Address City/State/ZIP Code Phon e Number [facility] Unless otherwise noted, [place] [address] CENTER all lab tests performed by: Division of Pathology and Laboratory Medicine [address] MD t(9;22) BCR/ABL1 Quantitative PCR Interpretation and Report (01/19/2022 9:08 AM REPAIRER AND CHECKER)Only the most recent of4 resultswithin the time period is included. Specimen (Source) Anatomical Collection Method Collection Time Re ceived Time Location / / Volume Laterality 01/19/2022 9:08 AM REPAIRER AND CHECKER Narrative This result has an attachment that is no t available. Kesha Pineda APN [facility] ([facility]TE[facility]) Uric Acid (01/19/2022 9:08 AM REPAIRER AND CHECKER)Only the most recent of6 resultswithin the time period is included. athologist Signature Uric Acid 5.3 2.4 - 5.7 [facility] mg/dL DIAGNOSTIC CENTER Specimen Anatomical Collection Method Collection Time Receive d Time (Source) Location / / Volume Laterality Blood 01/19/2022 9:08 AM 2 REPAIRER AND CHECKER 10:00 AM REPAIRER AND CHECKER Kesha Pineda [employer] LAB BLOOD ORDERABLES Performing Organization Address City/State/ZIP Code Phon e Number [facility] DIAGNOSTIC Unless otherwise noted, [address] all lab tests performed by: Division of Pathology and Laboratory Medicine [address] BUN (01/19/2022 9:08 AM REPAIRER AND CHECKER)Only the most recent of6 resultswithin the time period is included. athologist Signature BUN 21 6 - 23 [facility] mg/dL [facility] Specimen Anatomical Collection Method Collection Time Receive d Time (Source) Location / / Volume Laterality Blood 01/19/2022 9:08 AM 2 REPAIRER AND CHECKER 10:00 AM REPAIRER AND CHECKER Kesha Pineda [employer] LAB BLOOD ORDERABLES Performing Organization Address City/[facility]/ZIP Code Phon e Number [facility] DIAGNOSTIC Unless otherwise noted, [address] all lab tests performed by: Division of Pathology and Laboratory Medicine [address] Alanine Aminotransferase (01/19/2022 9:08 AM REPAIRER AND CHECKER)Only the most recent of6 resultswithin the time period is included. P athologist Signature ALT 19 <=33 U/L [facility] Specimen Anatomical Collection Method Collection Time Receive d Time (Source) Location / / Volume Laterality Blood 01/19/2022 9:08 AM 2 REPAIRER AND CHECKER 10:00 AM REPAIRER AND CHECKER Kesha Pineda [employer] LAB BLOOD ORDERABLES Performing Organization Address City/State/ZIP Code Phon e Number [facility] DIAGNOSTIC Unless otherwise noted, [address] all lab tests performed by: Division of Pathology and Laboratory Medicine [address] Aspartate Aminotransferase (01/19/2022 9:08 AM REPAIRER AND CHECKER)Only the most recent of4 resultswithin the time period is included. athologist Signature AST 27 <=32 U/L [facility] Specimen Anatomical Collection Method Collection Time Receive d Time (Source) Location / / Volume Laterality Blood 01/19/2022 9:08 AM 2 REPAIRER AND CHECKER 10:00 AM REPAIRER AND CHECKER Kesha Pineda [employer] LAB BLOOD ORDERABLES Performing Organization Address [facility] Phon e Number [facility] DIAGNOSTIC Unless otherwise noted, [address] all lab tests performed by: Division of Pathology and Laboratory Medicine [address] Total Protein (01/19/2022 9:08 AM REPAIRER AND CHECKER)Only the most recent of6 resultswithin the time period is included. P athologist Signature Total Protein 7.2 6.4 - 8.3 [facility] g/dL DIAGNOSTIC CENTER Specimen Anatomical Collection Method Collection Time Receive d Time (Source) Location / / Volume Laterality Blood 01/19/2022 9:08 AM 2 REPAIRER AND CHECKER 10:00 AM REPAIRER AND CHECKER Kesha TheraSimshelby [employer] LAB BLOOD ORDERABLES Performing Organization Address [facility] Phon e Number [facility] DIAGNOSTIC Unless otherwise noted, [address] all lab tests performed by: Division of Pathology and Laboratory Medicine [address] Phosphorus Level (01/19/2022 9:08 AM REPAIRER AND CHECKER)Only the most recent of6 resultswithin the time period is included. P athologist Signature Phosphorus 3.5 2.5 - 4.5 [facility] mg/dL DIAGNOSTIC CENTER Specimen Anatomical Collection Method Collection Time Receive d Time (Source) Location / / Volume Laterality Blood 01/19/2022 9:08 AM 2 REPAIRER AND CHECKER 10:00 AM REPAIRER AND CHECKER Kesha Pineda [employer] LAB BLOOD ORDERABLES Performing Organization Address City/[facility] Phon e Number [facility] DIAGNOSTIC Unless otherwise noted, [address] all lab tests performed by: Division of Pathology and Laboratory Medicine [address] Alkaline Phosphatase (01/19/2022 9:08 AM REPAIRER AND CHECKER)Only the most recent of6 results within the time period is included. P athologist Signature Alk Phos 42 35 - 104 [facility] U/L DIAGNOSTIC CENTER Specimen Anatomical Collection Method Collection Time Receive d Time (Source) Location / / Volume Laterality Blood 01/19/2022 9:08 AM 2 REPAIRER AND CHECKER 10:00 AM REPAIRER AND CHECKER Kesha Pineda [employer] LAB BLOOD ORDERABLES Performing Organization Address City/[facility]/ZIP [facility] Phon e Number [facility] DIAGNOSTIC Unless otherwise noted, [address] all lab tests performed by: Division of Pathology and Laboratory Medicine [address] Magnesium Level (01/19/2022 9:08 AM REPAIRER AND CHECKER)Only the most recent of6 resultswithin the time period is included. athologist Signature Magnesium 2.2 1.6 - 2.6 [facility] mg/dL DIAGNOSTIC CENTER Specimen Anatomical Collection Method Collection Time Receive d Time (Source) Location / / Volume Laterality Blood 01/19/2022 9:08 AM 2 REPAIRER AND CHECKER 10:00 AM REPAIRER AND CHECKER Kesha TheraSimed [employer] LAB BLOOD ORDERABLES Performing Organization Address [facility] e Number [facility] DIAGNOSTIC Unless otherwise noted, [address] all lab tests performed by: Division of Pathology and Laboratory Medicine [address] (ABNORMAL) LDH (01/19/2022 9:08 AM REPAIRER AND CHECKER)Only the most recent of6 resultswithin the time period is included. athologist Signature LDH 341 (H) 135 - 214 [facility] U/L DIAGNOSTIC CENTER Comment: Specimen is hemolyzed. Results may be fa lsely elevated. Repeat test if needed. Results greater than 1651 U/L may not be reliable due to matrix effect with extended dilution as it exceeds the telemarketer's recommended limit. Caution should be exercised when interpreting such values and done in conjunction with clinical context. Specimen Anatomical Collection Method Collection Time Receive d Time (Source) Location / / Volume Laterality Blood 01/19/2022 9:08 AM 2 REPAIRER AND CHECKER 10:00 AM REPAIRER AND CHECKER Kesha TheraSimshelby PORCELAIN FINISHER LAB BLOOD ORDERABLES Performing Organization Address [facility] Phon e Number [facility] DIAGNOSTIC Unless otherwise noted, [address] all lab tests performed by: Division of Pathology and Laboratory Medicine [address] [place] Calcium Level (01/19/2022 9:08 AM REPAIRER AND CHECKER)Only the most recent of6 resultswithin the time period is included. athologist Signature Calcium Lvl 10.2 8.4 - 10.2 [facility] mg/dL DIAGNOSTIC CENTER Specimen Anatomical Collection Method Collection Time Receive d Time (Source) Location / / Volume Laterality Blood 01/19/2022 9:08 AM 2 REPAIRER AND CHECKER 10:00 AM REPAIRER AND CHECKER Kesha TheraSimshelby PORCELAIN FINISHER LAB BLOOD ORDERABLES Performing Organization Address City/[facility] Phon e Number [facility] DIAGNOSTIC Unless otherwise noted, [address] all lab tests performed by: Division of Pathology and Laboratory Medicine [address] [place] Albumin Level (01/19/2022 9:08 AM REPAIRER AND CHECKER)Only the most recent of6 resultswithin the time period is included. athologist [facility] Albumin Lvl 4.5 3.5 - 5.2 [facility] gm/dL DIAGNOSTIC CENTER Specimen Anatomical Collection Method Collection Time Receive d Time (Source) Location / / Volume Laterality Blood 01/19/2022 9:08 AM 2 REPAIRER AND CHECKER 10:00 AM REPAIRER AND CHECKER Kesha TheraSimshelby PORCELAIN FINISHER LAB BLOOD ORDERABLES Performing Organization Address [facility] Phon e Number [facility] DIAGNOSTIC Unless otherwise noted, [address] all lab tests performed by: Division of Pathology and Laboratory Medicine [address] [place] Electrolyte Panel (01/19/2022 9:08 AM REPAIRER AND CHECKER)Only the most recent of6 resultswithin the time period is included. athologist Signature Sodium Lvl 143 136 - 145 [facility] mEq/L DIAGNOSTIC CENTER Potassium Lvl 4.7 3.5 - 5.1 [facility] mEq/L DIAGNOSTIC CENTER Chloride 106 98 - 107 [facility] mEq/L DIAGNOSTIC CENTER CO2 29 22 - 29 [facility] mEq/L DIAGNOSTIC CENTER Anion Gap 8 4 - 14 [facility] mEq/L DIAGNOSTIC CENTER Specimen Anatomical Collection Method Collection Time Receive d Time (Source) Location / / Volume Laterality Blood 01/19/2022 9:08 AM 2 REPAIRER AND CHECKER 10:00 AM REPAIRER AND CHECKER Kesha TheraSimshelby PORCELAIN FINISHER LAB BLOOD ORDERABLES Performing Organization Address City/State/[facility] Phon e Number [facility] DIAGNOSTIC Unless otherwise noted, [place] [phone] [place] all lab tests performed by: Division of Pathology and Laboratory Medicine [facility] Nayeli Aguayo (ABNORMAL) .CBC (10/27/2021 8:52 AM CDT)Only the most recent of5 resultswithin the time period is included. Analysis Performed At Patho logist Time Signature WBC 7.5 4.0 - 11.0 [facility] K/uL DIAGNOSTIC CENTER RBC 3.98 (L) 4.00 - [facility] 5.50 M/uL DIAGNOSTIC CENTER Hgb 13.1 12.0 - [facility] 16.0 gm/dL DIAGNOSTIC CENTER Hct 40.1 37.0 - [facility] 47.0 % DIAGNOSTIC CENTER MCV 101 (H) 82 - 98 fL [facility] DIAGNOSTIC CENTER MCH 32.9 (H) 27.0 - [facility] 31.0 pg DIAGNOSTIC CENTER MCHC 32.7 31.0 - [facility] 36.0 gm/dL DIAGNOSTIC CENTER RDW-SD 53.4 (H) 35.1 - [facility] 46.3 NE DIAGNOSTIC CENTER RDW-CV 14.2 12.0 - [facility] 15.5 % DIAGNOSTIC CENTER Platelet count 311 140 - 440 [facility] K/uL DIAGNOSTIC CENTER MPV 10.0 4.0 - 10.[address] [facility] DIAGNOSTIC CENTER INRBC 0.0 <=0.0 % [facility] DIAGNOSTIC [place] Comment: The INRBC (instrument NRBC) value reflec ts the enumeration of nucleated red blood cells contained i n a 200uL sample of whole blood analyzed by the instrumen t. This value may differ from the NRBC value reported in a manual differential, which is based on a 100 cell differentia l. Specimen Anatomical Collection Method Collection Time Receive d Time (Source) Location / / Volume Laterality Blood 10/27/2021 8:52 AM 9:08 CDT AM CDT Raulito Hankins MD LAB BLOOD ORDERABLES Performing Organization Address City/[facility] Phon e Number [facility] DIAGNOSTIC Unless otherwise noted, [place] [phone] [place] all lab tests performed by: Division of Pathology and Laboratory Medicine [address] (ABNORMAL) Differential (10/27/2021 8:52 AM CDT)Only the most recent of5 results within the time period is included. P athologist Signature Neutrophil % 63.7 42.0 - [facility] 66.0 % DIAGNOSTIC CENTER Lymphocyte % 20.6 (L) 24.0 - [facility] 44.0 % DIAGNOSTIC CENTER Monocyte % 7.7 (H) 2.0 - 7.0 [facility] % DIAGNOSTIC CENTER Eosinophil % 6.0 (H) 1.0 - 4.0 [facility] % DIAGNOSTIC CENTER Basophil % 1.6 (H) 0.0 - 1.0 [facility] % DIAGNOSTIC CENTER IGRE % 0.4 0.0 - 0.4 [facility] % DIAGNOSTIC CENTER Comment: IGRE % count includes Metamyelo cytes, Myelocytes, and Promyelocytes. Neutrophil Abs 4.81 1.70 - 7.30 K/uL [facility] Lymphocyte Abs 1.55 1.00 - 4.80 K/uL [facility] Monocyte Abs 0.58 0.08 - 0.70 K/uL PA MD [facility] DIAGNOSTIC CENTER Eosinophil Abs 0.45 (H) 0.04 - 0.40 K/uL [facility] [place] Basophil Abs 0.12 (H) 0.00 - 0.10 K/uL PA TAL [facility] DIAGNOSTIC CENTER IG Abs 0.03 0.00 - 0.04 K/uL PA MD [facility] [place] DI[facility]IC CENTER Specimen Anatomical Collection Method Collection Time Receive d Time (Source) Location / / Volume Laterality Blood 10/27/2021 8:52 AM 9:08 CDT AM CDT Raulito Hankins MD LAB BLOOD ORDERABLES Performing Organization Address City/State/ZIP Code Phon e Number [facility] DIAGNOSTIC Unless otherwise noted, [place], [place] [address] CENTER all lab tests performed by: Division of Pathology and Laboratory Medicine [address] [place] [address] Clot Expiration Date (08/02/2021 8:42 AM CDT)Only the most recent of3 results within the time period is included. Patholo gist Method Time Signature T & S 08/05/2021 [facility] Expiration [facility] Specimen Anatomical Collection Method Collection Time Receive d Time (Source) Location / / Volume Laterality Blood 08/02/2021 8:42 AM 2 9:43 CDT AM CDT Kesha Pineda APN BLOOD BANK TEST ORDERABLES Performing Organization Address City/[facility] Phon e Number [facility] CANCER Unless otherwise noted, [address] all lab tests performed by: Division of Pathology and Laboratory Medicine [address] [place] [address] TMP Interpretation Antibody Screen Negative (08/02/2021 8:42 AM CDT)Only the most recent of3 resultswithin the time period is included. [facility] Method Time Signature TMP Auto Neg [facility] patient plasma shows no evidence of RBC alloantibodi es. Comment: MD Connie [id number] Dictated by: MD Connie CHEN Dictated Date/Time: 08.02.2021 13:44 PM CDT Transcribed Date/Time: 08.02.2021 13:44 PM CDT Electronically Signed By: MD Connie CHEN on 08.02.2021 13:44 PM Specimen Anatomical Collection Method Collection Time Receive d Time (Source) Location / / Volume Laterality Blood 08/02/2021 8:42 AM 2 9:43 CDT AM CDT Kesha Miriam JEROME BLOOD BANK TEST ORDERABLES Performing Organization Address City/[facility] Phon e Number [facility] CANCER Unless otherwise noted, [address] all lab tests performed by: Division of Pathology and Laboratory Medicine [address] [place] [address] ABORh (08/02/2021 8:42 AM CDT)Only the most recent of3 resultswithin the time period is included. P athologist Signature ABORh. B POS [facility] Specimen Anatomical Collection Method Collection Time Receive d Time (Source) Location / / Volume Laterality Blood 08/02/2021 8:42 AM 2 9:43 CDT AM CDT Kesha TheraSimshelby PORCELAIN FINISHER BLOOD BANK TEST ORDERABLES Performing Organization Address City/[facility]/ZIP Code Phon e Number [facility] CANCER Unless otherwise noted, [address] all lab tests performed by: Division of Pathology and Laboratory Medicine [address] [place] [address] [place] Antibody Screen (08/02/2021 8:42 AM CDT)Only the most recent of3 resultswithin the time period is included. P athologist Signature ABSC. Negative ABSC [facility] Specimen Anatomical Collection Method Collection Time Receive d Time (Source) Location / / Volume Laterality Blood 08/02/2021 8:42 AM 2 9:43 CDT AM CDT Kesha TheraSimshelby PORCELAIN FINISHER BLOOD BANK TEST ORDERABLES Performing Organization Address City/[facility]/ZIP Code Phon e Number [facility] Unless otherwise noted, [address] all lab tests performed by: Division of Pathology and Laboratory Medicine [address] [place] [address] Hepatitis B Core Total Antibody (04/14/2021 10:04 AM REPAIRER AND CHECKER) athologist [facility] HBc Total Negative Negative [facility] Comment: Test Performed by: [place] [id number] Issuing Operator: Lazarus Duong M.D. Ph. D.; CLIA# [id number] Specimen Anatomical Collection Method Collection Time Receive d Time (Source) Location / / Volume Laterality Blood 04/14/2021 10:04 04/14/2021 AM REPAIRER AND CHECKER 11:14 AM REPAIRER AND CHECKER Kesha TheraSimshelby PORCELAIN FINISHER LAB BLOOD ORDERABLES Performing Organization Address City/[facility]/ZIP [facility] Phon e Number [facility] CANCER Unless otherwise noted, [address] all lab tests performed by: Division of Pathology and Laboratory Medicine [facility] Nayeliindra Aguayo TMP HCV Ab Path Interp (04/14/2021 10:04 AM REPAIRER AND CHECKER) [facility] gist Method Time Signature HCV Ab Path There is NO [facility] serologic [facility] evidence of Hepatitis C virus antibody. Comment: DONNY STOREY MD - [id number] Dictated by: DONNY STOREY MD - 1200 6 Dictated Date/Time: 04.15.2021 8:[address] Transcribed Date/Time: 04.15.2021 8:06 AM REPAIRER AND CHECKER Electronically Signed By: MD Connie VELÁZQUEZ [id number] on 04.15.2021 8:06 AM C Specimen Anatomical Collection Method Collection Time Receive d Time (Source) Location / / Volume Laterality Blood 04/14/2021 10:04 04/14/2021 5:34 AM REPAIRER AND CHECKER PM REPAIRER AND CHECKER Kesha Pineda APN LAB BLOOD ORDERABLES Performing Organization Address City/State/ZIP Code Phon e Number [facility] [address] [address] Hepatitis C Virus Ab (04/14/2021 10:04 AM REPAIRER AND CHECKER) Patholo gist Method Time Signature HCVAb. Non Reactive Non Reactive [facility] [place] Comment: Antibody detection in the immunocompromi sed and immunosuppressed population may be delayed or absent entirely. Therefore serial testing, correlation with other clinical findings, and supplemental testin g (if available) should be taken into co nsideration when interpreting the results. Performed at: [facility] [address] [place] [id number] Specimen Anatomical Collection Method Collection Time Receive d Time (Source) Location / / Volume Laterality Blood 04/14/2021 10:04 04/14/2021 5:34 AM REPAIRER AND CHECKER PM REPAIRER AND CHECKER Kesha Pineda APN LAB BLOOD ORDERABLES Performing Organization Address City/State/ZIP [facility] Phon e Number [facility] [address] [address] Hepatitis B Surface Ag w/Confirm (04/14/2021 10:04 AM REPAIRER AND CHECKER) P athologist Signature Hep Bs Ag-[place] Negative Negative [facility] CANCER CENTER Comment: Test Performed by: [facility] [address] [place] [address] Issuing Operator: Lazarus Duong M.D. Ph. D.; CLIA# [id number] Specimen Anatomical Collection Method Collection Time Receive d Time (Source) Location / / Volume Laterality Blood 04/14/2021 10:04 04/14/2021 AM REPAIRER AND CHECKER 11:14 AM REPAIRER AND CHECKER Kesha TheraSimshelby PORCELAIN FINISHER LAB BLOOD ORDERABLES Performing Organization Address City/[facility]/ZIP [facility] Phon e Number [facility] Unless otherwise noted, [address] all lab tests performed by: Division of Pathology and Laboratory Medicine [address] [place] [address] [place] Hepatitis B Total Ig Core Ab (SCREENING) (anti-HBc total Ig; HBcAb total Ig) (04/14/2021 10:04 AM REPAIRER AND CHECKER) athologist [facility] HBcAb Received See Note [facility] Comment: HBcAb was sent to a reference l ab for testing. Expect results on Hepatitis B Core Total Ab within 96 hours. Specimen Anatomical Collection Method Collection Time Receive d Time (Source) Location / / Volume Laterality Blood 04/14/2021 10:04 04/14/2021 AM REPAIRER AND CHECKER 10:28 AM REPAIRER AND CHECKER Kesha TheraSimshelby PORCELAIN FINISHER LAB BLOOD ORDERABLES Performing Organization Address City/[facility] Phon e Number [facility] Unless otherwise noted, [address] all lab tests performed by: Division of Pathology and Laboratory Medicine [address] [place], [place] [address]d Research Protocol [id number] (04/14/2021 10:04 AM REPAIRER AND CHECKER) [facility] [id number] [facility] Specimen Anatomical Collection Method Collection Time Receive d Time (Source) Location / / Volume Laterality Blood 04/14/2021 10:04 04/14/2021 AM REPAIRER AND CHECKER 10:27 AM REPAIRER AND CHECKER Kesha Kalshelby PORCELAIN FINISHER RESEARCH LAB Z CODES Performing Organization Address City/[facility] Phon e Number [facility] Unless otherwise noted, [address] all lab tests performed by: Division of Pathology and Laboratory Medicine [address] [place] [address] Hepatitis B Surface Ag (04/14/2021 10:04 AM REPAIRER AND CHECKER) athologist [facility] HBsAg Received See Note [facility] Comment: HBsAg was sent to a reference l ab for testing. Expect results on Hepatitis B Surface Antigen w/ Confirm within [address] Specimen Anatomical Collection Method Collection Time Receive d Time (Source) Location / / Volume Laterality Blood 04/14/2021 10:04 04/14/2021 AM REPAIRER AND CHECKER 10:28 AM REPAIRER AND CHECKER Kesha TheraSimshelby PORCELAIN FINISHER LAB BLOOD ORDERABLES Performing Organization Address City/[facility]/ZIP Code Phon e Number [facility] CANCER Unless otherwise noted, [address] all lab tests performed by: Division of Pathology and Laboratory Medicine [address] [place] [address] Fibrinogen (04/14/2021 10:04 AM REPAIRER AND CHECKER) athologist [facility] Fibrinogen 425 214 - 503 [facility] mg/dL CANCER CENTER Specimen Anatomical Collection Method Collection Time Receive d Time (Source) Location / / Volume Laterality Blood 04/14/2021 10:04 04/14/2021 AM REPAIRER AND CHECKER 10:28 AM REPAIRER AND CHECKER Narrative [facility] - 11:06 AM REPAIRER AND CHECKER This lab cannot be scheduled at the [facility] locations due to collection/proccessing restrictions: [facility] and [facility]. Kesha TheraSimshelby PORCELAIN FINISHER LAB BLOOD ORDERABLES Performing Organization Address City/[facility] Phon e Number [facility] Unless otherwise noted, [address] all lab tests performed by: Division of Pathology and Laboratory Medicine [address] [place] [address] BHCG (04/14/2021 10:04 AM REPAIRER AND CHECKER) athologist Signature Beta HCG, 4.1 <=4.9 [facility] mIU/mL DIAGNOSTIC CENTER Comment: [facility] Reference Values: Negative: <5 mIU/mL Indeterminate: 5-25 mIU/mL Positive: >25 mIU/mL Values between 5 and 25 mIU/mL are indet erminate for . Consider confirming with repeat test in 72 hours. Values in should double every 3 days for the first 6 weeks. Specimen Anatomical Collection Method Collection Time Receive d Time (Source) Location / / Volume Laterality Blood 04/14/2021 10:04 04/14/2021 AM REPAIRER AND CHECKER 10:21 AM REPAIRER AND CHECKER Kesha TheraSimed PORCELAIN FINISHER LAB BLOOD ORDERABLES Performing Organization Address City/State/ZIP Code Phon e Number [facility] DIAGNOSTIC Unless otherwise noted, [place], [place] [address] [place] all lab tests performed by: Division of Pathology and Laboratory Medicine [address] IgA (04/14/2021 10:04 AM REPAIRER AND CHECKER) athologist Signature IgA 202 85 - 499 [facility] mg/dL CANCER CENTER Specimen Anatomical Collection Method Collection Time Receive d Time (Source) Location / / Volume Laterality Blood 04/14/2021 10:04 04/14/2021 AM REPAIRER AND CHECKER 10:41 AM REPAIRER AND CHECKER Kesha Kaled PORCELAIN FINISHER LAB BLOOD ORDERABLES Performing Organization Address City/State/ZIP Code Phon e Number [facility] CANCER Unless otherwise noted, [place] [phone] [place] all lab tests performed by: Division of Pathology and Laboratory Medicine [address] IgM (04/14/2021 10:04 AM REPAIRER AND CHECKER) athologist Signature IgM 80 35 - 242 [facility] mg/dL [facility] Specimen Anatomical Collection Method Collection Time Receive d Time (Source) Location / / Volume Laterality Blood 04/14/2021 10:04 04/14/2021 AM REPAIRER AND CHECKER 10:41 AM REPAIRER AND CHECKER Kesha Kaled PORCELAIN FINISHER LAB BLOOD ORDERABLES Performing Organization Address City/State/ZIP Code Phon e Number [facility] CANCER Unless otherwise noted, [place] [phone] [place] all lab tests performed by: Division of Pathology and Laboratory Medicine [address] IgG (04/14/2021 10:04 AM REPAIRER AND CHECKER) athologist Signature IgG 787 610 - 1,616 [facility] mg/dL [facility] Specimen Anatomical Collection Method Collection Time Receive d Time (Source) Location / / Volume Laterality Blood 04/14/2021 10:04 04/14/2021 AM REPAIRER AND CHECKER 10:41 AM REPAIRER AND CHECKER Kesha Kaled PORCELAIN FINISHER LAB BLOOD ORDERABLES Performing Organization Address City/State/ZIP Code Phon e Number [facility] CANCER Unless otherwise noted, [place] [phone] [place] all lab tests performed by: Division of Pathology and Laboratory Medicine [address] Confirm ABORh (04/14/2021 9:40 AM REPAIRER AND CHECKER) P athologist Signature ABORh Confirm. B POS [facility] CANCER CENTER Specimen Anatomical Collection Method Collection Time Receive d Time (Source) Location / / Volume Laterality Blood 04/14/2021 9:40 AM REPAIRER AND CHECKER 10:44 AM REPAIRER AND CHECKER Kesha Pineda PORCELAIN FINISHER BLOOD BANK TEST ORDERABLES Performing Organization Address City/State/ZIP Code Phon e Number [facility] CANCER Unless otherwise noted, [place] [address] [place] all lab tests performed by: Division of Pathology and Laboratory Medicine [facility] after 03/25/2021 Insurance Payer Benefit Plan / Subscriber ID Effective Dates Phone Addre ss Type Group AETNA MEDICARE AETNA MEDICARE [id number] 2021-en [address] [place] [address] Care Teams Manager Business Banking Relationship Specialty Start Date End Date Raulito Hankins MD PCP - General Leukemia 04/05/[address] [place] [id number] Mar Oglesby PCP - External Follow Up A Hematology 04/05 MD Yumiko [address] [place] [address]
--- OUTSIDE RECORDS SUMMARY | 2022-03-25 11:03 | XMS REPORT | Continuity of Care Document ---
:1935 Author Organization [facility] t Address [address] [place] [address] Care Team Providers Name Role Phone [phone] Primary Care Physician Unavailable SYSTEM, PROVIDER NOT IN Attending Clinician Unavailable GONZÁLEZ MARTINES Attending Clinician Unavailable Kesha Morton APN Attending Clinician KESHA MORTON Attending Clinician Unavailable Raulito Ventura MD Attending Clinician RAULITO VENTURA Attending Clinician Unavailable Kb Lutz Attending Clinician Guanakito Salazar Attending Clinician Unavailable Radha Meléndez PharmD Attending Clinician GONZÁLEZ MARTINES Admitting Clinician Unavailable JOSIE DOTY Admitting Clinician Unavailable Payers Payer Name Policy Type Policy Number Effective Date Expiration Date S neeru MEDICARE A B [id number] 2000 00:00:00 [employer] PPO OPEN [facility] [id number] 2013 NAP 00:00:00 Problems Condition Condition Condition Status Onset Resolution Last Treating Co mments Source Name Details Category Date Date Treatment Clinician Date 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 00:00: [place] BCR/ABL-po BCR/ABL-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 [facility] Center Hyperlipid Hyperlipid Disease Active 2021-0 U nivers emia emia 3-10 ity of 00:00: 00 [facility] Hypertensi Hypertensi Disease Active 2021-0 U nivers on on 3-10 ity of 00:00: 00 MD [facility] Center 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 3-10 [place] [facility] Osteoarthr Osteoarthr Disease Active U nivers itis itis 3-10 ity of 00:00: 00 MD [facility] Coronary Coronary Disease Active 2019-02 Unive rs arterioscl arterioscl -17 it y of erosis erosis 00:00: 00 MD [facility] Allergies, Adverse Reactions, Alerts Allergy Allergy Status Severity Reaction(s) Onset Inactive Treating Comm ents Source Name Type Date Date Clinician Meperidi Propensi Active 2019-02 Univer s ne (Pf) ty to 17 ity of adverse 00:00: [place] reaction 00 MD sonja mtz [facility] MEPERIDI DRUG Active 2019- MD RIVERS (PF) 02-21 Anderso 00:00: n 00 MEPERIDI DRUG Active 2020-1 NE (PF) 02-21 Anderso 00:00: n 00 MEPERIDI DRUG Active 2020-1 NE (PF) 02-21 Anderso 00:00: n 00 MEPERIDI DRUG Active 2020-1 NE (PF) 02-21 Anderso 00:00: n 00 MEPERIDI DRUG Active 2020-1 NE (PF) 17 Anderso 00:00: n 00 MEPERIDI DRUG Active 2020-1 NE (PF) 17 Anderso 00:00: n 00 MEPERIDI DRUG Active 2020-1 NE (PF) 02-21 Anderso 00:00: n 00 MEPERIDI DRUG Active 2020-1 NE (PF) 17 Anderso 00:00: n 00 MEPERIDI DRUG Active 2020-1 NE (PF) 17 Anderso 00:00: n 00 MEPERIDI DRUG Active 2020-1 NE (PF) 17 Anderso 00:00: n 00 MEPERIDI DRUG Active 2020-1 MD NE (PF) 02-21 Anderso 00:00: n 00 MEPERIDI DRUG Active 2020-1 MD NE (PF) 02-21 Anderso 00:00: n 00 MEPERIDI DRUG Active 2020-1 MD NE (PF) 02-21 Anderso 00:00: n 00 MEPERIDI DRUG Active 2020-1 MD NE (PF) 02-21 Anderso 00:00: n 00 MEPERIDI DRUG Active 2020-1 MD NE (PF) 02-21 Anderso 00:00: n 00 MEPERIDI DRUG Active 2020-1 MD NE (PF) 02-21 Anderso 00:00: n 00 MEPERIDI DRUG Active 2020-1 MD NE (PF) 02-21 Anderso 00:00: n 00 MEPERIDI DRUG Active 2020-1 NE (PF) 02-21 Anderso 00:00: n 00 MEPERIDI DRUG Active 2020-1 NE (PF) 02-21 Anderso 00:00: n 00 MEPERIDI DRUG Active 2020-1 MD NE (PF) 02-21 Anderso 00:00: n 00 MEPERIDI DRUG Active 2020-1 MD NE (PF) 02-21 Anderso 00:00: n 00 MEPERIDI DRUG Active 2020-1 MD NE (PF) 02-21 Anderso 00:00: n 00 MEPERIDI DRUG Active 2020-1 MD NE (PF) 02-21 Anderso 00:00: n 00 MEPERIDI DRUG Active 2020-1 MD NE (PF) 02-21 Anderso 00:00: n 00 MEPERIDI Allergy Active 2020-[address] [facility]21 [facility] Family History Family Member Diagnosis Comments Start Date Stop Date Source Natural brother Heart disease Univer [facility] MD [place] Natural daughter Gout [facility] MD [place] Natural daughter Kidney failure Univ [facility] MD [place] [facility] [facility] [place] [facility] MD [place] [facility] Natural daughter Wilm's tumor Univer [facility] MD [place] Natural father Heart attack [facility] MD [place] [facility] Natural mother [facility] Paulie Cance r [place] Social History Social Habit Start Date Stop Date Quantity Comments Source History [facility] University o f Alcohol Std [place] MD [place] [facility] History [facility] o f Alcohol Binge [place] MD Veronica londono [facility] Tobacco use and 2021-04-14 2021-04-14 Smokeless tobacco Un iversity of exposure 00:00:00 00:00:00 non-user [place] MD Gerard duque [facility] Center Alcohol intake 2021-04-14 2021-04-14 Lifetime University of 00:00:00 00:00:00 non-drinker [place] MD [place] mor[place] (finding) [facility] History SDOH 2021-04-14 2021-04-14 1 University o f Alcohol Frequency 00:00:00 00:00:00 [facility] Sex Ass[birth year] At [birth year] Universit y of 00:00:00 00:00:00 [place] MD Gerard duque [facility] Smoking Status Start Date Stop Date Source Never smoked tobacco [facility] Medications Ordered Filled Start Stop Current Ordering Indication Dosage Frequency Signature Comments Components Source Medication Medication Date Date Medication? Clinician (SIG) Name Name metoprolol 2021-02 Yes 12.5mg Take 12.5 Univers tartrate 2-15 mg by ity of (LOPRESSOR) 10:15: mouth [place] 25 mg 16 twice tablet daily. [facility] torsemide 2021-02 Yes 20mg Take 20 mg Un randy (DEMADEX) 2-15 by mouth ity of 20 mg 10:15: daily. [place] tablet 16 [facility] tolterodine 2021-02 Yes 4mg Take 4 mg U nivers (DETROL LA) 2-15 by mouth ity of 4 mg 24 hr 10:15: daily. Niki capsule 16 [facility] levothyroxi 2021-02 Yes 100ug Take 100 U nivers ne 2-15 mcg by ity of (SYNTHROID, 10:15: mouth [place] LEVOTHROID) 16 daily. 100 mcg Bravo jackson [facility] cyanocobala 2021-02 Yes 1000ug Take 1,000 Univers min 2-15 mcg by ity of (VITAMIN 10:15: mouth [place] B-12) 1000 16 daily. mcg tablet [facility] potassium 2021-02 Yes 99mg Take 99 mg Un randy 99 mg tab 2-15 by mouth ity of 10:15: daily. [place] 16 MD Bravo mtz [facility] vit 2021-02 Yes 1{tbl} Take 1 Univers C/E/Zn/kamaljit 2-15 tablet by ity of r/lutein/ze 10:15: mouth [place] axan 16 daily. (PRESERVISKrishna Cordon ON AREDS-2 n ORAL) [facility] multivit-mi 2021-02 Yes 1{tbl} Take 1 Un randy n/iron/foli 2-15 tablet by ity of c/lutein 10:15: mouth [place] (CENTRUM 16 daily. MD ROQUE Cordon WOMEN MILDRED) [facility] atorvastati 2021-02 Yes 40mg Take 40 mg Univers n (LIPITOR) 2-15 by mouth ity of 10 mg 10:13: at [place] tablet 44 bedtime. MD [facility] clopidogrel 2021-02 Yes 75mg Take 75 mg Univers (PLAVIX) 75 2-15 by mouth ity of mg tablet 10:13: daily. [place] 44 MD Bravo m[facility] aspirin 81 2021-02 Yes 81mg Take 81 mg U nivers mg EC 2-15 by mouth ity of tablet 10:13: once. [place] 44 MD Bravo [facility] co-enzyme Yes 30mg Take 30 mg Un randy Q-10 30 mg 9-22 by mouth ity o f capsule 09:44: daily. [place] 06 MD Bravo mtz [facility] IMATinib Yes Chronic 400mg Take 1 Uni vers (Gleevec) 3-10 myeloid tablet ity o f 400 mg 00:00: leukemia (400 mg) Jase as tablet 00 BCR/ABL-pos by mouth [facility] tiZAN[facility] 2019-02 Yes 4mg QD Take [address] (ZANAFLEX) 1-21 by mouth [facility] 4 MG tablet 17:04: daily. Medi jon 55 Center torsemide 2019-02 Yes 20mg QD Take [address] (DEMADEX) 1-21 by mouth [facility] 20 MG 17:04: daily. Medical tablet 55 [place] tolterodine 2019-02 Yes 1mg Q.5D Take [address] (DETROL) 1 1-21 by mouth 2 Dre es MG tablet 17:04: (two) Medical 55 times Center daily. tolterodine 2019-02 Yes 4mg QD Take [address] (DETROL LA) 1-21 by mouth Luke s 4 MG 24 hr 17:04: daily. Medic al capsule 55 Center levothyroxi 2019-02 Yes 10ug Take [address] [facility] ne 1-21 mcg by [facility] (SYNTHROID, 17:04: mouth Medic al LEVOTHROID) 55 Every Center 100 MCG morning on tablet an empty stomach. vit 2019-02 Yes QD Take by [facility] C/E/Zn/kamaljit 1-21 mouth [facility] r/lutein/ze 17:04: daily. Medi jon axan 55 Center (PRESERVISI ON AREDS-2 ORAL) cyanocobala 2019-02 Yes 1000ug QD Take 1,[address] min, 1-21 mcg by [facility] vitamin 17:04: mouth Medical B-12, 55 daily. [place] (vitamin B-12) 1000 MCG tablet potassium 2019-02 Yes 10meq QD Take [address] chloride SA 1-21 mEq by [facility] (K-DUR,KLOR 17:04: mouth Medic al -CON) 10 55 daily. Center MEQ tablet Vital Signs Vital Name Observation Time Observation Value Comments Source WEIGHT 2019-12-26 04:00:00 64.4 kg HEIGHT 2019-12-23 17:00:00 157.5 cm WEIGHT 2019-12-23 17:00:00 68.992 kg WEIGHT 2019-12-26 04:00:00 64.4 kg HEIGHT 2019-12-23 17:00:00 157.5 cm WEIGHT 2019-12-23 17:00:00 68.992 kg Systolic blood 2022-01-19 16:06:58 171 mm[Hg] Univer sity of pressure [place] [facility] Diastolic blood 2022-01-19 16:06:58 70 mm[Hg] Unive rsity of pressure Niki [facility] Heart rate 2022-01-19 16:06:47 72 /min [facility] MD [facility] Body temperature 2022-01-19 16:06:47 36.89 [place] [facility] [place] [facility] Respiratory rate 2022-01-19 16:06:47 17 /min [facility] MD [facility] Body weight 2022-01-19 16:06:47 72.2 kg [facility] MD [facility] BMI 2022-01-19 16:06:47 30.64 kg/m2 [facility] MD [facility] Oxygen saturation in 2022-01-19 16:06:47 98 /min University of Arterial blood by Niki milner Pulse oximetry Cancer Center Body height 2021-04-14 14:10:11 153.5 cm [facility] MD [facility] Procedures Procedure Date / Time Performing Clinician Source Performed HP T(9;22) BCR/ABL1 2022-01-19 15:08:00 Kesha Morton [facility] QUANTITATIVE PCR MD Paulie Gilbert [facility], BLOOD Center TOTAL PROTEIN 2022-01-19 15:08:00 Selene [facility] [place] ALBUMIN LEVEL 2022-01-19 15:08:00 Selene [facility] CALCIUM LEVEL TOTAL 2022-01-19 15:08:00 Kesha Morton [facility] PHOSPHORUS LEVEL 2022-01-19 15:08:00 Selene [facility] [place] [facility] GLUCOSE, RANDOM 2022-01-19 15:08:00 Selene [facility] [place] [facility] BLOOD UREA NITROGEN 2022-01-19 15:08:00 Kesha Morton [facility] Center SERUM CREATININE 2022-01-19 15:08:00 Selene [facility] Center URIC ACID 2022-01-19 15:08:00 Selene [facility] [place] [facility] FRACTIONATED BILIRUBIN 2022-01-19 15:08:00 [facility]OSPHATASE 2022-01-19 15:08:00 [facility] LACTATE DEHYDROGENASE 2022-01-19 15:08:00 [facility] [place] ALANINE AMINOTRANSFERASE 2022-01-19 15:08:00 [facility] ELECT[facility]OL[facility] PANEL 2022-01-19 15:08:00 Kesha Morton [facility] er [place] MAGNESIUM LEVEL 2022-01-19 15:08:00 Selene [facility] [place] [facility] ASPARTATE AMINOTRANSFERASE 2022-01-19 15:08:00 Selene [facility] [place] [facility] SERUM CREATININE 2022-01-19 15:08:00 Selene [facility] [place] [facility] .GLOMERULAR FILTRATION 2022-01-19 15:08:00 [facility] HP T(9;22) BCR/ABL1 2022-01-19 15:08:00 Selene [facility] QUANTITATIVE PCR [facility] INTERPRETATION AND REPORT Center HP MD T(9;22) BCR/ABL1 2021-10-27 13:52[facility] Can [facility] COLLECTION, BLOOD Center TOTAL PROTEIN 2021-10-27 13:52:00 Selene [facility] [place] [facility] ALBUMIN LEVEL 2021-10-27 13:52:00 Selene [facility] [place] [facility] CALCIUM LEVEL TOTAL 2021-10-27 13:52:00 Selene Kesha [facility] er Center PHOSPHORUS LEVEL 2021-10-27 13:52:00 Selene [facility] [place] [facility] GLUCOSE, RANDOM 2021-10-27 13:52:00 Selene [facility] [place] [facility] BLOOD UREA NITROGEN 2021-10-27 13:52:00 Selene Kesha [facility] SERUM CREATININE 2021-10-27 13:52:00 Selene [facility] [place] [facility] URIC ACID 2021-10-27 13:52:00 [facility] FRACTIONATED BILIRUBIN 2021-10-27 13:52:00 Kesha Morton [facility] [place] [facility] ALKALINE PHOSPHATASE 2021-10-27 13:52:00 Kesha Morton [facility] LACTATE DEHYDROGENASE 2021-10-27 13:52:00 Kesha Morton [facility] ALANINE AMINOTRANSFERASE 2021-10-27 13:52:00 [facility] ELECTROLYTE PANEL 2021-10-27 13:52:00 Dionne Mortonbeth [facility] MAGNESIUM LEVEL 2021-10-27 13:52:00 [facility] COMPLETE BLOOD COUNT W/ 2021-10-27 13:52:00 Kesha Morton [facility] DIFFERENTIAL [facility] SERUM CREATININE 2021-10-27 13:52:00 Raulito Ventura [facility] .GLOMERULAR FILTRATION 2021-10-27 13:52:00 Raulito Ventura [facility] RATE [facility] Results CBC 2021-10-27 13:52:00 Raulito Ventura [facility] MANUAL DIFFERENTIAL 2021-10-27 13:52:00 Raulito Ventura [facility] [place] [facility] HP T(9;22) BCR/ABL1 2021-10-27 13:52:00 Raulito Ventura [facility] QUANTITATIVE PCR [facility] INTERPRETATION AND REPORT Center HP T(9;22) BCR/ABL1 2021-08-02 13:42:00 Kesha Morton [facility] QUANTITATIVE PCR [facility] COLLECTION, BLOOD Center TOTAL PROTEIN 2021-08-02 13:42:00 Selene [facility] [place] [facility] ALBUMIN LEVEL 2021-08-02 13:42:00 [facility]EV[facility] TOTAL 2021-08-02 13:42:00 Kesha Morton [facility] PHOSPHORUS LEVEL 2021-08-02 13:42:00 [facility] GLUCOSE, RANDOM 2021-08-02 13:42:00 [facility]ene [facility] BLOOD UREA NITROGEN 2021-08-02 13:42:00 Kesha Morton [facility] SERUM CREATININE 2021-08-02 13:42:00 [facility] URIC ACID 2021-08-02 13:42:00 [facility] FRACTIONATED BILIRUBIN 2021-08-02 13:42:00 Kesha Morton [facility] [place] [facility] ALKALINE PHOSPHATASE 2021-08-02 13:42:00 Kesha Morton [facility] LACTATE DEHYDROGENASE 2021-08-02 13:42:00 Kesha Morton [facility] ALANINE AMINOTRANSFERASE 2021-08-02 13:42:00 [facility] ELECT[facility]OL[facility] 2021-08-02 13:42:00 Kesha Morton [facility] MAGNESIUM LEVEL 2021-08-02 13:42:00 [facility] ASPARTATE AMINOTRANSFERASE 2021-08-02 13:42:00 [facility] TYPE AND SCREEN 2021-08-02 13:42:00 [facility] COMPLETE BLOOD COUNT W/ 2021-08-02 13:42:00 Kesha Morton [facility] DIFFERENTIAL [facility] SERUM CREATININE 2021-08-02 13:42:00 Selene [facility] .GLOMERULAR FILTRATION 2021-08-02 13:42:00 Kesha Morton [facility] RATE [facility] Results CBC 2021-08-02 13:42:00 Selene [facility] MANUAL DIFFERENTIAL 2021-08-02 13:42:00 Kesha Morton [facility] ABORH 2021-08-02 13:42:00 Selene [facility] ANTIBODY SCREEN 2021-08-02 13:42:00 Selene [facility] HP MD T(9;22) BCR/ABL1 2021-08-02 13:42:00 Kesha Morton [facility] QUANTITATIVE PCR MD Paulie Gilbert [facility] INTERPRETATION AND REPORT Center TMP INTERPRETATION 2021-08-02 13:42:00 Kesha Morton [facility] ANTIBODY SCREEN NEGATIVE MD Goff [facility] CLOT EXPIRATION DATE 2021-08-02 13:42:00 Kesha Morton [facility] TOTAL PROTEIN 2021-05-10 14:12:00 Selene [facility] ALBUMIN LEVEL 2021-05-10 14:12:00 Selene [facility] CALCIUM LEVEL TOTAL 2021-05-10 14:12:00 Kesha Morton [facility] PHOSPHORUS LEVEL 2021-05-10 14:12:00 Selene [facility] [place] [facility] GLUCOSE, RANDOM 2021-05-10 14:12:00 Selene [facility] [place] [facility] BLOOD UREA NITROGEN 2021-05-10 14:12:00 Kesha Morton [facility] SERUM CREATININE 2021-05-10 14:12:00 Selene [facility] [place] [facility] URIC ACID 2021-05-10 14:12:00 Kesha Morton [facility] FRACTIONATED BILIRUBIN 2021-05-10 14:12:00 Kesha Morton [facility] ALKALINE PHOSPHATASE 2021-05-10 14:12:00 Kesha Morton [facility] LACTATE DEHYDROGENASE 2021-05-10 14:12:00 Kesha Morton [facility] ALANINE AMINOTRANSFERASE 2021-05-10 14:12:00 Kesha [facility] ELECTROLYTE PANEL 2021-05-10 14:12:00 Kesha Morton [facility] MAGNESIUM LEVEL 2021-05-10 14:12:00 [facility] ASPARTATE AMINOTRANSFERASE 2021-05-10 14:12:00 [facility] COMPLETE BLOOD COUNT W/ 2021-05-10 14:12:00 Kesha Morton [facility] DIFFERENTIAL [facility] SERUM CREATININE 2021-05-10 14:12:00 [facility] .GLOMERULAR FILTRATION 2021-05-10 14:12:00 Kesha Morton [facility] RATE [facility] Results CBC 2021-05-10 14:12:00 [facility] MANUAL DIFFERENTIAL 2021-05-10 14:12:00 Kesha Morton [facility] Center TYPE AND SCREEN 2021-04-28 13:45:00 [facility] COMPLETE BLOOD COUNT W/ 2021-04-28 13:45:[address] [facility] [place] DIFFERENTIAL [facility] TOTAL PROTEIN 2021-04-28 13:45:00 Selene [facility] ALBUMIN LEVEL 2021-04-28 13:45:00 Kesha Morton [facility] CALCIUM LEVEL TOTAL 2021-04-28 13:45:00 Kesha Morton [facility] PHOSPHORUS LEVEL 2021-04-28 13:45:00 [facility] GLUCOSE, RANDOM 2021-04-28 13:45:00 [facility] BLOOD UREA NITROGEN 2021-04-28 13:45:00 Kesha Morton [facility] SERUM CREATININE 2021-04-28 13:45:00 Selene [facility] [place] [facility] URIC ACID 2021-04-28 13:45:00 Selene [facility] [place] [facility] FRACTIONATED BILIRUBIN 2021-04-28 13:45:00 Kesha Morton [facility] [place] [facility] ALKALINE PHOSPHATASE 2021-04-28 13:45:00 Kesha Morton [facility] LACTATE DEHYDROGENASE 2021-04-28 13:45:00 Kesha Morton [facility] ALANINE AMINOTRANSFERASE 2021-04-28 13:45:00 Kesha [facility] ELECTROLYTE PANEL 2021-04-28 13:45:00 [facility] MAGNESIUM LEVEL 2021-04-28 13:45:00 [facility] ABORH 2021-04-28 13:45:00 Selene [facility] ANTIBODY SCREEN 2021-04-28 13:45:00 Selene [facility] Results CBC 2021-04-28 13:45:00 Selene [facility] [place] [facility] MANUAL DIFFERENTIAL 2021-04-28 13:45:00 [facility]ATININE 2021-04-28 13:45:00 Selene [facility] .GLOMERULAR FILTRATION 2021-04-28 13:45:00 Kesha Morton [facility] RATE [facility] CLOT EXPIRATION DATE 2021-04-28 13:45:00 Kesha Morton [facility] TMP INTERPRETATION 2021-04-28 13:45:00 Kesha Morton [facility] ANTIBODY SCREEN NEGATIVE MD Goff noemi [facility] ALANINE AMINOTRANSFERASE 2021-04-14 16:04:00 Kesha [facility] ELECTROLYTE PANEL 2021-04-14 16:04:00 Dionne Mortonbeth [facility] MAGNESIUM LEVEL 2021-04-14 16:04:00 Selene [facility] ASPARTATE AMINOTRANSFERASE 2021-04-14 16:04:00 Selene [facility] IMMUNOGLOBULIN A SERUM 2021-04-14 16:04:00 Selene [facility] IMMUNOGLOBULIN M SERUM 2021-04-14 16:04:00 Selene [facility] IMMUNOGLOBULIN G SERUM 2021-04-14 16:04:00 [facility] 2021-04-14 16:04:00 Selene [facility] FIBRINOGEN ACTIVITY 2021-04-14 16:04:00 Dionne Mortonbeth [facility] TYPE AND SCREEN 2021-04-14 16:04:00 Selene [facility] HEPATITIS B SURFACE 2021-04-14 16:04:00 Kesha Morton [facility] ANTIGEN, SERUM [facility] HEPATITIS C VIRUS ANTIBODY 2021-04-14 16:04:00 Kesha Morton [facility] COMPLETE BLOOD COUNT W/ 2021-04-14 16:04:00 Kesha [facility] DIFFERENTIAL [facility] RESEARCH PROTOCOL 2021-04-14 16:04:00 Kesha Morton [facility] [id number] [facility] HEPATITIS B CORE ANTIBODY 2021-04-14 16:04:00 [facility] SERUM CREATININE 2021-04-14 16:04:00 [facility] .GLOMERULAR FILTRATION 2021-04-14 16:04:00 Dionne Mortonbeth [facility] RATE [facility] ABORH 2021-04-14 16:04:00 Selene [facility] Results CBC 2021-04-14 16:04:00 Selene [facility] MANUAL DIFFERENTIAL 2021-04-14 16:04:00 Kesha Morton [facility] ANTIBODY SCREEN 2021-04-14 16:04:00 Selene [facility] HEPATITIS B CORE TOTAL 2021-04-14 16:04:00 [facility] HEPATITIS B SURFACE AG 2021-04-14 16:04:00 Selene [facility] W/CONFIRM [facility] TMP INTERPRETATION 2021-04-14 16:04:00 Kesha Morton [facility] ANTIBODY SCREEN NEGATIVE MD Goff [facility] CLOT EXPIRATION DATE 2021-04-14 16:04:00 Priscila Mortonzabeth [facility] HP T(9;22) BCR/ABL1 2021-04-14 16:04:00 [facility] INTERPRETATION AND REPORT Center TMP HCVAB INTERP 2021-04-14 16:04:00 Selene [facility] HP MD T(9;22) BCR/ABL1 2021-04-14 16:04:00 Selene [facility] QUANTITATIVE PCR [facility] BLOOD Center TOTAL PROTEIN 2021-04-14 16:04:00 Selene [facility] ALBUMIN LEVEL 2021-04-14 16:04:00 [facility] [facility] CALCIUM LEVEL TOTAL 2021-04-14 16:04:00 [facility] 2021-04-14 16:04:00 Selene [facility] GLUCOSE, RANDOM 2021-04-14 16:04:00 Selene [facility] BLOOD UREA NITROGEN 2021-04-14 16:04:00 Dionne [facility] SERUM CREATININE 2021-04-14 16:04:00 Selene [facility] URIC ACID 2021-04-14 16:04:00 [facility] FRACTIONATED BILIRUBIN 2021-04-14 16:04:00 Selene [facility] ALKALINE PHOSPHATASE 2021-04-14 16:04:00 Selene [facility] LACTATE DEHYDROGENASE 2021-04-14 16:04:[address] [facility] CONFIRM ABORH TYPE 2021-04-14 15:40:00 Selene Kesha [facility] Plan of Care Planned Activity Planned Date Details Comments Source Future Scheduled 2022-02-24 COVID-19 Vaccination [facility] Test 20:01:47 (#1) [code = COVID-19 MD [facility] Vaccination (#1)] Center Future Scheduled 2022-02-[address] [facility] Test 00:00:00 (12+) [code = Medical Center DEPRESSION SCREENING (12+)] Future Scheduled 2022-02-05 FALLS RISK SCREENING [facility] Test 00:00:00 [code = FALLS RISK Medical C enter SCREENING] Future Scheduled 2021-10-[address] [facility] Test 00:00:00 (#1) [code = Medical Center INFLUENZA VACCINE (#1)] Future Scheduled 2001-11-[address] [facility] Test 00:00:00 WELLNESS (YEAR 2 or Medical Center FIRST YEAR if no IPPE) [code = MEDICARE ANNUAL WELLNESS (YEAR 2 or FIRST YEAR if no IPPE)] Future Scheduled 1985-12-01 SHINGLES VACCINES ([address] [facility] Test 00:00:00 of 2) [code = Medical Center SHINGLES VACCINES (1 of 2)] Future Scheduled 1954-12-01 DTAP/TDAP/TD VACCINES [facility] Test 00:00:00 (1 - Tdap) [code = Medical C enter DTAP/TDAP/TD VACCINES (1 - Tdap)] Future Scheduled [address] [facility] Test 00:00:00 Counseling and Medical Cente r Screening (12+) [code = Tobacco Cessation Counseling and Screening (12+)] Future Scheduled 1941-12-01 PNEUMOCOCCAL 65+ YRS [facility] Test 00:00:00 (1 - PCV) [code = Medical Ce nter PNEUMOCOCCAL 65+ YRS (1 - PCV)] Future Scheduled 1936-06-01 COVID-19 VACCINE (#1) [facility] Test 00:00:00 [code = COVID-[address] VACCINE (#1)] Encounters Start End Encounter Admission Attending Care Care Encounter Source Date/Time Date/Time Type Type Clinicians Facility Department ID 2021-10-31 Outpatient SYSTEM, MARCEL ROD [id number] 15:21:51 PROVIDER Eliseo mtz 2021-04-05 Outpatient SYSTEM, MARCEL ROD [id number] 13:44:53 PROVIDER Eliseo mtz 2019-12-23 Inpatient UR [facility] SLE Cardiology [id number] [facility] 16:39:00 GONZÁLEZ FRANCIS 2022-01-19 2022-01-19 [facility] 1.2.840.1 [id number] [facility] 06:15:00 23:59:00 Encounter Kesha 76417.1.1 ity of 3.412.2.7 [place] .3.227600 MD [facility] [place] 2022-01-19 2022-01-19 Outpatient ALLY MORTON MDA [facility] [id number] [place] 06:15:00 23:59:00 KESHA Goff brennan mtz 2022-01-19 2022-01-19 Follow-Up [facility] 1.2.840.1 [id number] [facility] 12:45:00 13:00:00 Raulito 79046.1.1 ity of 3.412.2.7 [place] .3.493534 MD [facility] [place] 2022-01-19 2022-01-19 [facility] MDA [id number] [place] 08:20:56 08:20:56 RAULITO mtz 2022-01-19 2022-01-19 [facility] Selene, 1.2.840.1 [id number] [facility] 00:00:00 00:00:00 Only Kesha 82937.1.1 it y of 3.412.2.7 [place] .3.523056 MD [facility] [place] 2022-01-19 2022-01-19 Travel 1.2.840.1 1.2.825.133 [id number] [facility] 00:00:00 00:00:00 81140.1.1 350.1.13.41 ity of 3.412.2.7 [place].698 [place] .[place]14[place] 084.8 [facility] 2021-10-27 2021-10-27 [facility], 1.2.840.1 [id number] [facility] 08:00:00 23:59:00 Encounter Raulito 96302.1.1 it y of 3.412.2.7 [place] .3.249520 MD [facility] [place] 2021-10-27 2021-10-27 Outpatient EL MARCEL VENTURA MDA [id number] 08:00:00 23:59:00 RAULITO mtz 2021-10-27 2021-10-27 Office Nhi 1.2.840.1 [id number] [facility] 09:15:00 09:30:00 Visit Raulito 73591.1.1 ity of 3.412.2.7 [place] .3.337357 MD [facility] [place] 2021-10-27 2021-10-27 Outpatient MARCEL VENTURA [facility] [id number] 08:51:57 08:51:57 RAULITO mtz 2021-10-27 2021-10-27 Orders Selene, 1.2.840.1 [id number] Univers 00:00:00 00:00:00 Only Kesha 25635.1.1 it y of 3.412.2.7 [place] .3.639294 MD [facility] [place] 2021-10-27 2021-10-27 Travel 1.2.840.1 1.2.827.575 [id number] [facility] 00:00:00 00:00:00 73543.1.1 350.1.13.41 ity of 3.412.2.7 2.[place]7.3.698 [place] .3.7364[place] 084.8 MD [facility] 2021-09-01 2021-09-01 Alesia Morton 1.2.840.1 [id number] Univers 00:00:00 00:00:00 Only Kesha 54622.1.1 it y of 3.412.2.7 [place] .3.097525 MD [facility] 2021-08-02 2021-08-02 [facility] Selene, 1.2.840.1 [id number] Univers 08:00:00 23:59:00 Encounter Kesha 05377.1.1 ity of 3.412.2.7 [place] .3.994590 MD [facility] [place] 2021-08-02 2021-08-02 Outpatient ALLY MORTON MDA MDA [id number] 08:00:00 23:59:00 KESHA mtz 2021-08-02 2021-08-02 Office Nhi, 1.2.840.1 [id number] [facility] 10:00:00 10:15:00 Visit Raulito 86890.1.1 ity of 3.412.2.7 [place] .3.987651 MD [facility] [place] 2021-08-02 2021-08-02 Outpatient ALLY VENTURA MDA MDA [id number] 08:30:37 08:30:37 RAULITO mtz 2021-08-02 2021-08-02 Orders Selene, 1.2.840.1 [id number] [facility] 00:00:00 00:00:00 Only Kesha 93042.1.1 it y of 3.412.2.7 [place] .3.983260 MD [facility] [place] 2021-08-02 2021-08-02 [facility] Selene, 1.2.840.1 [id number] [facility] 00:00:00 00:00:00 Only Kesha 54801.1.1 it y of 3.412.2.7 [place] .3.453910 MD [facility] [place] 2021-08-02 2021-08-02 Travel 1.2.840.1 1.2.924.074 [id number] [facility] 00:00:00 00:00:00 09009.1.1 350.1.13.41 ity of 3.412.2.7 [place]3.698 [place] .[place].534355 084.8 MD [facility] [place] 2021-05-10 2021-05-10 Outpatient ALLY MORTON MDA MDA [id number] 08:45:00 23:59:00 KESHA mtz 2021-05-10 2021-05-10 [facility] Selene, 1.2.840.1 [id number] Univers 08:45:00 23:59:00 Encounter Kesha 00719.1.1 ity of 3.412.2.7 [place] .3.152616 MD [facility] [place] 2021-05-10 2021-05-10 Office Nhi, 1.2.840.1 [id number] Univers 10:45:00 11:00:00 Visit Raulito 59859.1.1 ity of 3.412.2.7 [place] .3.707289 MD [facility] [place] 2021-05-10 2021-05-10 Outpatient ALLY VENTURA MDA [facility] [id number] 08:58:01 08:58:01 RAULITO mtz 2021-05-10 2021-05-10 [facility] Selene 1.2.840.1 [id number] Univers 00:00:00 00:00:00 Only Kesha 96060.1.1 it y of 3.412.2.7 [place] .3.971788 MD [facility] [place] 2021-05-10 2021-05-10 Travel 1.2.840.1 1.2.687.230 [id number] Univers 00:00:00 00:00:00 58927.1.1 350.1.13.41 ity of 3.412.2.7 [place]7.3.698 [place] .3.857059 084.8 MD [facility] [place] 2021-04-28 2021-04-28 Outpatient ALLY MORTON MDA MDA [id number] 08:39:54 23:59:00 KESHA mtz 2021-04-28 2021-04-28 [facility] Selene, 1.2.840.1 [id number] [facility] 08:39:54 23:59:00 Encounter Kesha 48709.1.1 ity of 3.412.2.7 [place] .3.065788 MD [facility] [place] 2021-04-28 2021-04-28 Office Kesha Morton 1.2.840.1 [id number] [facility] 10:45:00 11:00:00 Visit Kb Goyal 32943.1.1 ity of 3.412.2.7 [place] .3.252951 MD Vasquez8 [facility] [place] 2021-04-28 2021-04-28 Outpatient ALLY MORTON [facility] MDA [id number] MT 08:40:10 08:40:10 KESHA Goff [facility] 2021-04-28 2021-04-28 [facility] 1.2.840.1 1.2.056.410 [id number] [facility] 00:00:00 00:00:00 92946.1.1 350.1.13.41 ity of 3.412.2.7 [place]7.3.698 [place] .3.1823[place] 084.8 MD Vasquez8 [facility] [place] 2021-04-14 2021-04-14 Outpatient SELENE [facility] MDA [id number] MT 09:35:10 23:59:00 KESHA mtz 2021-04-14 2021-04-14 [facility] 1.2.840.1 [id number] [facility] 09:35:10 23:59:00 Encounter Kesha 18338.1.1 ity of 3.412.2.7 [place] .3.736479 MD [facility] [place] 2021-04-14 2021-04-14 [facility] 1.2.840.1 [id number] [facility] 08:00:00 15:09:31 Visit Raulito 66617.1.1 ity of 3.412.2.7 [place] .3.187611 MD Vasquez8 [facility] [place] 2021-04-14 2021-04-14 Outpatient MARCEL VENTURA MDA [id number] 07:52:46 15:09:31 RAULITO mtz 2021-04-14 2021-04-14 Outpatient MARCEL VENTURA MDA [id number] 07:22:16 07:22:21 RAULITO mtz 2021-04-14 2021-04-14 NPR Nhi, 1.2.840.1 [id number] Univers 07:00:00 07:22:21 Raulito 04168.1.1 ity of 3.412.2.7 [place] .3.875359 MD [facility] [place] 2021-04-14 2021-04-14 Documentat Marie, 1.2.840.1 [id number] Univers 00:00:00 00:00:00 ion [place] U 20310.1.1 i ty of 3.412.2.7 [place] .3.171846 MD [facility] [place] 2021-04-14 2021-04-14 Orders Rika, 1.2.840.1 [id number] Univers 00:00:00 00:00:00 Only Radha R 60767.1.1 it y of 3.412.2.7 [place] .3.094275 MD [facility] [place] 2021-04-14 2021-04-14 Orders Wilnershelby, 1.2.840.1 [id number] Univers 00:00:00 00:00:00 Only Kesha 02003.1.1 it y of 3.412.2.7 [place] .3.613065 MD [facility] [place] 2021-04-14 2021-04-14 Travel 1.2.840.1 1.2.082.277 [id number] Univers 00:00:00 00:00:00 23755.1.1 350.1.13.41 ity of 3.412.2.7 2.[place]7.3.698 [place] .3.003381 084.8 MD [facility] [place] 2021-04-11 2021-04-11 Travel 1.2.840.1 1.2.744.203 [id number] Univers 00:00:00 00:00:00 71859.1.1 350.1.13.41 ity of 3.412.2.7 2.2[place]7.3.698 [place] .3.898109 084.8 .8 [facility] [place] 2021-04-05 2021-04-05 Travel 1.2.840.1 1.2.123.644 [id number] Univers 00:00:00 00:00:00 65859.1.1 350.1.13.41 ity of 3.412.2.7 2.2.7.3.698 [place] .3.888461 084.8 .8 [facility] [place] Results Test Description Test Time Test Comments Results Result Comments Source MD vee(9;22) BCR/ABL1 Quantitative PCR Collection, Blood 01-19 16:50:22 Test Item Value Reference Range Interpretation Comme nts Molecular Diagnostics (Received) (test code = 8400) Yes [facility] CenterFractionated Dihngppxf5927-77-13 16:24:52 Test Item Value Reference Range Interpretation Comments Bili Total (test 0.4 mg/dL <=1.2 Indocyanine Green (ICG) code = 1974-) may cause fal sely elevated biliru bin results. Total and direct bilirubin must not be measured from s amples containing indo cyanine green. False el evation of total bilirubin can be seen in patient s with IgG concentrations above 28 g/L. Bili Direct (test <=0.3 Indocyanin e Green (ICG) code = 1967-) may cause fal sely elevated biliru bin results. Total and direct bilirubin must not be measured from s amples containing indo cyanine green. Bili Indirect (test See Note 0.0-0.9 Unable t o calculate code = 1970-) Indirect Bili hubbard result due to some par ameters are outside rep ortable range [facility] CenterGlucose, Sbmqgi7524-00-62 16:24:51 Test Item Value Reference Range Interpretation Comments Glucose Random (test 148 mg/dL 70-199 Effecti ve 09/01/15, the code = 2345-7) glucose refer ence intervals have been updated based o n [place] [employer] penny delines (Standards of M edical Care in Diabete s 2016. Diabetes Care 2 016; 39: S13-S22).Fastin g blood glucose:Normal: 70-99 mg/dLImpaired f asting glucose (increa sed risk for diabetes or pre-diabetes): 100-125 mg/dLDiabetes m ellitus: >/=126 mg/dL Ra ndom blood glucose:N ormal: 70-199 mg/dLNot e: Random glucose >100 mg /dL is associated with increased risk for diabetes [facility] CenterUric Geoo4668-55-38 16:24:50 Test Item Value Reference Range Interpretation Comments Uric Acid (test code = 3084-1) 5.3 mg/dL 2.4-5.7 [facility] CenterTotal [id number] 16:24:49 Test Item Value Reference Range Interpretation Comments Total Protein (test code = 2885-2) 7.2 g/dL 6.4-8.3 [facility] CenterPhosphorus [id number] 16:24:48 Test Item Value Reference Range Interpretation Comments Phosphorus (test code = 2777-1) 3.5 mg/dL 2.5-4.5 [facility] CenterCalcium [id number] 16:24:47 Test Item Value Reference Range Interpretation Comments Calcium Lvl (test code = 85791-5) 10.2 mg/dL 8.4-10.2 [facility] CenterAlanine Waarzhwpgotgizqx0023-55-74 16:24:46 Test Item Value Reference Range Interpretation Comments ALT (test code = 1742-6) 19 U/L <=33 [facility] CenterBUN2022-12-15 16:24:45 Test Item Value Reference Range Interpretation Comments BUN (test code = 3094-0) 21 mg/dL 6-23 [facility] CenterLDH2022-12-15 16:24:09 Test Item Value Reference Range Interpretation Comments LDH (test code = 341 U/L 135-214 [place] [address]-5) hemolyzed. Resu lts may be falsely elevated. Repea t test if needed.Resul ts greater than 16 51 U/L may not be reli able due to matrix e ffect with extended dilution as it exceeds the sample taker operator's recommended sanchez it. Caution should be exercised when interpreting cohen ch values and done in conjunction wit h clinical contex t. Lab Interpretation (test Abnormal code = 77673-9) [facility] CenterElectrolyte Hbwyo1753-53-17 16:23:11 Test Item Value Reference Range Interpretation Comments Sodium Lvl (test code = 143 See_Comment [Au tomated message] The 2950-03) system which ge nerated this result tra nsmitted reference range : 136 - 145 mEq/L. The reference range was not u sed to interpret this result as normal/abnormal . Potassium Lvl (test 4.7 See_Comment [Automa cynthia message] The code = 2823-3) system which generated this result tra nsmitted reference range : 3.5 - 5.1 mEq/L. The reference range was not u sed to interpret this result as normal/abnormal . Chloride (test code = 106 See_Comment [Auto mated message] The ) system which ge nerated this result tra nsmitted reference range : 98 - 107 mEq/L. The refe rence range was not u sed to interpret this result as normal/abnormal . CO2 (test code = 29 See_Comment [Automated message] The 2027-10) system which ge nerated this result tra nsmitted reference range : 22 - 29 mEq/L. The refe rence range was not u sed to interpret this result as normal/abnormal . Anion Gap (test code = 8 See_Comment [Aut omated message] The ) system which ge nerated this result tra nsmitted reference range : 4 - 14 mEq/L. The refe rence range was not u sed to interpret this result as normal/abnormal . [facility] CenterGlomerular Filtration Rate 2022-01-19 16:23:09 Test Item Value Reference Range Interpretation Comments eGFR (test code = 46 See_Comment [place] [address]) calculated with the 2020 CKD-EPI cr eatinine equation using creatinine, pat ient's age, and sex fo r adults 18 years of age and older. Other fa ctors, especially musc le mass, may affect accu racy and need to be considered.Acco rding to the Kidney Dise ase: Improving Globa l Outcomes (KDIGO ) CKD Work Group 2012 Clinical Practi ce Guideline, control engineer keith kidney disease (CKD) is defined as the abnormalities o f kidney structure or fu nction, present for mor e than 3 months, with implications fo r health. CKD dorina uld be classified by terry hammond, GFR category, a nd albuminuria cat egory. KDIGO guideline s provide the fol lowing GFR categoriesS tage Description GFR mL/min/1.73 m2G 1* Normal or high >= 90G2* Mildly decrease d 60-89G3a Mildly to moderately decr eased 45-59G3b Modera tely to severely decrea sed 30-44G4 Severel y decreased 15-29 G5 Kidney failure <15*In the absence of evidence of kidney damag e, neither G1 nor G2 fulfill criteri a for CKD. [Automated message] The sy stem which generated this result transmit cynthia reference range : >=60 mL/min/1.73 sq. m. The reference range was not used to interpr et this result as normal/abnormal . Lab Interpretation Abnormal (test code = 13978-7) [facility] CenterMagnesium [id number] 16:23:08 Test Item Value Reference Range Interpretation Comments Magnesium (test code = 69340-6) 2.2 mg/dL 1.6-2.6 [facility] CenterAlkaline Lktwwfvqwxi5197-41-70 16:23:06 Test Item Value Reference Range Interpretation Comments Alk Phos (test code = 6768-6) 42 U/L 35-104 [facility] CenterAlbumin Rkdjo7060-02-02 16:23:05 Test Item Value Reference Range Interpretation Comments Albumin Lvl (test code 4.5 See_Comment [Aut omated message] The = 1751-7) system which ge nerated this result tra nsmitted reference range : 3.5 - 5.2 gm/dL. The refe rence range was not used to interpret this result as normal/abnormal . [facility] CenterAspartate Aminotransferase 2022-01-19 16:23:04 Test Item Value Reference Range Interpretation Comments AST (test code = 1920-8) 27 U/L <=32 [facility].Serum Gudohzxkob3437-02-40 16:23:02 Test Item Value Reference Range Interpretation Comments Creatinine (test code = 2160-0) 1.15 mg/dL 0.51-0.95 H Lab Interpretation (test code = Abnormal 63441-2) [facility] CenterDifferential2022-09-22 14:22:51 Test Item Value Reference Range Interpretation Comments Neutrophil % (test code = 63.7 % 42.0-66.0 770-8) Lymphocyte % (test code = 20.6 % 24.0-44.0 L 736-9) Monocyte % (test code = 7.7 % 2.0-7.0 H 5905-5) Eosinophil % (test code = 6.0 % 1.0-4.0 H 713-8) Basophil % (test code = 1.6 % 0.0-1.0 H 706-2) IGRE % (test code = 0.4 % 0.0-0.4 IGRE % c ount 86522-6) includes Metamyelocytes, Myelocytes, and Promyelocytes. Neutrophil Abs (test code 4.81 K/uL 1.70-7.30 = 751-8) Lymphocyte Abs (test code 1.55 K/uL 1.00-4.80 = 731-0) Monocyte Abs (test code = 0.58 K/uL 0.08-0.70 742-7) Eosinophil Abs (test code 0.45 K/uL 0.04-0.40 H = 711-2) Basophil Abs (test code = 0.12 K/uL 0.00-0.10 H 704-7) IG Abs (test code = 0.03 K/uL 0.00-0.04 34165-6) Lab Interpretation (test Abnormal code = 40123-9) [facility] [place].DVI3226-21-72 14:22:45 Test Item Value Reference Range Interpretation Comments WBC (test code = 7.5 K/uL 4.0-11.0 6690-2) RBC (test code = 789-8) 3.98 See_Comment L [Au tomated message] The system [employer] generated this result transmitted ref erence range: 4.00 - 5 .50 M/uL. The refer ence range was not u sed to interpret this result as normal/abnor mal. Hgb (test code = 718-7) 13.1 See_Comment [Au tomated message] The system [employer] generated this result transmitted ref erence range: 12.0 - 1 6.0 gm/dL. The refe rence range was not u sed to interpret this result as normal/abnor mal. Hct (test code = 40.1 % 37.0-47.0 4544-3) MCV (test code = 787-2) 101 fL 82-98 H MCH (test code = 785-6) 32.9 pg 27.0-31.0 H MCHC (test code = 32.7 See_Comment [Automate d message] 786-4) The system [employer] generated this result transmitted ref erence range: 31.0 - 3 6.0 gm/dL. The refe rence range was not u sed to interpret this result as normal/abnor mal. RDW-SD (test code = 53.4 fL 35.1-46.3 H 90735-7) RDW-CV (test code = 14.2 % 12.0-15.5 788-0) Platelet count (test 311 K/uL 140-440 code = 777-3) MPV (test code = 10.0 fL 4.0-10.4 60348-4) INRBC (test code = 0.0 % <=0.0 The INRBC (instrument 73785-3) NRBC) value ref lects the enumeration of nucleated red b lood cells contained in a 200uL sampleof whole blood analyzed by the instrument. Thi s value maydiffer from the NRBC value repo rted in a manual differential,wh ich is based on a 100 cell differential. Lab Interpretation Abnormal (test code = 91606-9) [facility] Cancer CenterTMP Interpretation Antibody Screen Wdhnyoht7171-63-94 18:44:14 Test Item Value Reference Range Interpretation Comments TMP Auto Neg At the present ABSC Interp time, patient (test code = plasma shows no ____FLEUR BRANDYN AIKEN MD - 5135) evidence of RBC 62076Nrczank d by: LAXMI alloantibodies. MIN MD NELLI - 38509Cklzotuj D ate/Time: 08.02.2021 13:4 4 PM CDT Transcribed Aristides e/Time: 08.02.2021 13:4 4 PM CDTElectronical ly Signed By: LAXMI MANJARREZ MD - [id number] on 2021 13:44 PM [facility] CenterABORh2022-06-28 17:43:52 Test Item Value Reference Range Interpretation Comments ABORh. (test code = 882-1) B POS [facility] CenterClot Expiration [id number] 17:43:50 Test Item Value Reference Range Interpretation Comments T & S Expiration (test code = 08/05/2021 5318) [facility] CenterAntibody Qhxeky5799-83-07 17:41:22 Test Item Value Reference Range Interpretation Comments ABSC. (test code = 890-4) Negative ABSC [facility] CenterHepatitis B Core Total Antibody 2021-04-16 03:37:46 Test Item Value Reference Range Interpretation Comments HBc Total Ab-Pratts Negative Negative Test Perf ormed by:Pratts (test code = [facility] - 61105-4) Edgar [employer] Qwzqj2755 [facility] [place] [id number] Director: Femi Duong M.D. Ph. D.; CLIA# [id number] [facility] CenterHewest [facility] B Surface Ag w/Confirm 2021-04-16 03:20:02 Test Item Value Reference Range Interpretation Comments Hep Bs Ag-Pratts Negative Negative Test Perform ed by:Pratts (test code = [facility] - 5196-1) [employer] Jpmgm5905 [facility] [place] [id number] Director: Femi Duong M.D. Ph. D.; CLIA# [id number] [facility] CenterTMP HCV Ab Path Jbycih0075-66-78 14:06:02 Test Item Value Reference Range Interpretation Comments HCV Ab Path There is NO Interp (test serologic code = 8923) evidence of ____DONNY ARNETT MD Hepatitis C - 12876Ocfuotix by: virus antibody. DONNY JOAQUIN MD - 50340Unkllwpn D ate/Time: 04.15.2021 8:06 AM STUDIO PRODUCER Transcribed Aristides e/Time: 04.15.2021 8:06 AM CSTElectronical ly Signed By: DONNY ARNETT MD - [id number] on 04.05 8:06 AM C [facility] CenterHepatitis C Virus Oj4516-25-38 02:37:28 Test Item Value Reference Range Interpretation Comments HCVAb. (test Non Reactive Non Reactive Antibody detect ion in the code = 5762) immunocompromis ed and immunosuppresse d population may be delayed or absent entirely. There fore serial testing, correl ation with other clinical findings, and supplementa l testing (if available) should be taken into cons ideration when interpreti ng the results.Perform ed at:[facility] Blood Donor Qv[address] [place], [place] [address] [facility] CenterIgM2022-03-10 20:43:25 Test Item Value Reference Range Interpretation Comments IgM (test code = 6023) 80 mg/dL 35-242 [facility] CenterIgG2022-03-10 20:43:24 Test Item Value Reference Range Interpretation Comments IgG (test code = 6001) 787 mg/dL 610-1616 [facility] CenterIgA2022-03-10 20:43:23 Test Item Value Reference Range Interpretation Comments IgA (test code = 5992) 202 mg/dL 85-499 [facility] CenterConfirm [id number] 19:47:20 Test Item Value Reference Range Interpretation Comments ABORh Confirm. (test code = 882-1) B POS [facility] CenterHepatitis B Surface [id number] 17:14:05 Test Item Value Reference Range Interpretation Comments HBsAg Received (test See Note HBsAg w as sent to a code = 33500) reference lab for testing. Expect results on Hepatitis B Surface Antigen w/ Conf irm within 96 hours . [facility] (SCREENING) (anti-HBc total Ig; HBcAb total Ig)2021-04-14 17:14:04 Test Item Value Reference Range Interpretation Comments HBcAb Received (test See Note HBcAb w as sent to a code = 45673) reference lab for testing. Expect results on Hepatitis B Core Total Ab within 96 hours. [facility] Center[facility]2022-[facility]-10 17:06:43 Test Item Value Reference Range Interpretation Comments Fibrinogen (test code = 425 mg/dL 591-080 4351-7) ZARA (test code = ZARA) This lab cannot be scheduled at the following locations due to collection/proccessing restrictions: [facility] and [facility]. [facility] [id number] 16:57:54 Test Item Value Reference Range Interpretation Comments Beta HCG, 4.1 See_Comment Pregnanc y BHCG Reference (test code = 36416-2) Values :Negative: <5 mIU/mLIndetermi ji: 5-25 mIU/mLPositive: >25 mIU/mL Values between 5 and 25 mIU/mL are inde terminate for . Consider confirming with repeat test in 72 hour s. Values in sh ould double every 3 days fo r the first 6 weeks. [Autom ated message] The sy stem which generated this result transmitted ref erence range: <=4.9 mI U/mL. The reference range was not used to interpr et this result as petr l/abnormal. [facility] CenterResearch Protocol [id number] 2021-04-14 16:53:57 Test Item Value Reference Range Interpretation Comments Research Prot (test code = 7189) [id number] [facility] CenterPO[facility] [id number] 11:44:00 Test Item Value Reference Range Interpretation Comments POC-GLUCOSE METER 135 mg/dL 70-110 H : TESTED A T [facility] [address] (BEAKER) ([place], [address]: code = 1538) Pipeline Engineer/Techni guadalupe ID = [id number] for AMINATA MAJANO IN POCT-GLUCOSE [id number] 07:43:00 Test Item Value Reference Range Interpretation Comments POC-GLUCOSE METER 113 mg/dL 70-110 H : TESTED A T [facility] [address] (BEAKER) ([place], [address]: code = 1538) Pipeline Engineer/Techni guadalupe ID = [id number] for AMINATA MAJANO IN BASIC METABOLIC [id number] 05:55:00 Test Item Value Reference Range Interpretation Comments SODIUM (BEAKER) 136 meq/L 136-145 (test code = 381) POTASSIUM (BEAKER) 4.3 meq/L 3.5-5.1 (test code = 379) CHLORIDE (BEAKER) 103 meq/L 98-107 (test code = 382) CO2 (BEAKER) (test 23 meq/L 22-29 code = 355) BLOOD UREA NITROGEN 14 mg/dL 7-21 (BEAKER) (test code = 354) CREATININE (BEAKER) 0.85 mg/dL 0.57-1.25 (test code = 358) GLUCOSE RANDOM 130 mg/dL 70-105 H (BEAKER) (test code = 652) CALCIUM (BEAKER) 9.3 mg/dL 8.4-10.2 (test code = 697) EGFR (BEAKER) (test 64 mL/min/1.73 ESTIMA CYNTHIA GFR IS code = 1092) sq m NOT ACCURATE CREATININE CLEARANCE IN PREDICTING GLOMERULAR FILTRATION RATE . ESTIMATED GFR I S NOT APPLICABLE FOR DIALYSIS PATIEN TS. Pipeline Engineer ID - TERESA MC (HEMOGRAM ONLY)2019-12-27 05:38:00 Test Item Value Reference [...] 0-0 (BEAKER) (test code = 413) POCT-GLUCOSE [id number] 21:02:00 Test Item Value Reference Range Interpretation Comments POC-GLUCOSE METER 206 mg/dL 70-110 H : Notified RN/MD: (AKER) (test code = TESTED AT [place] [address] 1538) [facility], [address]: Pipeline Engineer/Techni guadalupe ID = [id number] for ALICE FAM [id number] 14:59:00 Test Item Value Reference Range Interpretation Comments ACTIVATED CLOTTING TIME 147 sec : 74 -137 seconds, (BEAKER) (test code = Baseli ne: TESTED AT [facility]) [address], [facility] 30: Pipeline Engineer/Techni guadalupe ID = [id number] for GO NZALEZ, MIK [id number] 14:12:00 Test Item Value Reference Range Interpretation Comments ACTIVATED CLOTTING TIME 158 sec : 74 -137 seconds, (BEAKER) (test code = Baseli ne: TESTED AT 441) [address], [facility] 30: Pipeline Engineer/Techni guadalupe ID = [id number] for GO NZALEZ, MIK [id number] 09:18:00 Test Item Value Reference Range Interpretation Comments ACTIVATED CLOTTING TIME 362 sec : 74 -137 seconds, (BEAKER) (test code = Baseli ne: TESTED AT 441) [address], [facility] 30: Pipeline Engineer/Techni guadalupe ID = [id number] for CO NDE, KASSY [id number] 09:18:00 Test Item Value Reference Range Interpretation Comments ACTIVATED CLOTTING TIME 246 sec : 74 -137 seconds, (BEAKER) (test code = Baseli ne: TESTED AT [facility]) [address], [facility] 30: Pipeline Engineer/Techni guadalupe ID = [id number] for CO NDE, KASSY SARS-COV2/RT-PCR ([facility])2019-12-26 08:30:00 Test Item Value Reference Range Interpretation Comments SARS-COV2/RT-PCR (test Negative Not Detected, Negative, code = 6727821) See external report for linked test SARS-COV-2 PERFORMING LAB [facility] (test code = 4230193) Negative result for this test determines that [...] individuals suspected of COVID-19 by their healthcare provider.This test [...] justifying the authorization of the emergency use ofin vitro diagnostic tests for detection and/or diagnosis of COVID-19 is terminated under Section 564(b)(2) of the Act or the EUA is revoked under Section 564(g) of the Act.Testing was performed using the Virk SARS-CoV-2 assay.Fact Sheet for Healthcare Providers:https://www.HubHuman.virk/akosua/RT_SAR R-OvX-2_THM_Hjjc_Slrmf_90-050800.pdfFact Sheet for Healthcare Patients:https://www.molecular.virk/s al/WZ_STPJ-GrG-4_Xjxnmax_Dtmh_Llzqh_WV_36-769026N6.pdfPerforming Laboratory:[facility] [place] [address] [id number] 08:27:00 Test Item Value Reference Range Interpretation Comments ACTIVATED CLOTTING TIME 312 sec : 74 -137 seconds, (BEAKER) (test code = Baseli ne: TESTED AT 441) [facility] [address] [facility], [address]: Pipeline Engineer/Techni guadalupe ID = [id number] for CO NDE, KASSY [id number] 08:26:00 Test Item Value Reference Range Interpretation Comments ACTIVATED CLOTTING TIME 235 sec : 74 -137 seconds, (BEAKER) (test code = Baseli ne: TESTED AT 441) [facility] [address] [facility], [address] 30: Pipeline Engineer/Techni guadalupe ID = [id number] for CO NDE, KASSY CBC W/PLT COUNT & AUTO [id number] 05:54:00 Test Item Value Reference Range Interpretation [...] 2156) HYPERSEGMENTATION Present (CELLAVISION)(BEAKER) (test code = 1195) ARTIFACT (CELLAVISION)(BEAKER) Present (test code = 3432) PLATELET CONCENTRATION Adequate (CELLAVISION)(BEAKER) (test code = 3438) Pipeline Engineer ID - Blake comments: Slide comments:BASIC METABOLIC [id number] 04:52:00 Test Item Value Reference Range Interpretation [...] 697) EGFR (BEAKER) (test 59 mL/min/1.73 ESTIMA CYNTHIA GFR IS code = 1092) sq m NOT ACCURATE CREATININE CLEARANCE IN PREDICTING GLOMERULAR FILTRATION RATE . ESTIMATED GFR I S NOT APPLICABLE FOR DIALYSIS PATIEN TS. Pipeline Engineer ID - [id number] 04:52:00 Test Item Value Reference Range Interpretation Comments MAGNESIUM (BEAKER) (test code = 2.0 mg/dL 1.6-2.6 627) Pipeline Engineer ID - EDASIPOCT-GLUCOSE [id number] 22:16:00 Test Item Value Reference Range Interpretation Comments POC-GLUCOSE METER 131 mg/dL 70-110 H : TESTED A T [facility] [address] (BEAKER) (test code = [facility], 153) [address]: Pipeline Engineer/Techni guadalupe ID = [id number] for TEGAN MURRELL POCT-GLUCOSE [id number] 16:05:00 Test Item Value Reference Range Interpretation Comments POC-GLUCOSE METER 133 mg/dL 70-110 H : TESTED A T [facility] [address] (BEAKER) (test code = [facility], 153) [address]: Pipeline Engineer/Techni guadalupe ID = [id number] for DEONTE DYERJAREKRONALD, FRANCIS POCT-GLUCOSE [id number] 11:05:00 Test Item Value Reference Range Interpretation Comments POC-GLUCOSE METER 127 mg/dL 70-110 H : TESTED A T [facility] [address] (BEAKER) (test code = [place], 1538) [address]: Pipeline Engineer/Techni guadalupe ID = [id number] for FRANCIS SIMMONS POCT-GLUCOSE [id number] 07:26:00 Test Item Value Reference Range Interpretation Comments POC-GLUCOSE METER 121 mg/dL 70-110 H : TESTED A T [facility] [address] (BEAKER) (test code = [facility], 1538) [address]: Pipeline Engineer/Techni guadalupe ID = [id number] for FRANCIS SIMMONS BASIC METABOLIC [id number] 06:38:00 Test Item Value Reference Range Interpretation [...] 697) EGFR (BEAKER) (test 65 mL/min/1.73 ESTIMA CYNTHIA GFR IS code = 1092) sq m NOT ACCURATE CREATININE CLEARANCE IN PREDICTING GLOMERULAR FILTRATION RATE . ESTIMATED GFR I S NOT APPLICABLE FOR DIALYSIS PATIEN TS. Pipeline Engineer ID - PIAYA LCBC (HEMOGRAM ONLY)2019-12-25 05:51:00 [...] RED CELL DISTRIBUTION WIDTH 14.3 % 11.7-14.4 (BEAKER) (test code = 412) PLATELET COUNT (BEAKER) (test 305 K/CU MM 150-450 code = 756) MEAN PLATELET VOLUME (BEAKER) 10.4 fL 9.4-12.3 (test code = 754) NUCLEATED RED BLOOD CELLS 0 /100 WBC 0-0 (BEAKER) (test code = 413) POCT-GLUCOSE [id number] 00:43:00 Test Item Value Reference Range Interpretation Comments POC-GLUCOSE METER 136 mg/dL 70-110 H : TESTED A T [facility] [address] (BEAKER) (test code = [facility], [facility]) [address]: Pipeline Engineer/Techni guadalupe ID = [id number] for AR BREANN, TEGAN POCT-GLUCOSE [id number] 17:42:00 Test Item Value Reference Range Interpretation Comments POC-GLUCOSE METER 122 mg/dL 70-110 H : TESTED A T [facility] [address] (BEAKER) (test code = [facility], [facility]) [address]: Pipeline Engineer/Techni guadalupe ID = [id number] for AC COS, KAYLEY POCT-GLUCOSE [id number] 16:49:00 Test Item Value Reference Range Interpretation Comments POC-GLUCOSE METER 117 mg/dL 70-110 H : TESTED A T [facility] [address] (BEAKER) (test code = [facility], 153) [address]: Pipeline Engineer/Techni guadalupe ID = [id number] for BA TTAD, KELSI POCT-GLUCOSE [id number] 14:00:00 Test Item Value Reference Range Interpretation Comments POC-GLUCOSE METER 122 mg/dL 70-110 H : [facility] T [facility] (test code = [facility], 153) [address]: Pipeline Engineer/Techni guadalupe ID = [id number] for SHARON MONAE [id number] 12:50:00 Test Item Value Reference Range Interpretation Comments ACTIVATED CLOTTING TIME 279 sec : 74 -137 seconds, (BEAKER) (test code = Baseli ne: TESTED AT 441) [address], [address]: Pipeline Engineer/Techni guadalupe ID = [id number] for IDRY, TOBI [id number] 11:55:00 Test Item Value Reference Range Interpretation Comments ACTIVATED CLOTTING TIME 285 sec : 74 -137 seconds, (BEAKER) (test code = Baseli ne: TESTED AT 441) [address], [facility] 30: Pipeline Engineer/Techni guadalupe ID = [id number] for IDRY, TOBI [id number] 11:27:00 Test Item Value Reference Range Interpretation Comments ACTIVATED CLOTTING TIME 318 sec : 74 -137 seconds, (BEAKER) (test code = Baseli ne: TESTED AT [facility]) [address], [address]: Pipeline Engineer/Techni guadalupe ID = [id number] for IDRY, TOBI [id number] 10:52:00 Test Item Value Reference Range Interpretation Comments ACTIVATED CLOTTING TIME 268 sec : 74 -137 seconds, (BEAKER) (test code = Baseli ne: TESTED AT 441) [address], [address]: Pipeline Engineer/Techni guadalupe ID = [id number] for IDRY, TOBI [id number] 10:27:00 Test Item Value Reference Range Interpretation Comments ACTIVATED CLOTTING TIME 263 sec : 74 -137 seconds, (BEAKER) (test code = Baseli ne: TESTED AT 441) [address], [facility] 30: Pipeline Engineer/Techni guadalupe ID = [id number] for IDRY, TOBI POCT-GLUCOSE [id number] 07:33:00 Test Item Value Reference Range Interpretation Comments POC-GLUCOSE METER 101 mg/dL 70-110 : TESTED A T [place] [address] (BEAKER) (test code = [facility], 1538) [address]: Pipeline Engineer/Techni guadalupe ID = [id number] for ALYSHA DUMONT BASIC METABOLIC [id number] 07:27:00 Test Item Value Reference Range Interpretation [...] 697) EGFR (BEAKER) (test 47 mL/min/1.73 ESTIMA CYNTHIA GFR IS code = 1092) sq m NOT ACCURATE CREATININE CLEARANCE IN PREDICTING GLOMERULAR FILTRATION RATE . ESTIMATED GFR I S NOT APPLICABLE FOR DIALYSIS PATIEN TS. Pipeline Engineer ID - TERESA [id number] 07:27:00 Test Item Value Reference Range Interpretation Comments MAGNESIUM (BEAKER) (test code = 2.0 mg/dL 1.6-2.6 627) Pipeline Engineer ID - TERESA [id number] 07:27:00 Test Item Value Reference Range Interpretation Comments PHOSPHORUS (BEAKER) (test code = 4.0 mg/dL 2.3-4.7 604) Pipeline Engineer ID - TERESA MPOCT-GLUCOSE [id number] 17:44:00 Test Item Value Reference Range Interpretation Comments POC-GLUCOSE METER 130 mg/dL 70-110 H : TESTED A T [facility] [address] (BEAKER) (test code = [place], 1538) [address]: Pipeline Engineer/Techni guadalupe ID = [id number] for ALYSHA DUMONT
[2022-03-25 11:48] LABS: Absolute Lymphocytes (CBC) 1.6 K/uL (0.7-4.9); Hematocrit 36.6 % (36.0-45.0); Lymphocytes % 22.2 % (15.3-44.8); MCV 96.2 fL (80-100); MPV 8.3 fL (7.6-11.3); RBC Red Blood Cell Count 3.81 M/uL (3.86-4.86)
[2022-03-25 12:02] LABS: Potassium 4.3 mmol/L (3.5-5.1); Troponin High Sensitivity 8.4 pg/mL (<58.9)
--- NOTE | 2022-03-25 12:52 | ER ---
Nurse's Notes [facility] Name: Monique German Age: 86 yrs Sex: Female : 1935 Arrival Date: 03/25/2022 Time: 10:58 Bed 15 Private MD: Aki Bailon Diagnosis: Elevated Blood Pressure Presentation: 03/25 11:03 Chief complaint: Patient states: "I can't get my blood pressure under control". Pt aa5 reports systolic BP of 216 last night, denies any symptoms. Reports taking antihypertensive last night and this morning at 0730. 11:03 Coronavirus screen: At this time, the client does not indicate any symptoms associated aa5 with coronavirus-19. Ebola Screen: Patient denies travel to an Ebola-affected area in the 21 days before illness onset. Initial Sepsis Screen: Does the patient meet any 2 criteria? No. Patient's initial sepsis screen is negative. Does the patient have a suspected source of infection? No. Patient's initial sepsis screen is negative. Risk Assessment: Do you want to hurt yourself or someone else? Patient reports no desire to harm self or others. Onset of symptoms was March 2022. 11:03 Acuity: NBA 3 aa5 11:03 Method Of Arrival: Ambulatory aa5 Historical: - Allergies: 11:03 Demerol; hb - Home Meds: 11:25 atorvastatin 40mg nightly [Active]; clopidrogel 75mg daily [Active]; tizanidine 4mg aa5 daily [Active]; metoprolol tartrate 12.5mg BID [Active]; torsemide 20mg daily [Active]; tolterodine 4mg daily [Active]; levothyroxine 100 mcg tab 1 tab once daily [Active]; aspirin daily [Active]; preser vision areds daily [Active]; vitamin B12 1000mcg daily [Active]; potassium daily [Active]; imatinib mesylate 200mg daily [Active]; lumigan 1 drop each eye nightly [Active]; - PMHx: 11:03 ADD/ADHD; Hyperlipidemia; Hypertension; Pulmonary Embolism; Hypothyroidism; hb 11:12 Myocardial infarction; Leukemia; aa5 - Immunization history:: Adult Immunizations up to date. - Social history:: Smoking status: . Screenin:04 [facility] ED Fall Risk Assessment (Adult) Score/Fall Risk Level 0 - 2 = Low Risk hb Oriented to surroundings, Maintained a safe environment, Educated pt \\T\\ family on fall prevention, incl call for assistance when getting out of bed. Abuse screen: Denies threats or abuse. Denies injuries from another. Nutritional screening: No deficits noted. Tuberculosis screening: No symptoms or risk factors identified. Assessment: 11:11 General: Appears in no apparent distress. Behavior is calm, cooperative. Pain: Denies hb pain. Neuro: Level of Consciousness is awake, alert, obeys commands, Oriented to person, place, time, situation. Cardiovascular: Patient's skin is warm and dry. Respiratory: Respiratory effort is even, unlabored, Respiratory pattern is regular, symmetrical. GI: No signs and/or symptoms were reported involving the gastrointestinal system. : No signs and/or symptoms were reported regarding the genitourinary system. EENT: No signs and/or symptoms were reported regarding the EENT system. Derm: Skin is pink, warm \\T\\ dry. Musculoskeletal: No signs and/or symptoms reported regarding the musculoskeletal system. 12:45 Reassessment: Patient appears in no apparent distress at this time. Patient and/or hb family updated on plan of care and expected duration. Pain level reassessed. Patient is alert, oriented x 3, equal unlabored respirations, skin warm/dry/pink. Vital Signs: 11:03 BP 182 / 76; Pulse 71; Resp 16 S; Temp 98.0(TE); Pulse Ox 98% on R/A; Weight 72.57 kg aa5 (R); Height 5 ft. 2 in. (157.48 cm) (R); Pain 0/10; 12:14 BP 179 / 71; Pulse 58; Resp 15; Pulse Ox 100% on R/A; Pain 0/10; hb 13:00 BP 178 / 72; Pulse 56; Resp 16; Pulse Ox 100% on R/A; hb 11:03 Body Mass Index 29.26 (72.57 kg, 157.48 cm) aa5 ED Course: 10:58 Patient arrived in ED. am2 10:58 Aki Bailon MD is Private Physician. am2 11:00 [facility] 11:00 Chapito Amanda MD is Attending Physician. [facility] 11:03 Arm band placed on. hb 11:04 Patient has correct armband on for positive identification. hb 11:11 Charisma Watson, RN is Primary Nurse. hb 11:11 Triage completed. aa5 11:32 Inserted saline lock: 24 gauge upper arm, using aseptic technique. Blood collected. hb 12:14 XRAY Chest (1 view) Sent. hb 12:39 XRAY Chest (1 view) In Process Unspecified. EDMS 12:52 Hany Davidson MD is Referral Physician. [facility] 13:06 No provider procedures requiring assistance completed. IV discontinued, intact, hb bleeding controlled, No redness/swelling at site. Administered Medications: No medications were administered Medication: 11:04 VIS not applicable for this client. hb Outcome: 12:52 Discharge ordered by . [facility] 13:06 Discharged to home ambulatory, with family. hb 13:06 Condition: stable 13:06 Discharge instructions given to patient, Instructed on discharge instructions, follow up and referral plans. medication usage, Demonstrated understanding of instructions, follow-up care, medications, Prescriptions given X 1. 13:06 Patient left the ED. hb Signatures: Dispatcher [employer] EDMS Jomar Corcoran PA PA Ellie Choi, RN RN aa5 Charisma Watson, RN RN Jodie Hand am2
--- NOTE | 2022-03-25 12:52 | EDPHYS ---
Physician Documentation [facility] Name: Monique German Age: 86 yrs Sex: Female : 1935 Arrival Date: 03/25/2022 Time: 10:58 Bed 15 Private MD: Aki Bailon ED Physician Chapito Amanda HPI: 03/25 11:10 This 86 yrs old Female presents to ER via Ambulatory with complaints of High Blood jm Pressure. 11:10 Onset: The symptoms/episode began/occurred gradually, 1 day(s) ago. This is an 86 year jmm old female with a history of hlp, htn that presents to the ED with complaints of elevated blood pressure over 200 systolic last night. Denies chest pain, headache, weakness. . 14:21 Modifying factors:. jmm Historical: - Allergies: 11:03 Demerol; hb - Home Meds: 11:25 atorvastatin 40mg nightly [Active]; clopidrogel 75mg daily [Active]; tizanidine 4mg aa5 daily [Active]; metoprolol tartrate 12.5mg BID [Active]; torsemide 20mg daily [Active]; tolterodine 4mg daily [Active]; levothyroxine 100 mcg tab 1 tab once daily [Active]; aspirin daily [Active]; preser vision areds daily [Active]; vitamin B12 1000mcg daily [Active]; potassium daily [Active]; imatinib mesylate 200mg daily [Active]; lumigan 1 drop each eye nightly [Active]; - PMHx: 11:03 ADD/ADHD; Hyperlipidemia; Hypertension; Pulmonary Embolism; Hypothyroidism; hb 11:12 Myocardial infarction; Leukemia; aa5 - Immunization history:: Adult Immunizations up to date. - Social history:: Smoking status: . ROS: 14:21 Constitutional: Negative for fever, chills, and weight loss, Cardiovascular: Negative jm for chest pain, palpitations, and edema, Respiratory: Negative for shortness of breath, cough, wheezing, and pleuritic chest pain, Neuro: Negative for headache, weakness, numbness, tingling, and seizure. 14:21 All other systems are negative. Exam: 14:21 Constitutional: This is a well developed, well nourished patient who is awake, alert, jmm and in no acute distress. Head/Face: atraumatic. Eyes: EOMI, no conjunctival erythema appreciated ENT: Moist Mucus Membranes Neck: Trachea midline, Supple Chest/axilla: Normal chest wall appearance and motion. Cardiovascular: Regular rate and rhythm. No edema appreciated Respiratory: Normal respirations, no respiratory distress appreciated Abdomen/GI: Non distended Back: Normal ROM Skin: General appearance color normal MS/ Extremity: Moves all extremities, no obvious deformities appreciated, no edema noted to the lower extremities Neuro: Awake and alert Psych: Behavior is normal, Mood is normal, Patient is cooperative and pleasant Vital Signs: 11:03 BP 182 / 76; Pulse 71; Resp 16 S; Temp 98.0(TE); Pulse Ox 98% on R/A; Weight 72.57 kg aa5 (R); Height 5 ft. 2 in. (157.48 cm) (R); Pain 0/10; 12:14 BP 179 / 71; Pulse 58; Resp 15; Pulse Ox 100% on R/A; Pain 0/10; hb 13:00 BP 178 / 72; Pulse 56; Resp 16; Pulse Ox 100% on R/A; hb 11:03 Body Mass Index 29.26 (72.57 kg, 157.48 cm) aa5 MDM: 11:10 Patient medically screened. bijal 12:51 Data reviewed: vital signs, nurses notes. Counseling: I had a detailed discussion with kevin the patient and/or guardian regarding: the historical points, exam findings, and any diagnostic results supporting the discharge/admit diagnosis, lab results, the need for outpatient follow up, to return to the emergency department if symptoms worsen or persist or if there are any questions or concerns that arise at home. 12:51 ED course: Patient is alert and non toxic in appearance in the ED. Labs unremarkable. kevin Advised to follow up with cardiology for further evaluation. Patient otherwise given strict return precautions. Patient understood and agrees with the plan of care. . 03/25 11:16 Order name: Basic Metabolic Panel; Complete Time: 12:08 [facility] 03/25 11:16 Order name: CBC with Diff; Complete Time: 11:52 [facility] 03/25 11:16 Order name: Troponin HS; Complete Time: 12:08 [facility] 03/25 11:16 Order name: XRAY Chest (1 view); Complete Time: 14:15 [facility] 03/25 11:16 Order name: EKG; Complete Time: 11:17 [facility] 03/25 11:16 Order name: Cardiac monitoring; Complete Time: 11:39 [facility] 03/25 11:16 Order name: EKG - Nurse/Tech; Complete Time: 12:14 [facility] 03/25 11:16 Order name: IV Saline Lock; Complete Time: 11:39 [facility] 03/25 11:16 Order name: Labs collected and sent; Complete Time: 11:39 [facility] 03/25 11:16 Order name: O2 Per Protocol; Complete Time: 11:39 [facility] 03/25 11:16 Order name: O2 Sat Monitoring; Complete Time: :39 [facility] EC:21 Rate is 55 beats/min. Rhythm is regular, Sinus bradycardia. IL interval is normal. QRS jmm interval is normal. QT interval is normal. T waves are Normal. No ST changes noted. Reviewed by me. Administered Medications: No medications were administered Disposition: 14:36 Co-signature as Attending Physician, Chapito Amanda MD I reviewed the patient's care rt provided by the Advanced Practice Provider and agree with the diagnosis and treatment plan. Disposition Summary: 03/25/22 12:52 Discharge Ordered Location: Home jm Condition: Stable jmm Diagnosis - Elevated Blood Pressure jm Followup: jm - With: Hany Davidson MD - When: 2 - 3 days - Reason: Recheck today's complaints, Continuance of care, Re-evaluation by your physician Discharge Instructions: - Discharge Summary Sheet jmm - Hypertension, Adult jmm Forms: - Medication Reconciliation Form jm - Thank You Letter jm - Antibiotic Education jm - Prescription Opioid Use [facility] Prescriptions: - Norvasc 5 mg Oral Tablet - take 1 tablet by ORAL route once daily; 20 tablet; Refills: 0, Product jmm Selection Permitted Signatures: Dispatcher [employer] EDMS Jomar Corcoran PA PA jmm Calderon, Audri RN RN aa5 Charisma Watson RN RN Chapito Coughlin MD MD rt Corrections: (The following items were deleted from the chart) 14:22 11:10 This is an 86 year old female with a history of hlp, htn. [facility]
--- NOTE | 2022-03-25 12:55 | RAD REPORT ---
EXAM DESCRIPTION: RAD - Chest Single View - 03/25/2022 12:37 pm CLINICAL HISTORY: weakness COMPARISON: Chest Pa And Lat (2 Views) dated 09/13/2020; Chest Single View dated 12/28/2019; Chest Sin gle View dated 12/19/2019; Chest Pa And Lat (2 Views) dated 09/07/2017 FINDINGS: Lines: None. Lungs: No evidence of edema or pneumonia. Pleural: No significant pleural effusions or pneumothorax. Cardiac: The heart size is within normal limits. Mediastinum: Within normal limits. Bones: No acute fractures. Soft tissue anchors in the right humeral head. Other: None IMPRESSION: No acute cardiopulmonary disease.
[2022-03-25 13:57] VITALS: TEMP 98
[2022-03-25 14:03] VITALS: O2SAT 100
[2022-03-25 14:08] VITALS: BP 178/72
--- NOTE | 2022-03-27 12:41 | EKG ---
Test Date: 2022-03-25 Test Time: 11:48:41 Lacrosse Player: HB MEASUREMENT RESULTS: Intervals: Rate: 55 VA: 208 QRSD: 90 QT: 414 QTc: 396 Aston: P: 28 VA: 208 QRS: -1 T: 16 INTERPRETIVE STATEMENTS: Sinus bradycardia Minimal voltage criteria for LVH, may be normal variant Cannot rule out Anterior infarct, age undetermined Abnormal ECG Compared to ECG 09/13/2020 14:05:34 Left ventricular hypertrophy now present Myocardial infarct finding now present Sinus rhythm no longer present Electronically Signed On 03-27-22 12:37:05 OCEANOGRAPHY TEACHER by Hany Davidson
== END 2022-03-25 13:06 | disposition home or self-care (01) ==
LOC: ER 10:57
DX: I10 Essential (primary) hypertension (principal)
CPT/HCPCS: 36415; 71045; 80048; 84484; 85025; 93005; 99284

== ENCOUNTER 2022-07-05 08:30 | Day surgery (SDC) | payer OTHER ==
[2022-06-30 13:45] LABS: Potassium 4.1 mEq/L (3.5-5.1)
[2022-06-30 14:05] LABS: Protime INR 0.92
[2022-06-30 14:19] LABS: Absolute Lymphocytes (CBC) 1.8 K/uL (0.7-4.9); Hematocrit 37.9 % (36.0-45.0); Lymphocytes % 23.8 % (15.3-44.8); MCV 96.9 fL (80-100); RBC Red Blood Cell Count 3.91 M/uL (3.86-4.86)
--- NOTE | 2022-07-05 07:17 | EKG ---
Test Date: 2022-06-30 Test Time: 12:43:04 International Account Representative: BARBARA MEASUREMENT RESULTS: Intervals: Rate: 50 VT: 212 QRSD: 84 QT: 424 QTc: 386 Marlin: P: 23 VT: 212 QRS: -2 T: 10 INTERPRETIVE STATEMENTS: Sinus bradycardia with 1st degree AV block Minimal voltage criteria for LVH, may be normal variant Borderline ECG Compared to ECG 03/25/2022 11:48:41 First degree AV block now present Myocardial infarct finding no longer present Electronically Signed On 07-05-22 07:08:05 CDT by Gregory Jarrett
[2022-07-05] MEDS ORDERED: LIDOCAINE 1% 20 ML MDV ONE (08:53)
[2022-07-05] MEDS ORDERED: HEPA 1000U/500MLS 2,000 UNIT/1,000 ML BAG IV ONE (08:53)
[2022-07-05] MEDS ORDERED: NA CHLORIDE 0.9% 500 ML ONE (09:16)
[2022-07-05] MEDS ORDERED: FENTANYL CITR 100 MCG/2 ML ONE (09:44)
[2022-07-05] MEDS ORDERED: MIDAZOLAM HCL 2 MG/2 ML INJ ONE (09:45)
[2022-07-05] MEDS ORDERED: ATROPINE SULF 1 MG/10 ML SYR IV ONE (09:45)
[2022-07-05] MEDS ORDERED: HYDRALAZINE HCL 20 MG/ML VIAL ONE (10:12)
[2022-07-05] MEDS ORDERED: ACETAMINOPHEN 325 MG TABLET ONE (13:02)
--- NOTE | 2022-07-05 14:04 | RAD REPORT ---
EXAM DESCRIPTION: CT - Abdomen Pelvis Wo Contrast - 07/05/2022 1:29 pm CLINICAL HISTORY: r/o retroperitoneal bleed COMPARISON: CTSTONE PROTOCOL dated 04/07/2015; Bone Biopsy Deep dated 03/17/2021 TECHNIQUE: Thin cut axial CT imaging of the abdomen and pelvis was performed without IV contrast. Mu ltiplanar reformats were generated and reviewed. All CT scans are performed using dose optimization technique as appropriate and may include automated exposure control or mA/KV adjustment according to patient size. FINDINGS: No suspicious findings in the lung bases. The liver, spleen, and pancreas show no suspicious findings. Cholelithiasis. No evidence of intra or extrahepatic biliary ductal dilation. 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 Symmetric renal contour, without suspicious parenchymal findings within limits of noncontrast techniq ue. No evidence of radiopaque calculi or hydroureteronephrosis, although layering small amounts of ex creted contrast limit evaluation for calculi along the urinary tract and bladder. No dilated bowel loops or bowel wall thickening. No free air, free fluid or inflammatory stranding. N o hernia, mass or bulky lymphadenopathy. The urinary bladder is without significant finding. No suspicious bony findings. IMPRESSION: No acute intra-abdominal process. Stable findings as above.
--- NOTE | 2022-07-05 14:40 | OP ---
Date of Procedure: 07/05/2022 Surgeon: PHYLLIS LAROSE Procedure Performed: Bilateral selective carotid angiogram. Indication: Carotid stenosis. Access: Right femoral artery 4-Czech closed with manual pressure. Complications: None. Bleeding: Less than 20 mL. Description Of Procedure: After risks, benefits, alternatives were explained, the patient agreed to the procedure and signed informed consent. The patient was brought into the cardiac catheterization laboratory, prepped and draped in the usual sterile fashion. Then, I accessed right femoral artery u sing micropuncture kit, ultrasound guidance and fluoroscopy, placed a 4-Czech [place] sheath and se dation was given in incremental doses of fentanyl and Versed to achieve adequate moderate sedation. Total sedation time was 25 minutes. Then, I took a 4-Czech 3DRC catheter into the aortic root, enga ged the right common carotid, took standard views, and then engaged the left common carotid and took standard views, and the catheter was removed, sheath was removed, and manual pressure was applied wit h good hemostasis. Findings: 1.Right common carotid is normal. 2.Right internal carotid is normal. 3.Right external carotid is small, but normal. 4.The left common carotid is totally normal with the left external carotid being normal, the left in ternal carotid artery has proximal 50% stenosis. Conclusion: Moderate left internal carotid artery stenosis. Plan: Medical management. /MODL Voice ID: [id number] Report ID: [id number]
[2022-07-05 14:58] VITALS: TEMP 97.5
[2022-07-05 15:05] VITALS: O2SAT 100
[2022-07-05 15:32] VITALS: BP 120/56
== END 2022-07-05 15:32 | disposition home or self-care (01) ==
LOC: CCL 08:30
PROVIDERS: ATTEND Internal Medicine
DX: I65.22 Occlusion and stenosis of left carotid artery (principal); I25.10 Atherosclerotic heart disease of native coronary artery without angina pectoris; I10 Essential (primary) hypertension; E78.5 Hyperlipidemia, unspecified; Z79.82 Long term (current) use of aspirin; Z79.02 Long term (current) use of antithrombotics/antiplatelets; Z79.899 Other long term (current) drug therapy; Z88.8 Allergy status to other drugs, medicaments and biological substances
CPT/HCPCS: 36222; 36415; 74176; 76937; 80048; 85025; 85610; 85730; 93005; C1893; J0360; J0461; J2001; J2250; J3010; J7040

== ENCOUNTER 2023-12-28 20:25 | Emergency (ER) | payer OTHER ==
--- OUTSIDE RECORDS SUMMARY | 2023-12-28 20:28 | XMS REPORT | Clinical Summary ---
Author Name Unknown Organization [facility] Address [address] [place] [address] Care Team Providers Care Security Dispatcher Name Role Phone Raulito Hankins MD Primary Care Provider + [phone] Mar Oglesby MD Unavailable Allergies Active Allergy Reactions Criticality Noted Date Comments Meperidine (Pf) 12/23/2019 Medications * This document contains information received from the source organization and may not represent a complete record from that organization. atorvastatin (LIPITOR) 10 mg tablet Take 4 tablets (40 mg) by mouth at bedtime. Active clopidogrel (PLAVIX) 75 mg tablet Take 1 tablet (75 mg) by mouth daily. Active metoprolol tartrate (LOPRESSOR) 25 mg tablet Take 0.5 tablets (12.5 mg) by mouth twice daily. Active torsemide (DEMADEX) 20 mg tablet Take 1 tablet (20 mg) by mouth daily. Active levothyroxine (SYNTHROID, LEVOTHROID) 100 mcg tablet Take 1 tablet (100 mcg) by mouth daily. Active aspirin 81 mg EC tablet Take 1 tablet (81 mg) by mouth once. Active cyanocobalami n (VITAMIN B-12) 1000 mcg tablet Take 1 tablet (1,000 mcg) by mouth daily. Active potassium 99 mg tab Take 99 mg by mouth daily. Active vit C/E/Zn/coppr/ lutein/zeaxan (PRESERVISION AREDS-2 ORAL) Take 1 tablet by mouth daily. Active multivit-min/ iron/folic/heather tein (CENTRUM SILVER WOMEN ORAL) Take 1 tablet by mouth daily. Active IMATinib (Gleevec) 400 mg tabletIndicat ions:Chronic myeloid leukemia BCR/ABL-posit keith not having achieved remission Take 1 tablet (400 mg) by mouth daily. 30 tablet 11 01/17/20 23 Active Additional Information Patient taking differently:400 mg oral Daily,200mg in am and 200mg in pm, Reason: Other, Reported on 04/17/2023 IMATinib (Gleevec) 100 mg tabletIndicat ions:Chronic myeloid leukemia BCR/ABL-posit keith not having achieved remission Take 2 tablets (200 mg) by mouth twice daily. 120 tablet 11 07/17/19 24 Active simvastatin (ZOCOR) 20 mg tablet Take 1 tablet (20 mg) by mouth at bedtime. 10/18/19 24 Active tiZANidine (ZANAFLEX) 4 mg tablet Take 1 tablet (4 mg) by mouth daily. Active lisinopril (PRINIVIL,ZES TRIL) 10 mg tablet Take 1 tablet (10 mg) by mouth every morning. 09/27/19 24 Active tolterodine (DETROL LA) 4 mg 24 hr capsule Take 1 capsule (4 mg) by mouth daily. Active tolterodine (DETROL LA) 4 mg 24 hr capsule Take 1 capsule (4 mg) by mouth daily. 024 Discontinued co-enzyme Q-10 30 mg capsule Take 1 capsule (30 mg) by mouth daily. 024 Discontinued(Ot her/Not Applicable) IMATinib (Gleevec) 400 mg tabletIndicat ions:Chronic myeloid leukemia BCR/ABL-posit keith not having achieved remission Take 1 tablet (400 mg) by mouth daily. 30 tablet 09/22/19 23 023 Discontinued(Al ternate therapy) cephalexin (KEFLEX) 500 mg capsule Take 1 capsule (500 mg) by mouth 3 (three) times a day. 10/11/19 23 024 Discontinued(Ot her/Not Applicable) Active Problems Patient Care Coordination No te Formatting of this note migh t be different from the original. Gleevec 200 mg daily started 04/22/2021. 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 11/01/2023 7:45 AM CDT - 11/01/2023 11:59 PM CDT [facility] En[facility] [place] [address], 8th [place] [address] Kesha Pineda APRN 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 Discharge Disposition: Home 11/01/2023 [facility] Only [facility] [address] [place] [address] Main Bldg, 8th [place] [address] Kesha Pineda APRN 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 (Primary Dx) 11/01/2023 Travel 07/17/2023 9:30 AM CDT Follow[facility]Up [facility] Main Bldg, 8th [place] [address] Raulito Hankins MD 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 07/17/2023 8:00 AM CDT - 07/17/2023 11:59 PM CDT [facility] En[facility] [address] [facility] [address]g, [place] [address] Kesha Pindea APRN 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 Discharge Disposition: Home 07/17/2023 Orders Only [facility] Main Bldg, 8th [place] [address] Kesha Pineda APRN 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 (Primary Dx) 07/17/2023 Travel 04/24/2023 11:00 AM CDT Telephone [facility] [address] Bldg, 8th [place] [address] Raulito Hankins MD 04/23/2023 Orders Only [facility] [address] Bldg, 8th [place] [address] Kesha Pineda APRN 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 (Primary Dx) 04/17/2023 10:15 AM CDT [facility] [address] Bldg, 8th [place] [address] Raulito Hankins MD 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 04/17/2023 8:05 AM CDT - 04/17/2023 11:59 PM CDT Hospital Encounter [facility] [address] Bldg, 8th [place] [address] Kesha Pineda APRN 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 Discharge Disposition: Home 04/17/2023 Orders Only [facility] [address] Bldg, 8th [place] [address] Kesha Pineda APRN 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 (Primary Dx) 04/17/2023 Travel 01/16/2023 10:45 AM EDUCATIONAL THERAPIST Follow[facility] [address] Bldg, 8th [place] [address] Raulito Hankins MD 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 01/16/2023 8:43 AM EDUCATIONAL THERAPIST - 01/16/2023 11:59 PM EDUCATIONAL THERAPIST Hospital Encounter [facility] [address] Bldg, 8th [place] [address] Kesha Pineda APRN 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 Discharge Disposition: Home 01/16/2023 Orders Only [facility] [address] Bldg, 8th [place] [address] Kesha Pineda APRN 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 (Primary Dx) 01/16/2023 Travel after 12/28/2022 Surgical History Surgery Date Site/Laterality Comments TOTAL KNEE ARTHROPLASTY 02/05/2003 - 02/05/2004 Bilatera l SHOULDER ARTHROSCOPY 02/05/2011 - 02/05/2012 Bilateral HYSTERECTOMY 02/05/1997 - 02/04/1998 Medical History Medical History Date Comments Hypertension Coronary artery disease due to calcified coronar y lesion 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 in R [...] 0 (1 standard drink = 0.6 oz pur e alcohol) Comments Unknown Sex and Gender Information Value Date Recorded Sex Assigned at Not on file Legal Sex Female 8:38 AM EDUCATIONAL THERAPIST Gender Identity Female 04/26/2021 5:02 PM CDT Sexual Orientation Choose not to disclose 2021 5:02 PM CDT 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 Not on file Not on file Not on file Obstetrics History Last Filed Vital Signs Vital Sign Reading Time Taken Comments Blood Pressure 120/69 11/01/2023 8:32 AM CDT Pulse 80 11/01/2023 8:32 AM CDT Temperature 37.2 C (99 F) 11/01/2023 8:32 AM CDT Respiratory Rate 17 11/01/2023 8:32 AM CDT Oxygen Saturation 96% 11/01/2023 8:32 AM CDT Inhaled Oxygen Concentration - - Weight 67.3 kg (148 lb 5.9 oz) 11/01/2023 8:32 A M CDT Height - - Body Mass Index 28.56 10/16/2022 8:03 AM CDT Plan of Treatment Upcoming Encounters Date Type Department Care Team (Late st Contact Info) Description 02/28/2024 8:15 AM EDUCATIONAL THERAPIST Appointment [facility] [place] [address] [facility] Main dg, 8th Floor Elevator [address] [place], [place] [id number] Kesha Pineda APRN [address] [place], [place] [phone] [email or web address] 02/28/2024 9:45 AM EDUCATIONAL THERAPIST Follow[facility] [address] [place] [address] Main [facility], 8th [place] [address] Raulito Hankins MD [facility] [place] [address] [email or web address] Health Maintenance Due Date Last Done Comments COVID-19 Vaccine (#1) 12/01/1940 Pneumococcal Vaccine: 65+ Years (1 of 2 - PCV) 942 Influenza Vaccine (#1) 2023 Procedures Procedure Name Priority Date/Time Associated Diagnosis Comments .CBC Routine 11/01/2023 8:22 AM CDT 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 HP T(9;22) BCR/ABL1 QUANTITATIVE PCR INTERPRETATION AND REPORT Routine 11/01/2023 8:22 AM CDT 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 COMPLETE BLOOD COUNT W/ DIFFERENTIAL Routine 11/01/2023 8:22 AM CDT 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 ASPARTATE AMINOTRANSFERASE Routine 11/01/2023 8:22 AM CDT 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 MAGNESIUM LEVEL Routine 11/01/2023 8:22 AM CDT 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 ELECTROLYTE PANEL Routine 11/01/2023 8:2 2 AM CDT 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 ALANINE AMINOTRANSFERASE Routine 024 8:22 AM CDT 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 LACTATE DEHYDROGENASE Routine 11/01/2023 8:22 AM CDT 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 ALKALINE PHOSPHATASE Routine 11/01/2023 8:22 AM CDT 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 FRACTIONATED BILIRUBIN Routine 8:22 AM CDT 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 URIC ACID Routine 11/01/2023 8:22 AM CDT 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 CREATININE Routine 11/01/2023 8:22 AM CDT 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 BLOOD UREA NITROGEN Routine 11/01/2023 8 :22 AM CDT 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 GLUCOSE, RANDOM Routine 11/01/2023 8:22 AM CDT 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 PHOSPHORUS LEVEL Routine 11/01/2023 8:22 AM CDT 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 CALCIUM LEVEL Routine 11/01/2023 8:22 AM CDT 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 ALBUMIN LEVEL Routine 11/01/2023 8:22 AM CDT 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 TOTAL PROTEIN Routine 11/01/2023 8:22 AM CDT 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 .CBC Routine 07/17/2023 8:33 AM CDT 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 JUAREZ BENÍTEZ T(9;22) BCR/ABL1 QUANTITATIVE PCR INTERPRETATION AND REPORT Routine 07/17/2023 8:33 AM CDT 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 COMPLETE BLOOD COUNT W/ DIFFERENTIAL Routine 07/17/2023 8:33 AM CDT 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 ASPARTATE AMINOTRANSFERASE Routine 07/17/2023 8:33 AM CDT 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 MAGNESIUM LEVEL Routine 07/17/2023 8:33 AM CDT 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 ELECTROLYTE PANEL Routine 07/17/2023 8:3 3 AM CDT 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 ALANINE AMINOTRANSFERASE Routine 024 8:33 AM CDT 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 LACTATE DEHYDROGENASE Routine 07/17/2023 8:33 AM CDT 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 ALKALINE PHOSPHATASE Routine 07/17/2023 8:33 AM CDT 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 FRACTIONATED BILIRUBIN Routine 8:33 AM CDT 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 URIC ACID Routine 07/17/2023 8:33 AM CDT 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 CREATININE Routine 07/17/2023 8:33 AM CDT 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 BLOOD UREA NITROGEN Routine 07/17/2023 8 :33 AM CDT 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 GLUCOSE, RANDOM Routine 07/17/2023 8:33 AM CDT 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 PHOSPHORUS LEVEL Routine 07/17/2023 8:33 AM CDT 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 CALCIUM LEVEL Routine 07/17/2023 8:33 AM CDT 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 ALBUMIN LEVEL Routine 07/17/2023 8:33 AM CDT 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 TOTAL PROTEIN Routine 07/17/2023 8:33 AM CDT 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 .CBC Routine 04/17/2023 8:11 AM CDT 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 HP T(9;22) BCR/ABL1 QUANTITATIVE PCR INTERPRETATION AND REPORT Routine 04/17/2023 8:11 AM CDT 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 COMPLETE BLOOD COUNT W/ DIFFERENTIAL Routine 04/17/2023 8:11 AM CDT 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 ASPARTATE AMINOTRANSFERASE Routine 04/17/2023 8:11 AM CDT 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 MAGNESIUM LEVEL Routine 04/17/2023 8:11 AM CDT 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 ELECTROLYTE PANEL Routine 04/17/2023 8:1 1 AM CDT 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 ALANINE AMINOTRANSFERASE Routine 024 8:11 AM CDT 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 LACTATE DEHYDROGENASE Routine 04/17/2023 8:11 AM CDT 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 ALKALINE PHOSPHATASE Routine 04/17/2023 8:11 AM CDT 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 FRACTIONATED BILIRUBIN Routine 8:11 AM CDT 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 URIC ACID Routine 04/17/2023 8:11 AM CDT 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 CREATININE Routine 04/17/2023 8:11 AM CDT 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 BLOOD UREA NITROGEN Routine 04/17/2023 8 :11 AM CDT 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 GLUCOSE, RANDOM Routine 04/17/2023 8:11 AM CDT 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 PHOSPHORUS LEVEL Routine 04/17/2023 8:11 AM CDT 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 CALCIUM LEVEL Routine 04/17/2023 8:11 AM CDT 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 ALBUMIN LEVEL Routine 04/17/2023 8:11 AM CDT 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 TOTAL PROTEIN Routine 04/17/2023 8:11 AM CDT 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 .CBC Routine 01/16/2023 8:51 AM EDUCATIONAL THERAPIST 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 COMPLETE BLOOD COUNT W/ DIFFERENTIAL Routine 01/16/2023 8:51 AM EDUCATIONAL THERAPIST 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 ASPARTATE AMINOTRANSFERASE Routine 01/16/2023 8:51 AM EDUCATIONAL THERAPIST 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 MAGNESIUM LEVEL Routine 01/16/2023 8:51 AM EDUCATIONAL THERAPIST 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 ELECTROLYTE PANEL Routine 01/16/2023 8:5 1 AM EDUCATIONAL THERAPIST 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 ALANINE AMINOTRANSFERASE Routine 023 8:51 AM EDUCATIONAL THERAPIST 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 LACTATE DEHYDROGENASE Routine 01/16/2023 8:51 AM EDUCATIONAL THERAPIST 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 ALKALINE PHOSPHATASE Routine 01/16/2023 8:51 AM EDUCATIONAL THERAPIST 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 FRACTIONATED BILIRUBIN Routine 8:51 AM EDUCATIONAL THERAPIST 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 URIC ACID Routine 01/16/2023 8:51 AM EDUCATIONAL THERAPIST 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 CREATININE Routine 01/16/2023 8:51 AM EDUCATIONAL THERAPIST 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 BLOOD UREA NITROGEN Routine 01/16/2023 8 :51 AM EDUCATIONAL THERAPIST 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 GLUCOSE, RANDOM Routine 01/16/2023 8:51 AM EDUCATIONAL THERAPIST 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 PHOSPHORUS LEVEL Routine 01/16/2023 8:51 AM EDUCATIONAL THERAPIST 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 CALCIUM LEVEL Routine 01/16/2023 8:51 AM EDUCATIONAL THERAPIST 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 ALBUMIN LEVEL Routine 01/16/2023 8:51 AM EDUCATIONAL THERAPIST 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 Glucose Random 150 70 - 199 mg/dL 11/01/2023 9:13 AM CDT [facility] Blood Peripheral blood specimen / Unknown Venipuncture / Unknown 11/01/2023 8:22 AM CDT 11/01/2023 8:26 AM CDT Narrative [facility] - 11/01/2023 9:13 AM CDT Effective 09/01/15, the glucose reference intervals have been updated based on [place] Diabetes Association guidelines (Standards of Medical Care in Diabetes 2016. Diabetes Care 2016; 39: S13-S22). Fasting blood glucose: Normal: 70-99 mg/dL Impaired fasting glucose (increased risk for diabetes or pre-diabetes): 100-125 mg/dL Diabetes mellitus: >/=126 mg/dL Random blood glucose: Normal: 70-199 mg/dL Note: Random glucose >100 mg/dL is associated with increased risk for diabetes Kesha Pineda APRN LAB BLOOD ORDERABLES Final Result [facility] Unless otherwise noted, all lab tests performed by: Division of Pathology and Laboratory Medicine [address] [place] [id number] * (ABNORMAL) .CBC (11/01/2023 8:22 AM CDT) Only the most recent of4 resultswithin the time period is included. [facility] White Blood Cell 9.0 4.1 - 10.5 K/uL 11/01/2023 8:35 AM [facility] Red Blood Cell 2.75(L) 3.99 - 5.46 M/uL 11/01/2023 8:35 AM [facility] Hemoglobin 9.8(L) 12.2 - 15.3 g/dL 11/01/2023 8:35 AM [facility] Hematocrit 28.8(L) 36.4 - 46.8 % 11/01/2023 8:35 AM [facility] Mean Cell Volume 105(H) 82 - 99 fL 11/01/2023 8:35 AM [facility] Mean Cell Hemoglobin 35.6(H) 26.6 - 33.2 pg 11/01/2023 8:35 AM [facility] Mean Cell Hemoglobin Concentration 34.0 31.1 - 35.2 g/dL 11/01/2023 8:35 AM [facility] RDW-SD 57.1(H) 37.5 - 49.7 fL 11/01/2023 8:35 AM [facility] Red Cell Diameter Width 14.7 11.6 - 15.5 % 11/01/2023 8:35 AM [facility] Platelet 205 160 - 397 K/uL 11/01/2023 8:35 AM [facility] Mean Platelet Volume 10.0 9.1 - 12.6 fL 11/01/2023 8:35 AM [facility] INRBC 0.0 0.0 - 0.1 /100 WBC 11/01/2023 8:35 AM [facility] Comment: The INRBC (instrument NRBC) value reflects the enumeration of nucleated red blood cells contained in a 200uL sample of whole blood analyzed by the instrument. This value may differ from the NRBC value reported in a manual differential, which is based on a 100 cell differential. Neutrophil % 71.0 43.2 - 72.7 % 11/01/2023 8:35 AM [facility] Lymphocyte % 16.8 16.8 - 46.2 % 11/01/2023 8:35 AM CDT [facility] Monocyte % 10.9 5.1 - 12.5 % 11/01/2023 8:35 AM CDT [facility] Eosinophil % 1.0 0.4 - 6.3 % 11/01/2023 8:35 AM CDT [facility] Basophil % 0.2 0.2 - 1.4 % 11/01/2023 8:35 AM CDT [facility] IGRE % 0.1 0.1 - 1.5 % 11/01/2023 8:35 AM CDT [facility] Comment:The IGRE% includes M etamyelocytes, Myelocytes and Promyelocytes. Neutrophil Abs 6.35 1.95 - 7.25 K/uL 11/01/2023 8:35 AM CDT [facility] Lymphocyte Abs 1.50 1.01 - 3.24 K/uL 11/01/2023 8:35 AM CDT [facility] Monocyte Abs 0.98(H) 0.24 - 0.85 K/uL 11/01/2023 8:35 AM CDT [facility] Eosinophil Abs 0.09 0.02 - 0.50 K/uL 11/01/2023 8:35 AM CDT [facility] Basophil Abs 0.02 0.02 - 0.09 K/uL 11/01/2023 8:35 AM CDT [facility] IG Abs 0.01 0.01 - 0.12 K/uL 11/01/2023 8:35 AM CDT [facility] Blood Peripheral blood specimen / Unknown Venipuncture / Unknown 11/01/2023 8:22 AM CDT 11/01/2023 8:26 AM CDT Kesha Pineda APRN LAB BLOOD ORDERABLES Final Result [facility] Unless otherwise noted, all lab tests performed by: Division of Pathology and Laboratory Medicine [address] [place] [id number] * Fractionated Bilirubin (11/01/2023 8:22 AM CDT) Only the most recent of4 resultswithin the time period is included. Bilirubin Direct 0.2 0.0 - 0.3 mg/dL 11/01/2023 9:13 AM CDT [facility] Comment:Indocyanine Green (I CG) may cause falsely elevated bilirubin results. Total and direct bilirubin must not be measured from samples containing indocyanine green. Bilirubin Indirect 0.3 0.0 - 0.9 mg/dL 11/01/2023 9:13 AM CDT [facility] Bilirubin Total 0.5 0.0 - 1.2 mg/dL 11/01/2023 9:13 AM CDT [facility] Comment:Indocyanine Green (I CG) may cause falsely elevated bilirubin results. Total and direct bilirubin must not be measured from samples containing indocyanine green. False elevation of total bilirubin can be seen in patients with IgG concentrations above 28 g/L. Blood Peripheral blood specimen / Unknown Venipuncture / Unknown 11/01/2023 8:22 AM CDT 11/01/2023 8:26 AM CDT Kesha Pineda APRN LAB BLOOD ORDERABLES Final Result [facility] Unless otherwise noted, all lab tests performed by: Division of Pathology and Laboratory Medicine [address] [place] [id number] * t(9;22) BCR/ABL1 Quantitative PCR Interpretation and Report (11/01/2023 8:22 AM CDT) Only the most recent of4 resultswithin the time period is included. Percent of BCR-ABL1 to ABL1 1.90 % 11/06/2023 4:46 PM CDT [facility] BCR/ABL1 Interpretation A b3a2 BCR-ABL1 fusion transcript coding for the 210kDa BCR-ABL1 fusion protein is detected by quantitative real-time RT-PCR. 11/06/2023 4:46 PM CDT [facility]ST[facility] BCR/ABL1 Methodology Quantitative real-time PCR analysis was performed on reverse-transcrib ed RNA from this sample for the BCR-ABL1 fusion transcripts resulting from the t(9;22)(q34;q11.2 ) in Leukemia. This multiplex assay is designed to detect common BCR-ABL1 fusion transcripts e13a2(b2a2), e14a2(b3a2) and e1a2. The fusion transcripts are differentiated based on the size of the PCR product using capillary electrophoresis. BCR-ABL1 and ABL1 transcript levels are detected simultaneously and quantitative results are expressed as the percent ratio of BCR-ABL1 to ABL1 transcript levels. This ratio may vary up to one-log because of methodological reasons. The sensitivity of detection of BCR-ABL1 transcripts by real-time PCR is between 1 in 10,000 and 1 in 100,000. Comment: This assay can be used to monitor minimal residual disease (MRD). Test performed on 11/06/2023 11/06/2023 4:46 PM CDT MOLEC[facility] DIAGNOST[facility] ASR DISCLAIMER This test was developed and its performance characteristics determined by the [facility] ([facility]) at [facility]. It has not been cleared or approved by the U.S. Food and Drug Administration (FDA). The FDA has determined that such clearance or approval is not necessary. This test is used for clinical purposes. This laboratory is certified under the Clinical Laboratory Improvement Act (CLIA) of 1988 to perform high complexity clinical laboratory testing. Data and/or image review for this report includes activity performed off-site at location: [facility]. 11/06/2023 4:46 PM CDT MOLECULAR DIAGNOSTICS Pathologist Signature . 11/06/2023 4:46 PM CDT [facility] Blood Peripheral blood specimen / Unknown Venipuncture / Unknown 11/01/2023 8:22 AM CDT 11/01/2023 8:26 AM CDT us Kesha PIZARRO [facility]ST[facility] S (JUAREZ BENÍTEZ) Final Result [facility] DI[facility]NOST[facility] [address] [place] [address] [facility] * Uric Acid (11/01/2023 8:22 AM CDT) Only the most recent of4 resultswithin the time period is included. Uric Acid 5.4 2.4 - 5.7 mg/dL 11/01/2023 9:13 AM CDT [facility] Blood Peripheral blood specimen / Unknown Venipuncture / Unknown 11/01/2023 8:22 AM CDT 11/01/2023 8:26 AM CDT Kesha Pineda APRN LAB BLOOD ORDERABLES Final Result Performing Organization Address City/[facility] Co de Phone Number [facility] Unless otherwise noted, all lab tests performed by: Division of Pathology and Laboratory Medicine [address] [place] [phone] * (ABNORMAL) BUN (11/01/2023 8:22 AM CDT) Only the most recent of4 resultswithin the time period is included. BUN 27(H) 6 - 23 mg/dL 11/01/2023 9:13 AM CDT [facility] Blood Peripheral blood specimen / Unknown Venipuncture / Unknown 11/01/2023 8:22 AM CDT 11/01/2023 8:26 AM CDT Kesha Pineda APRN LAB BLOOD ORDERABLES Final Result Performing Organization Address [facility] de Phone Number [facility] Unless otherwise noted, all lab tests performed by: Division of Pathology and Laboratory Medicine [address] [place] [id number] * Alanine Aminotransferase (11/01/2023 8:22 AM CDT) Only the most recent of4 resultswithin the time period is included. ALT 14 <=33 U/L 11/01/2023 9:13 AM CDT [facility] Blood Peripheral blood specimen / Unknown Venipuncture / Unknown 11/01/2023 8:22 AM CDT 11/01/2023 8:26 AM CDT Kesha Pineda APRN LAB BLOOD ORDERABLES Final Result Performing Organization Address City/[facility]/ZIP Co de Phone Number [facility] Unless otherwise noted, all lab tests performed by: Division of Pathology and Laboratory Medicine [address] [place] [phone] * Aspartate Aminotransferase (11/01/2023 8:22 AM CDT) Only the most recent of4 resultswithin the time period is included. AST 26 <=32 U/L 11/01/2023 9:13 AM CDT [facility] Blood Peripheral blood specimen / Unknown Venipuncture / Unknown 11/01/2023 8:22 AM CDT 11/01/2023 8:26 AM CDT Kseha Pineda APRN LAB BLOOD ORDERABLES Final Result Performing Organization Address [facility] Co de Phone Number [facility] Unless otherwise noted, all lab tests performed by: Division of Pathology and Laboratory Medicine [address] [place] [phone] * Total Protein (11/01/2023 8:22 AM CDT) Only the most recent of4 resultswithin the time period is included. Pathologist [facility] Tot Protein 6.4 6.4 - 8.3 gm/dL 11/01/2023 9:13 AM CDT [facility] Blood Peripheral blood specimen / Unknown Venipuncture / Unknown 11/01/2023 8:22 AM CDT 11/01/2023 8:26 AM CDT Narrative [facility] - 11/01/2023 9:13 AM CDT Reference range established based on adult population Kesha Pineda APRN LAB BLOOD ORDERABLES Final Result [facility] Unless otherwise noted, all lab tests performed by: Division of Pathology and Laboratory Medicine [address] [place] [phone] * Phosphorus Level (11/01/2023 8:22 AM CDT) Only the most recent of4 resultswithin the time period is included. Pathologist [facility] Phosphorus Level 3.4 2.5 - 4.5 mg/dL 11/01/2023 9:13 AM CDT [facility] Blood Peripheral blood specimen / Unknown Venipuncture / Unknown 11/01/2023 8:22 AM CDT 11/01/2023 8:26 AM CDT Kesha Pineda APRN LAB BLOOD ORDERABLES Final Result Performing Organization Address City/[facility] de Phone Number [facility] Unless otherwise noted, all lab tests performed by: Division of Pathology and Laboratory Medicine [address] [place] [phone] * (ABNORMAL) Alkaline Phosphatase (11/01/2023 8:22 AM CDT) Only the most recent of4 resultswithin the time period is included. Alkaline Phosphatase 31(L) 35 - 104 U/L 11/01/2023 9:13 AM CDT [facility] Blood Peripheral blood specimen / Unknown Venipuncture / Unknown 11/01/2023 8:22 AM CDT 11/01/2023 8:26 AM CDT Kesha Pineda APRN LAB BLOOD ORDERABLES Final Result Performing Organization Address [facility] de Phone Number [facility] Unless otherwise noted, all lab tests performed by: Division of Pathology and Laboratory Medicine [address] [place] [phone] * Magnesium Level (11/01/2023 8:22 AM CDT) Only the most recent of4 resultswithin the time period is included. Magnesium Level 2.0 1.6 - 2.6 mg/dL 11/01/2023 9:13 AM CDT [facility] Blood Peripheral blood specimen / Unknown Venipuncture / Unknown 11/01/2023 8:22 AM CDT 11/01/2023 8:26 AM CDT Kesha Pineda APRN LAB BLOOD ORDERABLES Final Result Performing Organization Address City/[facility] de Phone Number [facility] Unless otherwise noted, all lab tests performed by: Division of Pathology and Laboratory Medicine [address] [place] [phone] * (ABNORMAL) LDH (11/01/2023 8:22 AM CDT) Only the most recent of4 resultswithin the time period is included. LDH 227(H) 135 - 214 U/L 11/01/2023 9:14 AM CDT [facility] Blood Peripheral blood specimen / Unknown Venipuncture / Unknown 11/01/2023 8:22 AM CDT 11/01/2023 8:26 AM CDT Narrative [facility] - 11/01/2023 9:14 AM CDT Results greater than 1651 U/L may not be reliable due to matrix effect with extended dilution as it exceeds the evaporator helper's recommended limit. Caution should be exercised when interpreting such values and done in conjunction with clinical context. Kesha Pineda [facility] LAB BLOOD ORDERABLES Final Result [facility] Unless otherwise noted, all lab tests performed by: Division of Pathology and Laboratory Medicine [address] [place] [id number] * (ABNORMAL) Creatinine (11/01/2023 8:22 AM CDT) Only the most recent of4 resultswithin the time period is included. Creatinine 1.57(H) 0.51 - 0.95 mg/dL 11/01/2023 9:13 AM CDT [facility] eGFR 32(L) >=60 mL/min/1. 73 sq. m 11/01/2023 9:13 AM CDT [facility] Comment: The eGFRcr is calculated with the 2020 CKD-EPI creatinine equation using creatinine, patient's age, and sex for adults 18 years of age and older. Other factors, especially muscle mass, may affect accuracy and need to be considered. According to the Kidney Disease: Improving Global Outcomes (KDIGO) CKD Work Group 2012 Clinical Practice Guideline, chronic kidney disease (CKD) is defined as the abnormalities of kidney structure or function, present for more than 3 months, with implications for health. CKD should be classified by cause, GFR category, and albuminuria category. KDIGO guidelines provide the following GFR categories. Stage / Description / GFR mL/min/1.73 m2: G1* / Normal or high / >= 90 G2* / Mildly decreased / 60-89 G3a / Mildly to moderately decreased / 45-59 G3b / Moderately to severely decreased / 30-44 G4 / Severely decreased / 15-29 G5 / Kidney failure / <15 *In the absence of evidence of kidney damage, neither G1 nor G2 fulfill criteria for CKD. Blood Peripheral blood specimen / Unknown Venipuncture / Unknown 11/01/2023 8:22 AM CDT 11/01/2023 8:26 AM CDT Kesha Pineda APRN LAB BLOOD ORDERABLES Final Result Performing Organization Address City/[facility] Co de Phone Number [facility] Unless otherwise noted, all lab tests performed by: Division of Pathology and Laboratory Medicine [address] [place] [address] [phone] * Calcium Level (11/01/2023 8:22 AM CDT) Only the most recent of4 resultswithin the time period is included. [facility] Calcium Level Total 9.2 8.2 - 10.2 mg/dL 11/01/2023 9:13 AM CDT [facility] Blood Peripheral blood specimen / Unknown Venipuncture / Unknown 11/01/2023 8:22 AM CDT 11/01/2023 8:26 AM CDT Kesha Pineda APRN LAB BLOOD ORDERABLES Final Result [facility] Unless otherwise noted, all lab tests performed by: Division of Pathology and Laboratory Medicine [address] [place] [phone] * Albumin Level (11/01/2023 8:22 AM CDT) Only the most recent of4 resultswithin the time period is included. Albumin Level 4.2 3.5 - 5.2 gm/dL 11/01/2023 9:13 AM CDT [facility] Blood Peripheral blood specimen / Unknown Venipuncture / Unknown 11/01/2023 8:22 AM CDT 11/01/2023 8:26 AM CDT Kesha Pineda APRN LAB BLOOD ORDERABLES Final Result Performing Organization Address City/[facility]/ZIP Co de Phone Number [facility] Unless otherwise noted, all lab tests performed by: Division of Pathology and Laboratory Medicine [address] [place] [phone] * Electrolyte Panel (11/01/2023 8:22 AM CDT) Only the most recent of4 resultswithin the time period is included. Sodium Level 143 136 - 145 mmol/L 11/01/2023 9:13 AM CDT [facility] Potassium Level 4.2 3.4 - 4.5 mmol/L 11/01/2023 9:13 AM CDT [facility] Chloride 106 98 - 107 mmol/L 11/01/2023 9:13 AM CDT [facility] CO2 27 22 - 29 mmol/L 11/01/2023 9:13 AM CDT [facility] Anion Gap 10 4 - 14 mmol/L 11/01/2023 9:13 AM CDT [facility] Blood Peripheral blood specimen / Unknown Venipuncture / Unknown 11/01/2023 8:22 AM CDT 11/01/2023 8:26 AM CDT Kesha Pineda APRN LAB BLOOD ORDERABLES Final Result [facility] Unless otherwise noted, all lab tests performed by: Division of Pathology and Laboratory Medicine [address] [place] [address] [phone] after 12/28/2022 Insurance [employer] MED[employer]ARE PPO [employer]ARE PPO Care Teams Security Dispatcher Relationship Specialty Start Date End Date Raulito Hankins MD [address] [place] [address] [email or web address] PCP - General Leukemia 04/05/21 Mar Oglesby MD [address] [place] [address] [email or web address] PCP - External Follow Up A Hematology 04/05/21
[2023-12-28] MEDS ORDERED: ACETAMINOPHEN 325 MG TABLET ONE (21:23)
--- NOTE | 2023-12-28 22:49 | RAD REPORT ---
EXAMINATION: CT ABDOMEN AND PELVIS WITHOUT CONTRAST CLINICAL INDICATION: Abdominal pain TECHNIQUE: CT abdomen and pelvis was performed, as per department protocol. IV contrast and oral was not administered.Axial, sagittal and coronal reconstructions were obtained. One or more of the following dose reduction techniques were used: Automated exposure control, adjustment of the mA and/o r kV according to the patient size, and/or iterative reconstruction. Unless otherwise specified, incidental findings do not require dedicated imaging follow-up. [id number]. COMPARISON: 2022 FINDINGS: The lack of intravenous and oral contrast limits evaluation of solid organs, vessels and bowel. The liver, spleen, pancreas, adrenals kidneys and bladder do not demonstrate a traumatic injury. Gallstones. Gallbladder wall is not thickened. 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 No significant change since the prior exam. Filter within the IVC. Hysterectomy. No adnexal mass. No evidence of diverticulitis. Ill-defined stranding is present within the subcutaneous tissues of the left flank. The adjacent musculature is normal size and density. IMPRESSION: Contusion subcutaneous tissues left flank
--- NOTE | 2023-12-28 22:58 | EDPHYS ---
Physician Documentation [facility] Name: Monique German Age: 88 yrs Sex: Female : 1935 Arrival Date: 12/28/2023 Time: 20:25 Bed 3 Private MD: ED Physician Neil Humphrey HPI: 12/27 21:26 This 88 yrs old Female presents to ER via Ambulatory with complaints of Fall Injury, sp3 Low Back Pain. 21:26 88-year-old female with history of hyperlipidemia, hypertension, ID on Plavix and sp3 aspirin presents to the ED with left flank pain after mechanical ground-level fall today while walking outside. Patient has ecchymoses on the left flank that she is concerned about. She denies any hip injury or pain and is ambulatory. She denies any head injury, loss of consciousness, neck pain, chest pain, back pain, other extremity pain, or any other signs or symptoms on ROS at this time.. Historical: - Allergies: 20:59 Demerol; ss - Home Meds: 20:59 amlodipine 5 mg tablet daily [Active]; aspirin daily daily [Active]; atorvastatin 40mg ss nightly [Active]; clinsamvcin HCL 300 mg twice a day [Active]; clopidrogel 75mg daily [Active]; Detrol LA 4 mg Oral cp24 1 cap once daily [Active]; imatinib mesylate 200mg daily [Active]; levothyroxine 100 mcg tab 1 tab once daily [Active]; Lotrel 5-10 mg Oral cap 1 cap once daily [Active]; lumigan 1 drop each eye nightly [Active]; metformin 500 mg Oral tr24 2 tabs [Active]; metoprolol tartrate 12.5mg BID [Active]; Potassium Chloride Oral [Active]; potassium daily [Active]; preser vision areds daily [Active]; PreserVision AREDS Oral [Active]; simvastatin 20 mg Oral tab 1 tab once daily [Active]; tizanidine 4mg daily [Active]; tolterodine 4mg daily [Active]; torsemide 20 mg Oral tab 1 tab once daily [Active]; torsemide 20mg daily [Active]; Zanaflex 4 mg Oral tab 1 tab daily [Active]; vitamin B12 1000mcg daily [Active]; - PMHx: 20:59 ADD/ADHD; Hyperlipidemia; Hypertension; Hypothyroidism; Leukemia; Myocardial ss infarction; Pulmonary Embolism; - PSHx: 20:59 Appendectomy; Operative procedure on knee; Tonsillectomy; ss - Immunization history: Last tetanus immunization: - up to date. - Infectious Disease History:: Denies. - Social history:: Smoking status: Patient denies any tobacco usage or history of. ROS: 21:27 Constitutional: Negative for fever, chills, and weight loss, Eyes: Negative for injury, sp3 pain, redness, and discharge, Neck: Negative for injury, pain, and swelling, Cardiovascular: Negative for chest pain, palpitations, and edema, Respiratory: Negative for shortness of breath, cough, wheezing, and pleuritic chest pain, MS/Extremity: Negative for injury and deformity, Skin: Negative for injury, rash, and discoloration, Neuro: Negative for headache, weakness, numbness, tingling, and seizure, Psych: Negative for depression, anxiety, suicide ideation, homicidal ideation, and hallucinations, Allergy/Immunology: Negative for hives, rash, and allergies, Endocrine: Negative for neck swelling, polydipsia, polyuria, polyphagia, and marked weight changes, Hematologic/Lymphatic: Negative for swollen nodes, abnormal bleeding, and unusual bruising, 21:27 All other systems are negative, Exam: 21:27 Constitutional: This is a well developed, well nourished patient who is awake, alert, sp3 and in no acute distress. Head/Face: Normocephalic, atraumatic. Eyes: Pupils equal round and reactive to light, extra-ocular motions intact. Lids and lashes normal. Conjunctiva and sclera are non-icteric and not injected. Cornea within normal limits. Periorbital areas with no swelling, redness, or edema. Neck: Trachea midline, no thyromegaly or masses palpated, and no cervical lymphadenopathy. Supple, full range of motion without nuchal rigidity, or vertebral point tenderness. No Meningismus. Chest/axilla: Normal chest wall appearance and motion. Nontender with no deformity. No lesions are appreciated. Cardiovascular: Regular rate and rhythm with a normal S1 and S2. No gallops, murmurs, or rubs. Normal PMI, no JVD. No pulse deficits. Respiratory: Lungs have equal breath sounds bilaterally, clear to auscultation and percussion. No rales, rhonchi or wheezes noted. No increased work of breathing, no retractions or nasal flaring. Skin: Warm, dry with normal turgor. Normal color with no rashes, no lesions, and no evidence of cellulitis. MS/ Extremity: Pulses equal, no cyanosis. Neurovascular intact. Full, normal range of motion. Neuro: Awake and alert, GCS 15, oriented to person, place, time, and situation. Cranial nerves II-XII grossly intact. Motor strength 5/5 in all extremities. Sensory grossly intact. Cerebellar exam normal. Normal gait. Psych: Awake, alert, with orientation to person, place and time. Behavior, mood, and affect are within normal limits. 21:27 Abdomen/GI: Patient has left-sided abdominal pain without peritoneal signs, rebound or guarding. Left flank also demonstrates ecchymoses. No right-sided abdominal pain. No rib pain on the chest. No signs of head injury noted., Vital Signs: 20:57 BP 143 / 71; Pulse 101; Resp 18; Temp 98.6; Pulse Ox 98% ; Weight 68.04 kg; ss 22:16 BP 144 / 71; Pulse 88; Resp 18; Pulse Ox 99% ; cp4 23:01 BP 155 / 71; Pulse 91; Resp 16; Temp 98.1; Pulse Ox 100% ; dd2 Sumner Coma Score: 21:18 Eye Response: spontaneous(4). Motor Response: obeys commands(6). Verbal Response: cp4 oriented(5). Total: 15. Trauma Score (Adult): 21:18 Eye Response: spontaneous(1); Verbal Response: oriented(1); Motor Response: obeys cp4 commands(2); Systolic BP: > 89 mm Hg(4); Respiratory Rate: 10 to 29 per min(4); Sumner Score: 15; Trauma Score: 12 MDM: 21:04 Medical Screening Exam initiated sp3 21:27 Data reviewed: vital signs, nurses notes, radiologic studies. ED course: 88-year-old sp3 female with left flank and abdominal pain after mechanical fall. CT scan of the abdomen pelvis pending. She states she has to drive home and declined any pain medication. Vital signs are normal. If scan is negative we will safely discharge patient home.. 22:56 ED course: CT scan demonstrates abdominal wall contusion without other abnormality. We sp3 will safely discharge home at this time.. 12/27 21:18 Order name: CT Abd/Pelvis - Without Contrast; Complete Time: 22:56 sp3 Administered Medications: 21:25 Drug: Acetaminophen PO 650 mg PO once Route: PO; cp4 21:55 Follow up: Response: No adverse reaction dd2 Disposition Summary: 12/28/23 22:57 Discharge Ordered Notes: Location: Home sp3 Condition: Stable sp3 Diagnosis - Abdominal wall contusion sp3 Followup: sp3 - With: Private Physician - When: Upon discharge from the Emergency Department - Reason: Continuance of care Discharge Instructions: - Discharge Summary Sheet sp3 - Contusion sp3 Forms: - Medication Reconciliation Form sp3 - Antibiotic Education sp3 - Prescription Opioid Use sp3 - Patient Portal Instructions sp3 - Leadership Thank You Letter sp3 Signatures: Dispatcher [employer] Jasmine Hayward RN RN Neli Gtz MD MD sp3 Deepthi Tom cp4 RADHA MCLEOD RN dd2
--- NOTE | 2023-12-28 22:58 | ER ---
Nurse's Notes [facility] Name: Monique German Age: 88 yrs Sex: Female : 1935 Arrival Date: 12/28/2023 Time: 20:25 Bed 3 Private MD: Diagnosis: Abdominal wall contusion Presentation: 12/27 20:57 Chief complaint: Patient states: Patient presents in the ED c/o left sided lower back ss pain after a fall around 1530. Coronavirus screen: At this time, the client does not indicate any symptoms associated with coronavirus-19. Ebola Screen: No symptoms or risks identified at this time. Initial Sepsis Screen: Does the patient meet any 2 criteria? No. Patient's initial sepsis screen is negative. Does the patient have a suspected source of infection? No. Patient's initial sepsis screen is negative. Risk Assessment: Do you want to hurt yourself or someone else? Patient reports no desire to harm self or others. Onset of symptoms was December 28, 2023. 20:57 Method Of Arrival: Ambulatory ss 20:57 Acuity: NBA 3 ss 23:46 Care prior to arrival: None. Mechanism of Injury: Fall FROM STANDING. dd2 Historical: - Allergies: 20:59 Demerol; ss - Home Meds: 20:59 amlodipine 5 mg tablet daily [Active]; aspirin daily daily [Active]; atorvastatin 40mg ss nightly [Active]; clinsamvcin HCL 300 mg twice a day [Active]; clopidrogel 75mg daily [Active]; Detrol LA 4 mg Oral cp24 1 cap once daily [Active]; imatinib mesylate 200mg daily [Active]; levothyroxine 100 mcg tab 1 tab once daily [Active]; Lotrel 5-10 mg Oral cap 1 cap once daily [Active]; lumigan 1 drop each eye nightly [Active]; metformin 500 mg Oral tr24 2 tabs [Active]; metoprolol tartrate 12.5mg BID [Active]; Potassium Chloride Oral [Active]; potassium daily [Active]; preser vision areds daily [Active]; PreserVision AREDS Oral [Active]; simvastatin 20 mg Oral tab 1 tab once daily [Active]; tizanidine 4mg daily [Active]; tolterodine 4mg daily [Active]; torsemide 20 mg Oral tab 1 tab once daily [Active]; torsemide 20mg daily [Active]; Zanaflex 4 mg Oral tab 1 tab daily [Active]; vitamin B12 1000mcg daily [Active]; - PMHx: 20:59 ADD/ADHD; Hyperlipidemia; Hypertension; Hypothyroidism; Leukemia; Myocardial ss infarction; Pulmonary Embolism; - PSHx: 20:59 Appendectomy; Operative procedure on knee; Tonsillectomy; ss - Immunization history: Last tetanus immunization: - up to date. - Infectious Disease History:: Denies. - Social history:: Smoking status: Patient denies any tobacco usage or history of. Screenin:18 Abuse screen: Denies threats or abuse. Nutritional screening: No deficits noted. cp4 Tuberculosis screening: No symptoms or risk factors identified. 21:21 [facility] ED Fall Risk Assessment (Adult) History of falling in the last 3 months, cp4 including since admission Yes- single mechanical fall (1 pt) Confusion or Disorientation No (0 pts) Intoxicated or Sedated No (0 pts) Impaired Gait No (0 pts) Mobility Assist Device Used No (0 pt) Altered Elimination No (0 pt) Score/Fall Risk Level 0 - 2 = Low Risk Oriented to surroundings, Maintained a safe environment, Assessed \T\ reinforced patient's understanding of fall precautions, Hourly rounding (assess needs \T\ fall precautionary measures) done. Primary Survey: 21:18 NO uncontrolled hemorrhage observed. Breathing/Chest: Spontaneous respiratory effort, cp4 equal unlabored respirations, breath sounds clear bilaterally, regular pattern, symmetrical chest rise and fall. Circulation: No external hemorrhage present. Regular and strong central pulse, skin warm/dry/normal color. Disability Pupils are equal, round, reactive to light and accommodation. Client is alert. Exposure/Environment: A warming method has been applied: A warm blanket has been provided to the patient. Reassessment Alertness and Airway: Awake and alert. The airway is patent. Breathing: Spontaneous respiratory effort, equal unlabored respirations, breath sounds clear bilaterally, regular pattern with symmetrical chest rise and fall. Circulation: No external hemorrhage noted. Regular and strong central pulse, skin warm/dry/normal color. Disability: Pupils Pupils are equal, round, reactive to light and accomodation. Alert. Assessment: 21:18 General: Appears in no apparent distress. uncomfortable, Behavior is calm, cooperative, cp4 appropriate for age. Pain: Complains of pain in left flank Pain currently is 6 out of 10 on a pain scale. Neuro: Level of Consciousness is awake, alert, obeys commands, Oriented to person, place, time, situation. EENT: No signs and/or symptoms were reported regarding the EENT system. Cardiovascular: Patient's skin is warm and dry. Respiratory: Airway is patent Respiratory effort is even, unlabored. GI: Abdomen is round non-distended, Bowel sounds present X 4 quads. : No signs and/or symptoms were reported regarding the genitourinary system. Derm: No signs and/or symptoms reported regarding the dermatologic system. Musculoskeletal: Reports pain in left flank. 21:21 Reassessment: No changes from previously documented assessment. cp4 21:36 Derm: Wound noted posterior aspect of left lateral abdomen Wound is large superficial dd2 abrasion noted Bruising that is bright red, on posterior aspect of left lateral abdomen. Injury Description: Abrasion sustained to posterior aspect of left lateral abdomen. Vital Signs: 20:57 BP 143 / 71; Pulse 101; Resp 18; Temp 98.6; Pulse Ox 98% ; Weight 68.04 kg; ss 22:16 BP 144 / 71; Pulse 88; Resp 18; Pulse Ox 99% ; cp4 23:01 BP 155 / 71; Pulse 91; Resp 16; Temp 98.1; Pulse Ox 100% ; dd2 [place] Coma Score: 21:18 Eye Response: spontaneous(4). Motor Response: obeys commands(6). Verbal Response: cp4 oriented(5). Total: 15. Trauma Score (Adult): 21:18 Eye Response: spontaneous(1); Verbal Response: oriented(1); Motor Response: obeys cp4 commands(2); Systolic BP: > 89 mm Hg(4); Respiratory Rate: 10 to 29 per min(4); [place] Score: 15; Trauma Score: 12 ED Course: 20:31 Patient arrived in ED. gm2 20:34 Neli Humphrey MD is Attending Physician. sp3 20:59 Triage completed. ss 21:18 Deepthi Tom is Primary Nurse. cp4 21:18 Bed in low position. Call light in reach. Side rails up X2. cp4 21:18 Patient maintains SpO2 saturation greater than 95% on room air. cp4 21:21 Arm band placed on right wrist. Patient placed in waiting room. cp4 21:21 Provided Education on: fall. cp4 21:21 No provider procedures requiring assistance completed. cp4 21:38 Wound care: to abrasion, located on posterior aspect of left lateral abdomen was dd2 cleaned with with NS, dressed with Neosporin, NON-STICK PAD, Patient tolerated well. 22:30 CT Abd/Pelvis - Without Contrast In Process Unspecified. EDMS 23:45 Patient did not have IV access during this emergency room visit. dd2 Administered Medications: 21:25 Drug: Acetaminophen PO 650 mg PO once Route: PO; cp4 21:55 Follow up: Response: No adverse reaction dd2 Medication: 21:21 VIS not applicable for this client. cp4 Intake: 21:18 PO: 0ml; Total: 0ml. cp4 Outcome: 22:57 Discharge ordered by . sp3 23:45 Discharged to home ambulatory, dd2 23:45 Condition: stable 23:45 Discharge instructions given to patient, Instructed on discharge instructions, follow up and referral plans. safety practices, Demonstrated understanding of instructions, follow-up care, SAFETY PRACTICES - FALL RISK 23:46 Patient's length of stay was not longer than 2 hours. dd2 23:46 Patient left the ED. dd2 Signatures: Dispatcher [employer] EDJasmine Vogel, RN RN Neli Humphrey MD MD sp3 Deepthi Tom cp4 Abbi Brooks 2 RADHA MCLEOD RN RN dd2
[2023-12-29 03:42] VITALS: BP 155/71; TEMP 98.1; O2SAT 100
== END 2023-12-28 23:46 | disposition home or self-care (01) ==
LOC: ER 20:25
DX: S30.1XXA Contusion of abdominal wall, initial encounter (principal); M54.50 Low back pain, unspecified; W18.30XA Fall on same level, unspecified, initial encounter
CPT/HCPCS: 74176; 99283

== ENCOUNTER 2024-11-14 08:41 | Emergency (ER) | payer OTHER ==
--- OUTSIDE RECORDS SUMMARY | 2024-11-14 08:46 | XMS REPORT | Clinical Summary ---
Author Name Unknown Organization [facility] Address [address] [place] [address] Care Team Providers Care Drilling Assistant Name Role Phone Raulito Hankins MD Primary Care Provider + [phone] Mar Oglesby MD Unavailable Allergies Active Allergy [...] (12.5 mg) by mouth twice daily. Active levothyroxine (SYNTHROID, LEVOTHROID) 100 mcg tablet Take 1 tablet (100 mcg) by mouth daily. Active aspirin 81 mg EC tablet Take 1 tablet (81 mg) by mouth once. Active cyanocobalamin (VITAMIN B-12) 1000 mcg tablet Take 1 tablet (1,000 mcg) by mouth daily. Active potassium 99 mg tab Take 99 mg by mouth daily. Active vit C/E/Zn/coppr/l utein/zeaxan (PRESERVISION AREDS-2 ORAL) Take 1 tablet by mouth daily. Active multivit-min/i dakotah/folic/lute in (CENTRUM SILVER WOMEN ORAL) Take 1 tablet by mouth daily. Active simvastatin (ZOCOR) 20 mg tablet Take 1 tablet (20 mg) by mouth at bedtime. 4 Active tiZANidine (ZANAFLEX) 4 mg tablet Take 1 tablet (4 mg) by mouth daily. Active lisinopril (PRINIVIL,ZEST RIL) 10 mg tablet Take 1 tablet (10 mg) by mouth every morning. 4 Active IMATinib (Gleevec) 100 mg tabletIndicati ons:Chronic myeloid leukemia BCR/ABL-positi ve not having achieved remission Take 2 tablets (200 mg) by mouth twice daily. 60 tablet 11 5 Active torsemide (DEMADEX) 20 mg tablet Take 1 tablet (20 mg) by mouth daily. 03/04/19 25 Discontinued IMATinib (Gleevec) 400 mg tabletIndicati ons:Chronic myeloid leukemia BCR/ABL-positi ve not having achieved remission Take 1 tablet (400 mg) by mouth daily. 30 tablet 11 3 03/04/19 25 Discontinued IMATinib (Gleevec) 100 mg tabletIndicati ons:Chronic myeloid leukemia BCR/ABL-positi ve not having achieved remission Take 2 tablets (200 mg) by mouth twice daily. 120 tablet 11 4 03/04/19 25 Discontinued tolterodine (DETROL LA) 4 mg 24 hr capsule Take 1 capsule (4 mg) by mouth daily. 03/04/19 25 Discontinued Active Problems Patient Care Coordination No te Formatting of this note migh t be different from the original. Gleevec 200 mg daily started 04/22/2021. 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 10/07/2024 8:23 AM CDT - 10/07/2024 11:59 PM CDT Hospital En[facility] [address] Main Bldg, 8th [place] [address] Hannah Mcnamara PA-C 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 Discharge Disposition: Home 10/07/2024 7:15 AM CDT - 10/07/2024 8:22 AM CDT Hospital Encounter [facility] - [address] Bldg, 8th [place] [address] Kesha Pineda APRN 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 Discharge Disposition: Home 10/07/2024 Orders Only [facility] [address] [place] [address] Main Bldg, 8th [place] [address] Hannah Mcnamara, BRENDA 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 (Primary Dx) 10/07/2024 Travel 06/10/2024 11:30 AM CDT Telephone [facility] [address] [place], [place] [address]vd Main Bldg, 8th [place] [address] Raulito Hankins MD 06/03/2024 9:45 AM CDT [facility] [address] [place] [address] Main Bldg, 8th [place] [address] Raulito Hankins MD 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 06/03/2024 8:15 AM CDT - 06/03/2024 11:59 PM CDT Hospital Encounter [facility] [address] [place], [place] [address] [place] [address] Magi Cole PA 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 Discharge Disposition: Home 06/03/2024 Orders Only [facility] [address] [place], [place] [address] Main Bldg, 8th [place] [address] Kesha Pineda APRN 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 (Primary Dx) 06/03/2024 Orders Only [facility] [address] [place], [place] [address] Main Bldg, 8th [place] [address] Kesha Pineda APRN 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 (Primary Dx) 06/03/2024 Travel 03/04/2024 10:30 AM BRIM EDGE TRIMMER Follow[facility]Up [facility] [address] [place] [address] Main Bldg, 8th [place] [address] Raulito Hankins MD 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 03/04/2024 8:41 AM BRIM EDGE TRIMMER - 03/04/2024 11:59 PM BRIM EDGE TRIMMER Hospital Encounter [facility] - [place] [address] [facility] Main dg, 8th [place] [address] Kesha Pineda APRN 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 Discharge Disposition: Home 03/04/2024 Orders Only [facility] [address] [place] [address] Main dg, 8th [place] [address] Magi Cole PA 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 (Primary Dx) 03/04/2024 Travel after 11/15/2023 Surgical History Surgery Date Site/Laterality Comments TOTAL [...] on file Legal Sex Female 8:38 AM BRIM EDGE TRIMMER Gender Identity Female 04/26/2021 5:02 PM CDT Sexual Orientation Choose not to disclose 2021 5:02 PM CDT 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 Not on file Not on file Not on file Obstetrics History Last Filed Vital Signs Vital Sign Reading Time Taken Comments Blood Pressure 102/64 10/07/2024 7:37 AM CDT Pulse 79 10/07/2024 7:37 AM CDT Temperature 36.7 °C (98.1 °F) 10/07/2024 7:37 AM CD T Respiratory Rate 17 10/07/2024 7:37 AM CDT Oxygen Saturation 99% 10/07/2024 7:37 AM CDT Inhaled Oxygen Concentration - - Weight 66.9 kg (147 lb 7.8 oz) 10/07/2024 7:37 A M CDT Height 153.1 cm (5' 0.28") 03/04/2024 9:07 AM CS T Body Mass Index 28.54 03/04/2024 9:07 AM BRIM EDGE TRIMMER Plan of Treatment Upcoming Encounters Date Type Department Care Team (Late st Contact Info) Description 02/10/2025 7:30 AM BRIM EDGE TRIMMER Appointment [facility] [address] [place] [address] Hannah Mcnamara PA-C [address] [place] [phone] [email or web address] 02/10/2025 9:30 AM BRIM EDGE TRIMMER [facility] [address] [place] [address], 8th [place] [address] Raulito Hankins MD [address] [place] [phone] [email or web address] Health Maintenance Due Date Last Done Comments COVID-19 Vaccine (#1) 12/01/1940 Pneumococcal Vaccine: 50+ Years (1 of 2 - PCV) 955 Influenza Vaccine (#1) 2024 Procedures Procedure Name Priority Date/Time Associated Diagnosis Comments .CBC Routine 10/07/2024 8:28 AM CDT 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 COMPLETE BLOOD COUNT W/ DIFFERENTIAL Routine 10/07/2024 8:28 AM CDT 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 TYPE AND SCREEN Routine 10/07/2024 8:28 AM CDT 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 HP T(9;22) BCR/ABL1 QUANTITATIVE PCR INTERPRETATION AND REPORT Routine 10/07/2024 7:28 AM CDT 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 ASPARTATE AMINOTRANSFERASE Routine 10/07/2024 7:28 AM CDT 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 MAGNESIUM LEVEL Routine 10/07/2024 7:28 AM CDT 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 ELECTROLYTE PANEL Routine 10/07/2024 7:2 8 AM CDT 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 ALANINE AMINOTRANSFERASE Routine 025 7:28 AM CDT 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 LACTATE DEHYDROGENASE Routine 10/07/2024 7:28 AM CDT 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 ALKALINE PHOSPHATASE Routine 10/07/2024 7:28 AM CDT 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 FRACTIONATED BILIRUBIN Routine 7:28 AM CDT 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 URIC ACID Routine 10/07/2024 7:28 AM CDT 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 CREATININE Routine 10/07/2024 7:28 AM CDT 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 BLOOD UREA NITROGEN Routine 10/07/2024 7 :28 AM CDT 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 GLUCOSE, RANDOM Routine 10/07/2024 7:28 AM CDT 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 PHOSPHORUS LEVEL Routine 10/07/2024 7:28 AM CDT 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 CALCIUM LEVEL Routine 10/07/2024 7:28 AM CDT 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 ALBUMIN LEVEL Routine 10/07/2024 7:28 AM CDT 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 TOTAL PROTEIN Routine 10/07/2024 7:28 AM CDT 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 HISTORICAL ABORH Routine 06/03/2024 9:29 AM CDT 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 LIPASE LEVEL Add-On 06/03/2024 9:20 AM CDT 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 AMYLASE LEVEL Add-On 06/03/2024 9:20 AM CDT 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 .CBC Routine 06/03/2024 9:20 AM CDT 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 JUAREZ BENÍTEZ T(9;22) BCR/ABL1 QUANTITATIVE PCR INTERPRETATION AND REPORT Routine 06/03/2024 9:20 AM CDT 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 MAGNESIUM LEVEL Routine 06/03/2024 9:20 AM CDT 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 ELECTROLYTE PANEL Routine 06/03/2024 9:2 0 AM CDT 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 ALANINE AMINOTRANSFERASE Routine 025 9:20 AM CDT 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 LACTATE DEHYDROGENASE Routine 06/03/2024 9:20 AM CDT 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 ALKALINE PHOSPHATASE Routine 06/03/2024 9:20 AM CDT 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 FRACTIONATED BILIRUBIN Routine 9:20 AM CDT 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 URIC ACID Routine 06/03/2024 9:20 AM CDT 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 CREATININE Routine 06/03/2024 9:20 AM CDT 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 BLOOD UREA NITROGEN Routine 06/03/2024 9 :20 AM CDT 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 GLUCOSE, RANDOM Routine 06/03/2024 9:20 AM CDT 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 PHOSPHORUS LEVEL Routine 06/03/2024 9:20 AM CDT 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 CALCIUM LEVEL Routine 06/03/2024 9:20 AM CDT 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 ALBUMIN LEVEL Routine 06/03/2024 9:20 AM CDT 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 TOTAL PROTEIN Routine 06/03/2024 9:20 AM CDT 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 COMPLETE BLOOD COUNT W/ DIFFERENTIAL Routine 06/03/2024 9:20 AM CDT 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 TYPE AND SCREEN Routine 06/03/2024 9:20 AM CDT 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 .CBC Routine 03/04/2024 9:01 AM BRIM EDGE TRIMMER 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 RETICULOCYTE COUNT AUTOMATED Routine 03/04/2024 9:01 AM BRIM EDGE TRIMMER 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 JUAREZ BENÍTEZ T(9;22) BCR/ABL1 QUANTITATIVE PCR INTERPRETATION AND REPORT Routine 03/04/2024 9:01 AM BRIM EDGE TRIMMER 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 COMPLETE BLOOD COUNT W/ DIFFERENTIAL Routine 03/04/2024 9:01 AM BRIM EDGE TRIMMER 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 ASPARTATE AMINOTRANSFERASE Routine 03/04/2024 9:01 AM BRIM EDGE TRIMMER 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 MAGNESIUM LEVEL Routine 03/04/2024 9:01 AM BRIM EDGE TRIMMER 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 ELECTROLYTE PANEL Routine 03/04/2024 9:0 1 AM BRIM EDGE TRIMMER 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 ALANINE AMINOTRANSFERASE Routine 025 9:01 AM BRIM EDGE TRIMMER 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 LACTATE DEHYDROGENASE Routine 03/04/2024 9:01 AM BRIM EDGE TRIMMER 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 ALKALINE PHOSPHATASE Routine 03/04/2024 9:01 AM BRIM EDGE TRIMMER 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 FRACTIONATED BILIRUBIN Routine 9:01 AM BRIM EDGE TRIMMER 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 URIC ACID Routine 03/04/2024 9:01 AM BRIM EDGE TRIMMER 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 CREATININE Routine 03/04/2024 9:01 AM BRIM EDGE TRIMMER 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 BLOOD UREA NITROGEN Routine 03/04/2024 9 :01 AM BRIM EDGE TRIMMER 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 GLUCOSE, RANDOM Routine 03/04/2024 9:01 AM BRIM EDGE TRIMMER 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 PHOSPHORUS LEVEL Routine 03/04/2024 9:01 AM BRIM EDGE TRIMMER 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 Pathologist [facility] White Blood Cell 7.2 4.1 - 10.5 K/uL 10/07/2024 8:41 AM CDT [facility] Red Blood Cell 2.93(L) 3.99 - 5.46 M/uL 10/07/2024 8:41 AM CDT [facility] Hemoglobin 10.3(L) 12.2 - 15.3 g/dL 10/07/2024 8:41 AM [facility] Hematocrit 30.7(L) 36.4 - 46.8 % 10/07/2024 8:41 AM [facility] Mean Cell Volume 105(H) 82 - 99 fL 10/07/2024 8:41 AM [facility] Mean Cell Hemoglobin 35.2(H) 26.6 - 33.2 pg 10/07/2024 8:41 AM [facility] Mean Cell Hemoglobin Concentration 33.6 31.1 - 35.2 g/dL 10/07/2024 8:41 AM [facility] RDW-SD 54.5(H) 37.5 - 49.7 fL 10/07/2024 8:41 AM [facility] Red Cell Diameter Width 14.3 11.6 - 15.5 % 10/07/2024 8:41 AM [facility] Platelet 228 160 - 397 K/uL 10/07/2024 8:41 AM [facility] Mean Platelet Volume 9.9 9.1 - 12.6 fL 10/07/2024 8:41 AM [facility] INRBC 0.0 0.0 - 0.1 /100 WBC 10/07/2024 8:41 AM [facility] Comment: The INRBC value reflects the enumeration of nucleated red blood cells contained in a 200uL sample of whole blood analyzed by the instrument. This value may differ from the NRBC value reported in a manual diff, which is based on a 100 cell differential. Neutrophil % 57.7 43.2 - 72.7 % 10/07/2024 8:41 AM [facility] Lymphocyte % 24.2 16.8 - 46.2 % 10/07/2024 8:41 AM [facility] Monocyte % 10.1 5.1 - 12.5 % 10/07/2024 8:41 AM [facility] Eosinophil % 6.9(H) 0.4 - 6.3 % 10/07/2024 8:41 AM [facility] Basophil % 1.0 0.2 - 1.4 % 10/07/2024 8:41 AM CDT [facility] IGRE % 0.1 0.1 - 1.5 % 10/07/2024 8:41 AM CDT [facility] Comment:The IGRE% includes M etamyelocytes, Myelocytes and Promyelocytes. Neutrophil Abs 4.18 1.95 - 7.25 K/uL 10/07/2024 8:41 AM CDT [facility] Lymphocyte Abs 1.75 1.01 - 3.24 K/uL 10/07/2024 8:41 AM CDT [facility] Monocyte Abs 0.73 0.24 - 0.85 K/uL 10/07/2024 8:41 AM CDT [facility] Eosinophil Abs 0.50 0.02 - 0.50 K/uL 10/07/2024 8:41 AM CDT [facility] Basophil Abs 0.07 0.02 - 0.09 K/uL 10/07/2024 8:41 AM CDT [facility] IG Abs 0.01 0.01 - 0.12 K/uL 10/07/2024 8:41 AM CDT [facility] Blood Peripheral blood specimen / Unknown Venipuncture / Unknown 10/07/2024 8:28 AM CDT 10/07/2024 8:35 AM CDT us Hannah Mcnamara PA-C LAB BLOOD ORDERABLES Benita l Result Performing Organization Address City/State/[facility] Co de Phone Number [address] [address], * Type and Screen (10/07/2024 8:28 AM CDT) Only the most recent of2 resultswithin the time period is included. ABORh B POS 10/07/2024 8:23 AM CDT [facility] ABSC Negative 10/07/2024 8:23 AM CDT [facility] Clot Expiration 10/10/2024 23:59 10/07/2024 8:23 AM CDT [facility] Historical Record Check Complete 10/07/2024 8:23 AM CDT [facility] Blood Peripheral blood specimen / Unknown Venipuncture / Unknown 10/07/2024 8:28 AM CDT 10/07/2024 8:43 AM CDT Hannah Mcnamara PA-C BLOOD BANK TEST ORDERABLE S Final Result [facility] [address] [place] [address], [place] * Glucose, Random (10/07/2024 7:28 AM CDT) Only the most recent of3 resultswithin the time period is included. Glucose Random 149 70 - 199 mg/dL 10/07/2024 8:28 AM CDT [facility] Blood Peripheral blood specimen / Unknown Venipuncture / Unknown 10/07/2024 7:28 AM CDT 10/07/2024 7:47 AM CDT Narrative [facility] - 10/07/2024 8:28 AM CDT Effective 09/01/15, the glucose reference intervals have been updated based on [place] Diabetes [employer] guidelines (Standards of Medical Care in Diabetes 2016. Diabetes Care 2016; 39: S13-S22). Fasting blood glucose: Normal: 70-99 mg/dL Impaired fasting glucose (increased risk for diabetes or pre-diabetes): 100-125 mg/dL Diabetes mellitus: >/=126 mg/dL Random blood glucose: Normal: 70-199 mg/dL Note: Random glucose >100 mg/dL is associated with increased risk for diabetes Kesha Pineda STOCK HANDLER LAB BLOOD ORDERABLES Final Result [facility] [address] [place] [address], [place] * Fractionated Bilirubin (10/07/2024 7:28 AM CDT) Only the most recent of3 resultswithin the time period is included. Bilirubin Direct 10/08/19 8:28 AM CDT [facility] Comment: Direct and indirect bilirubin will not be reported when Total bilirubin result is <0.3 mg/dL Indocyanine Green (ICG) may cause falsely elevated bilirubin results. Total and direct bilirubin must not be measured from samples containing indocyanine green. Bilirubin Indirect 2024 8:28 AM CDT [facility] Comment:Direct and indirect bilirubin will not be reported when Total bilirubin result is <0.3 mg/dL Bilirubin Total <0.3 0.0 - 1.2 mg/dL 10/07/2024 8:28 AM CDT [facility] Comment: Direct and indirect bilirubin will not be reported when Total bilirubin result is <0.3 mg/dL Indocyanine Green (ICG) may cause falsely elevated bilirubin results. Total and direct bilirubin must not be measured from samples containing indocyanine green. False elevation of total bilirubin can be seen in patients with IgG concentrations above 28 g/L. Blood Peripheral blood specimen / Unknown Venipuncture / Unknown 10/07/2024 7:28 AM CDT 10/07/2024 7:47 AM CDT Kesha Pineda APRN LAB BLOOD ORDERABLES Final Result [id number] [place] [address], * t(9;22) BCR/ABL1 Quantitative PCR Interpretation and Report (10/07/2024 7:28 AM CDT) Only the most recent of3 resultswithin the time period is included. Percent of BCR-ABL1 to ABL1 2.85 % 10/10/2024 11:56 AM CDT [facility] BCR/ABL1 Interpretation A b3a2 BCR-ABL1 fusion transcript coding for the 210kDa BCR-ABL1 fusion protein is detected by quantitative real-time RT-PCR. 10/10/2024 11:56 AM CDT [facility] BCR/ABL1 Methodology Quantitative real-time [...] minimal residual disease (MRD). Test performed on 10/10/2024 10/10/2024 11:56 AM CDT [facility] ASR DISCLAIMER This test was developed and its performance characteristics determined by the [facility] ([facility]) at [facility]. It has not been cleared or approved by the U.S. Food and Drug Administration (FDA). The FDA has determined that such clearance or approval is not necessary. This test is used for clinical purposes. This laboratory is certified under the Clinical Laboratory Improvement Act (CLIA) of 1988 to perform high complexity clinical laboratory testing. 10/10/2024 11:56 AM CDT [facility] Pathologist Signature . 10/10/2024 11:56 AM CDT [facility] Blood Peripheral blood specimen / Unknown Venipuncture / Unknown 10/07/2024 7:28 AM CDT 10/07/2024 7:47 AM CDT Kesha Pineda APRN [facility] S (JUAREZ BENÍTEZ) Final Result [facility] [address] [place] [address], [facility] [address] [place] [address], [place] * Uric Acid (10/07/2024 7:28 AM CDT) Only the most recent of3 resultswithin the time period is included. Uric Acid 5.3 2.4 - 5.7 mg/dL 10/07/2024 8:28 AM CDT [facility] Blood Peripheral blood specimen / Unknown Venipuncture / Unknown 10/07/2024 7:28 AM CDT 10/07/2024 7:47 AM CDT Kesha [employer] LAB BLOOD ORDERABLES Final Result [address] [address], [place] * (ABNORMAL) BUN (10/07/2024 7:28 AM CDT) Only the most recent of3 resultswithin the time period is included. BUN 32(H) 6 - 23 mg/dL 10/07/2024 8:28 AM CDT [facility] Blood Peripheral blood specimen / Unknown Venipuncture / Unknown 10/07/2024 7:28 AM CDT 10/07/2024 7:47 AM CDT [employer] LAB BLOOD [place] [address], [place] * Alanine Aminotransferase (10/07/2024 7:28 AM CDT) Only the most recent of3 resultswithin the time period is included. ALT 19 <=33 U/L 10/07/2024 8:28 AM CDT [facility] Blood Peripheral blood specimen / Unknown Venipuncture / Unknown 10/07/2024 7:28 AM CDT 10/07/2024 7:47 AM CDT [employer] LAB BLOOD ORDERABLES Final Result [address] [address], [place] * (ABNORMAL) Aspartate Aminotransferase (10/07/2024 7:28 AM CDT) Only the most recent of2 resultswithin the time period is included. AST 48(H) <=32 U/L 10/07/2024 8:28 AM CDT [facility] Comment:Specimen is hemolyze d. Results may be falsely elevated. Repeat test if needed. Blood Peripheral blood specimen / Unknown Venipuncture / Unknown 10/07/2024 7:28 AM CDT 10/07/2024 7:47 AM CDT Kesha Pineda APRN LAB BLOOD ORDERABLES Final Result [address] [address], [place] * Total Protein (10/07/2024 7:28 AM CDT) Only the most recent of3 resultswithin the time period is included. Tot Protein 7.0 6.4 - 8.3 gm/dL 10/07/2024 8:28 AM CDT [facility] Blood Peripheral blood specimen / Unknown Venipuncture / Unknown 10/07/2024 7:28 AM CDT 10/07/2024 7:47 AM CDT Narrative [facility] - 10/07/2024 8:28 AM CDT Reference range established based on adult population Kesha Pineda APRN LAB BLOOD ORDERABLES Final Result Performing Organization Address City/[facility]/[place] [address], [place] * Phosphorus Level (10/07/2024 7:28 AM CDT) Only the most recent of3 resultswithin the time period is included. Phosphorus Level 3.8 2.5 - 4.5 mg/dL 10/07/2024 8:28 AM CDT [facility] Blood Peripheral blood specimen / Unknown Venipuncture / Unknown 10/07/2024 7:28 AM CDT 10/07/2024 7:47 AM CDT us Kesha Pineda STOCK HANDLER LAB BLOOD ORDERABLES Final Result Performing Organization Address City/[facility]/ZIP Co de Phone Number [address] [address], [place] * Alkaline Phosphatase (10/07/2024 7:28 AM CDT) Only the most recent of3 resultswithin the time period is included. Alkaline Phosphatase 40 35 - 104 U/L 10/07/2024 8:28 AM CDT [facility] Blood Peripheral blood specimen / Unknown Venipuncture / Unknown 10/07/2024 7:28 AM CDT 10/07/2024 7:47 AM CDT [facility] [employer] LAB BLOOD ORDERABLES Final Result Performing Organization Address [facility] Co de Phone Number [address] [address], [place] * Magnesium Level (10/07/2024 7:28 AM CDT) Only the most recent of3 resultswithin the time period is included. Magnesium Level 2.4 1.6 - 2.6 mg/dL 10/07/2024 8:28 AM CDT [facility] Blood Peripheral blood specimen / Unknown Venipuncture / Unknown 10/07/2024 7:28 AM CDT 10/07/2024 7:47 AM CDT [facility] Final Result [address] [address], [place] * (ABNORMAL) LDH (10/07/2024 7:28 AM CDT) Only the most recent of3 resultswithin the time period is included. LDH 500(H) 135 - 214 U/L 10/07/2024 8:32 AM CDT [facility] Comment:Specimen is hemolyze d. Results may be falsely elevated. Repeat test if needed. Blood Peripheral blood specimen / Unknown Venipuncture / Unknown 10/07/2024 7:28 AM CDT 10/07/2024 7:47 AM CDT Narrative [facility] - 10/07/2024 8:32 AM CDT Results greater than 1651 U/L may not be reliable due to matrix effect with extended dilution as it exceeds the ear nose throat physician's recommended limit. Caution should be exercised when interpreting such values and done in conjunction with clinical context. Kesha Pineda APRN LAB BLOOD ORDERABLES Final Result [facility] [address] [place] [address], * (ABNORMAL) Creatinine (10/07/2024 7:28 AM CDT) Only the most recent of3 resultswithin the time period is included. Creatinine 1.28(H) 0.51 - 0.95 mg/dL 10/07/2024 8:28 AM CDT [facility] eGFR 40(L) >=60 mL/min/1. 73 sq. m 10/07/2024 8:28 AM CDT [facility] Comment: The eGFRcr is calculated with [...] blood specimen / Unknown Venipuncture / Unknown 10/07/2024 7:28 AM CDT 10/07/2024 7:47 AM CDT [employer] ST[employer] HAND[employer]ER LAB BLOOD ORDERABLES Final Result [address] [address], [place] * Calcium Level (10/07/2024 7:28 AM CDT) Only the most recent of3 resultswithin the time period is included. Calcium Level Total 9.6 8.2 - 10.2 mg/dL 10/07/2024 8:28 AM CDT [facility] Blood Peripheral blood specimen / Unknown Venipuncture / Unknown 10/07/2024 7:28 AM CDT 10/07/2024 7:47 AM CDT [employer] LAB BLOOD ORDERABLES Final Result Performing Organization Address City/[facility]/ZIP Co de Phone Number [address] [address], [place] * Albumin Level (10/07/2024 7:28 AM CDT) Only the most recent of3 resultswithin the time period is included. Albumin Level 4.3 3.5 - 5.2 gm/dL 10/07/2024 8:28 AM CDT [facility] Blood Peripheral blood specimen / Unknown Venipuncture / Unknown 10/07/2024 7:28 AM CDT 10/07/2024 7:47 AM CDT [employer] LAB BLOOD ORDERABLES Final Result [address] [address], [place] * (ABNORMAL) Electrolyte Panel (10/07/2024 7:28 AM CDT) Only the most recent of3 resultswithin the time period is included. Sodium Level 138 136 - 145 mmol/L 10/07/2024 8:28 AM CDT [facility] Potassium Level 5.5(H) 3.4 - 4.5 mmol/L 10/07/2024 8:28 AM CDT [facility] Comment:Specimen is hemolyze d. Results may be falsely elevated. Repeat test if needed. Chloride 104 98 - 107 mmol/L 10/07/2024 8:28 AM CDT [facility] CO2 22 22 - 29 mmol/L 10/07/2024 8:28 AM CDT [facility] Anion Gap 12 4 - 14 mmol/L 10/07/2024 8:28 AM CDT [facility] Blood Peripheral blood specimen / Unknown Venipuncture / Unknown 10/07/2024 7:28 AM CDT 10/07/2024 7:47 AM CDT Kesha Pineda APRN LAB BLOOD [place] [address], * Historical ABORh (06/03/2024 9:29 AM CDT) Pathologist [facility] ABORh B POS 06/03/2024 9:30 AM CDT [facility] - [facility]SF[facility] Blood Peripheral blood specimen / Unknown 06/03/2024 9:29 AM CDT 06/03/2024 9:29 AM CDT Magi GALLEGOS BLOOD BANK TEST ORDERABLES Fi nal Result [facility]SF[facility] [address] [place] [address] [id number] [place] [address] * Lipase Level (06/03/2024 9:20 AM CDT) Pathologist [facility] Lipase Level 46 13 - 60 U/L 06/03/2024 12:19 PM CDT [facility] Blood Peripheral blood specimen / Unknown Venipuncture / Unknown 06/03/2024 9:20 AM CDT 06/03/2024 9:32 AM CDT Narrative [facility] - 06/03/2024 12:19 PM CDT Reference range established based on adult population Kesha Pineda APRN LAB BLOOD ORDERABLES Final Result [facility] Unless otherwise noted, all lab tests performed by: Division of Pathology and Laboratory Medicine [address] [place] [id number] * Amylase Level (06/03/2024 9:20 AM CDT) Pathologist [facility] Amylase Level 34 28 - 100 U/L 06/03/2024 12:19 PM CDT [facility] Blood Peripheral blood specimen / Unknown Venipuncture / Unknown 06/03/2024 9:20 AM CDT 06/03/2024 9:32 AM CDT Kesha Pineda APRN LAB BLOOD ORDERABLES Final Result Performing Organization Address City/[facility] Co de Phone Number [facility] Unless otherwise noted, all lab tests performed by: Division of Pathology and Laboratory Medicine [address] [place] [id number] * (ABNORMAL) Reticulocyte Count, Auto (03/04/2024 9:01 AM [employer]) Pathologist [facility] Reticulocyte Count Automated 1.69 0.92 - 2.71 % 03/04/2024 9:28 AM [employer] [facility] RETHE 38.5(H) 29.9 - 38.4 pg 03/04/2024 9:28 AM [employer] [facility] IRF 12.6 3.5 - 19.8 % 03/04/2024 9:28 AM [facility] Retic Absolute 0.0495 0.04 - 0.13 M/uL 03/04/2024 9:28 AM [employer] [facility] Blood Peripheral blood specimen / Unknown Venipuncture / Unknown 03/04/2024 9:01 AM [employer] EDGE [employer]MER 03/04/2024 9:20 AM [employer] Kesha Miriam MATHUR LAB BLOOD ORDERABLES Final Result [facility] Unless otherwise noted, all lab tests performed by: Division of Pathology and Laboratory Medicine [address] [place] [id number] after 11/15/2023 Insurance [employer] PPO [employer] PPO Advance Directives * Full Code (Latest Code Status on File) Date Activated Date Inactivated Comments 10/07/2024 7:19 AM Update based on Advanced Directive Documentation Care Teams Drilling Assistant Relationship Specialty Start Date End Date Raulito Hankins MD [address] [place] [id number] [email or web address] PCP - General Leukemia 04/05/21 Mar Oglesby MD [address] [address] [email or web address] PCP - External Follow Up A Hematology 04/05/21
[2024-11-14 09:33] LABS: Influenza A Ag Negative; Influenza B Ag Negative; SARS-CoV-2 Antigen Rapid Res Negative (Negative)
--- NOTE | 2024-11-14 09:35 | RAD REPORT ---
EXAM: Chest Single View HISTORY: 88 years Female COUGH COMPARISON: 10/08/2022 FINDINGS: LUNGS/PLEURA: The lungs are clear. No pleural effusions or pneumothorax. No pulmonary edema. Mild pul monary fibrotic changes. CARDIAC/MEDIASTINUM: Stable size and configuration. UPPER ABDOMEN: No significant abnormality. BONES: No acute abnormality. Soft tissue anchors in the right humeral head. LINES/TUBES/OTHER: N/A IMPRESSION: No evidence of acute cardiopulmonary disease.
--- NOTE | 2024-11-14 09:41 | ER ---
Nurse's Notes [facility] Name: Monique German Age: 88 yrs Sex: Female : 1935 Arrival Date: 11/14/2024 Time: 08:41 Bed 5 Private MD: Diagnosis: Acute upper respiratory infection, unspecified Presentation: 11/14 08:53 Chief complaint: Patient states: cough and congestion since yesterday , no fever. iw Coronavirus screen: Client presents with at least one sign or symptom that may indicate coronavirus-19. Ebola Screen: No symptoms or risks identified at this time. Initial Sepsis Screen: Does the patient meet any 2 criteria? No. Patient's initial sepsis screen is negative. Does the patient have a suspected source of infection? No. Patient's initial sepsis screen is negative. Risk Assessment: Do you want to hurt yourself or someone else? Patient reports no desire to harm self or others. Onset of symptoms was November 13, 2024. 08:53 Method Of Arrival: Ambulatory iw 08:53 Acuity: NBA 4 iw Historical: - Allergies: 08:54 Demerol; iw - PMHx: 09:10 ADD/ADHD; Hyperlipidemia; Hypertension; Hypothyroidism; Leukemia; Myocardial jl7 infarction; Pulmonary Embolism; - Immunization history:: Adult Immunizations up to date. - Infectious Disease History:: Denies. - Social history:: Smoking status: Patient denies any tobacco usage or history of. Screenin:14 [facility] ED Fall Risk Assessment (Adult) History of falling in the last 3 months, jl7 including since admission No falls in past 3 months (0 pts) Confusion or Disorientation No (0 pts) Intoxicated or Sedated No (0 pts) Impaired Gait No (0 pts) Mobility Assist Device Used No (0 pt) Altered Elimination No (0 pt) Score/Fall Risk Level 0 - 2 = Low Risk Oriented to surroundings, Maintained a safe environment. Abuse screen: Denies threats or abuse. Denies injuries from another. Nutritional screening: No deficits noted. Tuberculosis screening: No symptoms or risk factors identified. Assessment: 09:14 General: Appears in no apparent distress. uncomfortable, Behavior is calm, cooperative, jl7 appropriate for age. Pain: Denies pain. Neuro: Massey Agitation-Sedation Scale (RASS): 0 - Alert and Calm Level of Consciousness is awake, alert, obeys commands, Oriented to person, place, time, situation. Cardiovascular: Patient's skin is warm and dry. Respiratory: Airway is patent Respiratory effort is even, unlabored, Respiratory pattern is regular, symmetrical. Derm: Skin is pink, warm \T\ dry. Vital Signs: 08:53 BP 122 / 72; Pulse 72; Resp 16; Temp 98.4; Pulse Ox 99% on R/A; Weight 66.68 kg; Height iw 5 ft. 1 in. ; 10:05 BP 145 / 68; Pulse 76; Resp 19; Pulse Ox 97% ; pm7 08:53 Body Mass Index 27.78 (66.68 kg, 154.94 cm) ED Course: 08:47 Patient arrived in ED. cj3 08:51 Mariam Patiño FNP is [facility]. jh7 08:51 Darryl Apodaca MD is Attending Physician. jh7 08:54 Triage completed. iw 09:14 Lawrence Arellano, RN is Primary Nurse. jl7 09:14 Patient has correct armband on for positive identification. Provided Education on: use jl7 of call duran. 09:14 COVID swab sent to lab. Flu and/or RSV swab sent to lab. jl7 09:27 XRAY Chest (1 view) In Process Unspecified. EDMS 10:05 Patient did not have IV access during this emergency room visit. ar8 Administered Medications: No medications were administered Medication: 09:14 VIS not applicable for this client. jl7 Outcome: 09:40 Discharge ordered by . jh7 10:05 Discharged to home ambulatory, ar8 10:05 Condition: stable 10:05 Discharge instructions given to patient, Instructed on discharge instructions, follow up and referral plans. medication usage, Demonstrated understanding of instructions, follow-up care, medications, Prescriptions given X 1, 10:07 Patient left the ED. ar8 Signatures: Dispatcher [employer] Martha Stafford RN RN Lawrence Arellano RN RN jl7 Hadash, Jennifer, FNP FNP Danielle Baeza cj3 Nacho Etienne RN RN ar8 Christine Cabrera 7
--- NOTE | 2024-11-14 09:41 | EDPHYS ---
Physician Documentation [facility] Name: Monique German Age: 88 yrs Sex: Female : 1935 Arrival Date: 11/14/2024 Time: 08:41 Bed 5 Private MD: ED Physician Darryl Apodaca HPI: 11/14 08:51 This 88 yrs old Female presents to ER via Ambulatory with complaints of Cough, jh7 Congestion. 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 The patient denies any fever and states that she feels fine other than a slight cough and runny nose. She states that her daughters requested that she get checked out at the ER. Denies any chest pain, shortness of breath, or abdominal pain.. Historical: - Allergies: 08:54 Demerol; iw - PMHx: 09:10 ADD/ADHD; Hyperlipidemia; Hypertension; Hypothyroidism; Leukemia; Myocardial jl7 infarction; Pulmonary Embolism; - Immunization history:: Adult Immunizations up to date. - Infectious Disease History:: Denies. - Social history:: Smoking status: Patient denies any tobacco usage or history of. ROS: 08:51 Constitutional: Per HPI jh7 Exam: 08:51 Constitutional: This is a well developed, well nourished patient who is awake, alert, jh7 and in no acute distress. Head/Face: Normocephalic, atraumatic. Eyes: Pupils equal round and reactive to light, extra-ocular motions intact. Lids and lashes normal. Conjunctiva and sclera are non-icteric and not injected. Cornea within normal limits. Periorbital areas with no swelling, redness, or edema. Neck: Trachea midline, no thyromegaly or masses palpated, and no cervical lymphadenopathy. Supple, full range of motion without nuchal rigidity, or vertebral point tenderness. No Meningismus. Cardiovascular: Regular rate and rhythm with a normal S1 and S2. No gallops, murmurs, or rubs. Normal PMI, no JVD. No pulse deficits. Respiratory: Lungs have equal breath sounds bilaterally, clear to auscultation and percussion. No rales, rhonchi or wheezes noted. No increased work of breathing, no retractions or nasal flaring. Abdomen/GI: Soft, non-tender, with normal bowel sounds. No distension or tympany. No guarding or rebound. No evidence of tenderness throughout. Skin: Warm, dry with normal turgor. Normal color with no rashes, no lesions, and no evidence of cellulitis. MS/ Extremity: Pulses equal, no cyanosis. Neurovascular intact. Full, normal range of motion. Neuro: Awake and alert, GCS 15, oriented to person, place, time, and situation. Motor strength 5/5 in all extremities. Sensory grossly intact. Normal gait. 08:51 ENT: Nose: nasal drainage, that is minimal, and is seen coming from both nares, that is clear, Posterior pharynx: is normal, airway is patent, Vital Signs: 08:53 BP 122 / 72; Pulse 72; Resp 16; Temp 98.4; Pulse Ox 99% on R/A; Weight 66.68 kg; Height iw 5 ft. 1 in. ; 10:05 BP 145 / 68; Pulse 76; Resp 19; Pulse Ox 97% ; pm7 08:53 Body Mass Index 27.78 (66.68 kg, 154.94 cm) iw MDM: 08:51 Medical Screening Exam initiated 7 09:42 Differential Diagnosis: Bronchitis Influenza Upper Respiratory Infection Sinusitis [facility] Allergic Rhinitis Viral Syndrome Pneumonia. Data reviewed: vital signs, nurses notes, lab test result(s), radiologic studies, plain films. Independent interpretation of the following test(s) in the Emergency Department X-Ray: My interpretation is No pneumonia. Care significantly affected by the following chronic conditions: Cancer. Counseling: I had a detailed discussion with the patient and/or guardian regarding the historical points, exam findings, and any diagnostic results supporting the discharge/admit diagnosis, to return to the emergency department if symptoms worsen or persist or if there are any questions or concerns that arise at home. 11/14 08:58 Order name: COVID-19 Ag + Flu A+B Ag; Complete Time: 09:39 7 11/14 08:58 Order name: XRAY Chest (1 view); Complete Time: 09:39 7 Administered Medications: No medications were administered Disposition Summary: 11/14/24 09:40 Discharge Ordered Notes: Location: Home [facility] Problem: new [facility] Symptoms: are unchanged [facility] Condition: Stable [facility] Diagnosis - Acute upper respiratory infection, unspecified [facility] Followup: [facility] - With: Private Physician - When: 2 - 3 days - Reason: Recheck today's complaints Discharge Instructions: - Discharge Summary Sheet [facility] - Upper Respiratory Infection, Adult [facility] - Viral Respiratory Infection [facility] Forms: - Medication Reconciliation Form [facility] - Antibiotic Education [facility] - Patient Portal Instructions [facility] - Leadership Thank You Letter [facility] Prescriptions: - Tessalon Perles 100 mg Oral Capsule - take 1 capsule ORAL route every 8 hours As needed; 15 capsule; Refills: 0, [facility] Product Selection Permitted Addendum: 11/19/2024 06:56 Co-signature as Attending Physician, Darryl Apodaca MD I agree with the assessment and c boo plan of care. Signatures: Dispatcher [employer] EDDarryl Patel MD MD cha Williams, Irene, RN RN iw Lawrence Arellano RN RN jl7 Mariam Patiño, FRONT OFFICE COORDINATOR [place] [id number] Corrections: (The following items were deleted from the chart) 11/14 08:58 08:58 COVID-19 Ag + Flu A+B [id number] ordered. EDDE EDDE
[2024-11-14 10:10] VITALS: TEMP 98.4
[2024-11-14 10:11] VITALS: BP 145/68; O2SAT 97
== END 2024-11-14 10:07 | disposition home or self-care (01) ==
LOC: ER 08:41
DX: J06.9 Acute upper respiratory infection, unspecified (principal); Z11.52 Encounter for screening for COVID-19; C92.10 Chronic myeloid leukemia, BCR/ABL-positive, not having achieved remission
CPT/HCPCS: 36415; 71045; 87428; 99283